=== PATIENT | male | born 1955 | race Two or more races ===

== ENCOUNTER 2020-04-17 12:57 | Inpatient (IN) | payer MEDICARE, SELFPAY ==
[2020-04-17 13:45] VITALS: BP 119/74; PULSE 70; RESP 18; TEMP 36.9; O2SAT 98
--- NOTE | 2020-04-17 14:38 | ED.GENADULT ---
HPI - General Adult General Chief complaint: General Medical Stated complaint: gi bleed Time Seen by Provider: 04/17/20 14:22 Source: patient Mode of arrival: ambulatory Limitations: no limitations History of Present Illness HPI narrative: 64 yo male with past medical history of eczema, OA, obesity, GERD, HLD, HTN, tubular adenoma here with rectal bleeing. Patient tells me Yesterday he had some constipation and straining but today went to move his bowels and noticed bright red bleeding from the rectum. He tells me it filled the toilet bowl and was liquid stool. Had 5 or 6 episodes of this and then brought himself into the emergency department. No abdominal pain, vomiting. No fevers or chills. Denies current alcohol use. Last colonoscopy in [address] Arreaga which showed severe diverticulosis in the sigmoid left colon and internal and external hemorrhoids. Takes naproxen PRN (several times weekly). Onset (ago): day(s) (1 day ) Radiation: non-radiation Severity: mild Relieving factors: none Exacerbating factors: none Associated symptoms: denies other symptoms Treatments prior to arrival: none Related Data Home Medications Medication Instructions Recorded Confirmed aspirin 81 mg tablet,delayed 81 mg PO DAILY 04/04/20 04/17/20 release fexofenadine 180 mg tablet 180 mg PO DAILY 04/04/20 04/17/20 fluticasone propionate 50 2 spray INTRANASAL DAILY 04/04/20 04/17/20 mcg/actuation nasal spray,suspension lisinopril 10 mg tablet 10 mg PO DAILY 04/04/20 04/17/20 Previous Rx's Medication Instructions Recorded blood pressure monitor #1 ea 04/04/20 metronidazole 1 % topical gel 1 applic TOPICAL DAILY #60 g 04/04/20 naproxen 500 mg tablet 500 mg PO BID PRN #60 tab 04/04/20 triamcinolone acetonide 0.5 % 1 applic TOPICAL BID 14 Days #15 g 04/04/20 topical cream Allergies Allergy/AdvReac Type Severity Reaction Status Date / Time No Known Allergies Allergy Verified 04/04/20 11:09 [No Known Allergies*] Review of Systems Review of Systems: Yes all other systems are reviewed and are negative Constitutional: Constitutional: Reports no additional constitutional complaints, Denies body ache(s), Denies chills, Denies fever(s), Denies headache(s) and Denies weakness Eyes: Eyes: Reports no additional eye complaints and Denies change in vision ENT: Reports system reviewed and no additional complaints, except as documented, Denies dizziness, Denies headache(s), Denies nasal congestion, Denies nasal discharge and Denies neck pain Cardiovascular: Cardiovascular: Reports no additional cardiovascular complaints, Denies chest pain, Denies leg edema and Denies dyspnea Respiratory: Respiratory: Reports no additional respiratory complaints, Denies cough and Denies dyspnea Gastrointestinal: Gastrointestinal: Reports no additional gastrointestinal complaints, Denies abdominal pain, Reports hematochezia, Denies diarrhea, Denies nausea and Denies vomiting Genitourinary: Genitourinary: Denies urinary incontinence Musculoskeletal: Musculoskeletal: Reports no additional musculoskeletal complaints, Denies back pain, Denies arthralgias, Denies joint swelling, Denies neck pain, Denies numbness and Denies tingling Integumentary/Breasts: Skin/Breast: Reports system reviewed and no additional complaints, except as docu and Denies rash Neurologic: Reports system reviewed and no additional complaints, except as documented, Denies Abnormal speech present, Denies dizziness, Denies headache(s), Denies numbness, Denies tingling and Denies weakness PMFSH Past Medical History Attestation statement: The following information was validated with the patient. Source: old records reviewed and obtained from family Medical History Alcohol abuse GERD (gastroesophageal reflux disease) Hypercholesterolemia Hypertension Obesity (BMI 30-39.9) Osteoarthritis Tubular adenoma of colon Surgical History History of tonsillectomy Lipoma Family History Family History Father CVD (cardiovascular disease) Stroke Mother No problems noted. Paternal Aunt Myocardial infarction Paternal Uncle Myocardial infarction Social History Social History Alcohol intake: unknown Smoking Status: Unknown if ever smoked Use of substances other than those prescribed or required for medical reasons: No Advance Directives: No Advance Directives Information Provided: No Physical Exam Vital Signs: Vital Signs: Vital Signs Temp Pulse Resp BP Pulse Ox 10/27/20 15:01 98.0 F 64 18 127/79 97 04/17/20 13:45 98.5 F 70 18 119/74 98 Body Mass Index 0.3 Const: General: cooperative, healthy appearing, comfortable and no acute distress Orientation/consciousness: patient oriented x3 Limitations: no limitations HENMT: Head: Yes normal to inspection Ears: hearing grossly normal bilaterally General nose exam: Normal external nose present Face and sinus: Yes normal facial exam Mouth: Normal oral and palatal mucosa present Throat: Yes posterior oropharynx normal Eyes: General: appearance normal, both eyes and all related structures Pupils: Equal, round and reactive pupils present Neck: Neck: Yes normal visual inspection Chest: Chest palpation & inspection: normal inspection of the chest Resp: Effort & Inspection: normal respiratory effort Auscultation: clear to auscultation bilaterally Cardio: Rate: regular rate Rhythm: regular rhythm Peripheral pulses: Peripheral pulses 2+ throughout GI: Inspection: Yes normal to inspection Palpation (GI): Soft to palpation and nontender Auscultation: normal bowel sounds Rectal Exam - Male: Yes visual inspection normal, Yes normal sphincter tone, Yes heme positive stool (Bright red ) and Yes tenderness (mild ) Back/Spine/Pelvis: Thoracic/Lumbar Spine: thoracic and lumbar spine normal to inspection Skin: General skin exam: no rashes or lesions noted Neuro: General: patient oriented x3, no focal motor deficits and normal sensation to monofilament Cranial nerves: Yes Equal, round and reactive pupils present Cognition (Neuro): normal cognition Speech: No Abnormal speech present Gait exam (Neuro): Normal gait present Motor exam (neuro): 5/5 motor strength present throughout Extrem: General: Yes normal to inspection Course Course Course Narrative: Patient here with rectal bleeding since this morning. Six episodes, bright red feelings with the bowl. No abdominal pain. Stable vital signs and well appearing with benign abdomen. Rectal exam shows bright red blood. Will check labs. 1530- Labs are unremarkable. Call out to GI to discuss. No additional episodes while the patient has been here in the emergency department for 2.5hrs. Briefly spoke to Dr Perez from GI. Patient will need observation x 24 hrs. She is in a procedure and will call back when done. Ordered Rapid COVID for admission. 1600-Patient called me to bathroom as he had one large bowel movement liquid and BRB filling the toilet bowl. Brought back to room. Ordered lactic acid, type and screen. Spoke to attending physician Dr Murphy who recommended CT A/P with IV contrast. 1700-Call back from Dr Perez. Recommended speaking to general surgery as patient has been followed by them with scheduled colonoscopies d/t the history of tubular adenoma. She did request a GI bleed study unfortunately the patient has already had a CT A/P with IV contrast. Will discuss with general surgery when results back. Sign out to Desirae PHELPS pending above. Medical Decision Making MDM Narrative Medical decision making narrative: Considered internal/external hemorrhoid, diverticulitis, GI bleeding, ischemic colitis. Less likely diverticulitis with no abdominal pain, vomiting, fever. Less likely ischemic colitis with normal vital signs, no fever and no abdominal pain. Less likely GI bleeding with no continued symptoms. May be hemorrhoids. Medical Records Medical records reviewed: Yes I reviewed the patient's medical records. Lab Data Lab results reviewed: Yes I reviewed the patient's lab results. Result diagrams: 04/17/20 15:03 04/17/20 15:03 Labs: Lab Results 04/17/20 04/17/20 04/17/20 Range/Units 15:03 15:03 15:03 WBC 7.3 (4.8-10.8) X10*3/uL RBC 4.56 L (4.60-5.80) X10*6/uL Hgb 13.0 L (14.0-18.0) g/dl Hct 40.5 L (42-52) % MCV 88.8 (80-98) fL MCH 28.5 (27.0-33.0) pg MCHC 32.1 (31.0-36.0) g/dl RDW 13.2 (11.0-16.0) % Plt Count 185 (160-400) X10*3/uL MPV 12.8 H (9.4-12.4) fL Immature Gran % (Auto) 0.5 H (0.0-0.4) % Neut % (Auto) 73.6 H (45-73) % Lymph % (Auto) 17.1 L (20-40) % [place] % (Auto) 6.8 (2-11) % Eos % (Auto) 1.6 (0-4) % Baso % (Auto) 0.4 (0-2) % Lymph # (Auto) 1.3 (1.2-4.9) X10*3/uL [place] # (Auto) 0.5 (0.1-1.2) X10*3/uL Eos # (Auto) 0.1 (0.0-0.4) X10*3/uL Baso # (Auto) 0.0 (0.0-0.2) X10*3/uL Abs Immat Gran (auto) 0.04 H (0.00-0.03) X10*3/uL Absolute Neuts (auto) 5.4 (2.0-8.3) X10*3/uL Absolute Nucleated RBC 0.000 (0.0-0.012) X10*3/uL Nucleated RBC % (auto) 0.0 (0.0-0.2) /100WBC PT 14.6 H (10.8-13.0) SEC INR 1.2 H (0.9-1.1) Sodium 143 (135-145) mmol/L Potassium 4.4 (3.3-5.1) mmol/l Chloride 108 (96-108) mmol/L Carbon Dioxide 26 (22-29) mmol/L Anion Gap 13 (12-20) BUN 22 H (9-16) mg/dL Creatinine 0.73 (0.5-1.4) mg/dL Estim Creat Clear Calc 123.8 Estimated GFR > 60 Random Glucose 98 (60-115) mg/dL Lactic Acid (0.5-2.0) mmol/L Calcium 9.0 (8.4-10.2) mg/dL Total Bilirubin 0.5 (0.0-1.0) mg/dL Direct Bilirubin 0.2 (0.0-0.5) mg/dL AST 18 (5-37) U/L ALT 15 (0-40) U/L Alkaline Phosphatase 80 (39-117) U/L Total Protein 6.4 L (6.5-8.0) g/dL Albumin 3.9 (3.5-5.0) g/dL Stool Occult Blood (NEG) Blood Type Antibody Screen 04/17/20 04/17/20 04/17/20 Range/Units 15:03 16:09 16:09 WBC (4.8-10.8) X10*3/uL RBC (4.60-5.80) X10*6/uL Hgb (14.0-18.0) g/dl Hct (42-52) % MCV (80-98) fL MCH (27.0-33.0) pg MCHC (31.0-36.0) g/dl RDW (11.0-16.0) % Plt Count (160-400) X10*3/uL MPV (9.4-12.4) fL Immature Gran % (Auto) (0.0-0.4) % Neut % (Auto) (45-73) % Lymph % (Auto) (20-40) % [place] % (Auto) (2-11) % Eos % (Auto) (0-4) % Baso % (Auto) (0-2) % Lymph # (Auto) (1.2-4.9) X10*3/uL [place] # (Auto) (0.1-1.2) X10*3/uL Eos # (Auto) (0.0-0.4) X10*3/uL Baso # (Auto) (0.0-0.2) X10*3/uL Abs Immat Gran (auto) (0.00-0.03) X10*3/uL Absolute Neuts (auto) (2.0-8.3) X10*3/uL Absolute Nucleated RBC (0.0-0.012) X10*3/uL Nucleated RBC % (auto) (0.0-0.2) /100WBC PT (10.8-13.0) SEC INR (0.9-1.1) Sodium (135-145) mmol/L Potassium (3.3-5.1) mmol/l Chloride (96-108) mmol/L Carbon Dioxide (22-29) mmol/L Anion Gap (12-20) BUN (9-16) mg/dL Creatinine (0.5-1.4) mg/dL Estim Creat Clear Calc Estimated GFR Random Glucose (60-115) mg/dL Lactic Acid 1.7 (0.5-2.0) mmol/L Calcium (8.4-10.2) mg/dL Total Bilirubin (0.0-1.0) mg/dL Direct Bilirubin (0.0-0.5) mg/dL AST (5-37) U/L ALT (0-40) U/L Alkaline Phosphatase (39-117) U/L Total Protein (6.5-8.0) g/dL Albumin (3.5-5.0) g/dL Stool Occult Blood POS (NEG) Blood Type AB Positive Antibody Screen NEGATIVE Discharge Plan Discharge Clinical Impression: Acute GI bleeding Patient Disposition: Admitted As Inpatient Sign Out Sign Out Data: Sign Out Comment: Pending CT A/P, discussion with general surgery and admit Last updated by Nargis Ta NP at 04/17/20 17:03
[2020-04-17 15:01] VITALS: BP 127/79; PULSE 64; RESP 18; TEMP 36.7; O2SAT 97
[2020-04-17 15:09] LABS: MANUAL DIFF FLAG NO
[2020-04-17 15:13] LABS: Basophils Percent Auto 0.4 % (0-2); Eosinophils Absolute Auto 0.1 X10*3/uL (0.0-0.4); Eosinophils Percent Auto 1.6 % (0-4); Hematocrit 40.5 % (42-52); Imm Gran Abs Auto 0.04 X10*3/uL (0.00-0.03); Imm Gran Pct Auto 0.5 % (0.0-0.4); Lymphocytes Absolute Auto 1.3 X10*3/uL (1.2-4.9); Lymphocytes Percent Auto 17.1 % (20-40); Mean Corpuscular HGB Conc 32.1 g/dl (31.0-36.0); Mean Corpuscular Hemoglobin 28.5 pg (27.0-33.0); Mean Corpuscular Volume 88.8 fL (80-98); Mean Platelet Volume 12.8 fL (9.4-12.4); Monocytes Absolute Auto 0.5 X10*3/uL (0.1-1.2); Monocytes Percent Auto 6.8 % (2-11); Neutrophils Absolute Auto 5.4 X10*3/uL (2.0-8.3); Neutrophils Percent Auto 73.6 % (45-73); Platelet Count 185 X10*3/uL (160-400); Red Blood Count 4.56 X10*6/uL (4.60-5.80); Red Cell Distribution Width 13.2 % (11.0-16.0); White Blood Count 7.3 X10*3/uL (4.8-10.8)
[2020-04-17 15:14] LABS: OBS Int Ctl Valid YES
[2020-04-17 15:18] LABS: INTERNATIONAL NORM RATIO 1.2 (0.9-1.1); Prothrombin Time 14.6 SEC (10.8-13.0)
[2020-04-17 15:32] LABS: OBS1 POS (NEG)
[2020-04-17 15:33] LABS: Alanine Aminotransferase 15 U/L (0-40); Albumin Level 3.9 g/dL (3.5-5.0); Alkaline Phosphatase 80 U/L (39-117); Anion Gap 13 (12-20); Aspartate Amino Transferase 18 U/L (5-37); Bilirubin Direct 0.2 mg/dL (0.0-0.5); Bilirubin Total 0.5 mg/dL (0.0-1.0); Blood Urea Nitrogen 22 mg/dL (9-16); Carbon Dioxide 26 mmol/L (22-29); Chloride 108 mmol/L (96-108); Creatinine Clr Calc Pharmacy 123.8; Estimated Glomerular Filt Rate > 60; Glucose Random 98 mg/dL (60-115); Potassium 4.4 mmol/l (3.3-5.1); Sodium 143 mmol/L (135-145); Total Protein 6.4 g/dL (6.5-8.0)
--- NOTE | 2020-04-17 15:59 | CT_ITS ---
EXAMINATION: CT ABDOMEN AND PELVIS WITH CONTRAST CLINICAL INFORMATION: Rectal bleeding. COMPARISON: None TECHNIQUE: Multidetector volumetric images were obtained from the superior aspect of the liver through the pubic symphysis following administration 85 mL of Omnipaque 350 intravenous contrast. Sagittal and coronal reformatted images were obtained on the technologist's workstation. Oral Contrast: No. This CT examination was performed using dose optimization techniques as appropriate, variously including the following: *Automated exposure control. *Adjustment of mA and/or kV according to patient size (this includes techniques or standardized protocols for targeted exams where dose is matched to indication/reason for exam; i.e. extremities or head). *Use of iterative reconstruction technique. DLP: 650 mGy-cm FINDINGS: LUNG BASES: The visualized lung bases are unremarkable. LIVER, GALLBLADDER, AND BILIARY TREE: The liver is normal in size, shape, and attenuation. No focal hepatic lesion or biliary ductal dilatation is present. The gallbladder is unremarkable with no evidence of radiopaque gallstones, gallbladder wall thickening, or obvious pericholecystic inflammatory changes. PANCREAS: Unremarkable. SPLEEN: A small splenule is seen. ADRENAL GLANDS: Unremarkable. KIDNEYS AND URETERS: The kidneys are normal in size, shape, and attenuation. Multiple bilateral small renal hypodensities are seen, the largest of which measures 1.1 cm. The larger lesions measure water density and these all probably represent cysts. Small parapelvic cysts are also present bilaterally. No suspicious solid mass is seen. No hydronephrosis, hydroureter, or calculi seen. No perinephric stranding. BLADDER: Unremarkable. GASTROINTESTINAL TRACT: Moderately extensive diverticular changes are present in the colon without evidence of diverticulitis. The small and large bowel are otherwise unremarkable. There is no evidence of active GI bleed with extravasation of contrast media. The appendix is unremarkable. ABDOMINAL WALL: No significant hernia is appreciated. A small indirect right renal hernia is present containing only fat. LYMPH NODES: Normal. VASCULAR: Unremarkable. PELVIC VISCERA: Prostate and seminal vesicles appear normal. Some calcifications are present in the vas deferens. OSSEOUS STRUCTURES: Degenerative changes in the lumbosacral spine most marked from L3 through S1. CT/CT abdomen pelvis w con IMPRESSION: No significant abnormality. Incidental note made of bilateral small renal cysts, colonic diverticulosis without diverticulitis and degenerative changes in the spine.
[2020-04-17 16:38] LABS: Lactic Acid 1.7 mmol/L (0.5-2.0)
[2020-04-17 17:16] LABS: SARS COV2 PCR INHOUSE NEGATIVE (Negative)
[2020-04-17] MEDS: iohexoL 350 MG/ML 100 ML INFUS..BTL IV (17:17)
[2020-04-17 17:59] VITALS: BP 123/79; PULSE 63; RESP 18; O2SAT 98
[2020-04-17 19:25] VITALS: BP 151/94; PULSE 70; RESP 14; O2SAT 99
--- NOTE | 2020-04-17 19:41 | PC.NURSE ---
Pt A&O, denies sob or chest pain Hospitalist into assess Pt. The plan is for pt to be admitted, will continue to monitor pt. Call flores within reach, pt resting in bed.
[2020-04-17 20:55] VITALS: BP 117/75; PULSE 70; RESP 16; O2SAT 97
--- NOTE | 2020-04-17 20:58 | PC.NURSE ---
Called for report, Rn will call back
--- NOTE | 2020-04-17 21:14 | HP_ITS ---
DATE OF SERVICE: 04/17/2020 CHIEF COMPLAINT: Rectal bleeding. HISTORY OF PRESENT ILLNESS: A 64-year-old man, presenting from home with episodes of rectal bleeding. He reported that this morning around 6 a.m., he had blood with a bowel movement that was mixed with stool and noticed that there was dark blood maroon color. He then reports he had 7 other episodes of this after. He denies any history of GI bleed in the past, however, he does have a history of tubular adenomas. He denied nausea, vomiting, fever, chills, recent illness. He denied any abdominal pain or cramping. Last colonoscopy was in 2017, which showed severe diverticulosis in the left sigmoid colon with internal and external hemorrhoids. The patient reports that he does take naproxen as needed, but not on a regular basis. Abdominal CT showed no significant abnormality. His H and H are stable. Stool occult was positive. Vitals are stable. Blood pressure was mildly elevated. In the ER, he is resting in bed. He will be admitted for further management and treatment of acute GI bleed. PAST MEDICAL HISTORY: 1. Arthritis. 2. Tubular adenomas. 3. Hypertension. 4. GERD. 5. Hyperlipidemia. 6. Osteoarthritis. 7. Obesity. PAST SURGICAL HISTORY: 1. Tonsillectomy. 2. Lipoma removal. FAMILY HISTORY: Reports cardiovascular disease and stroke in his father. Paternal aunt had myocardial infarction, paternal uncle had myocardial infarction as well. SOCIAL HISTORY: Reports he quit smoking 11 years ago. Occasional alcohol use. No drug use. ALLERGIES: NO KNOWN ALLERGIES. MEDICATIONS: 1. Aspirin 81 mg p.o. daily. 2. Janay 180 mg p.o. daily. 3. Fluticasone propionate 2 sprays intranasally daily. 4. Lisinopril 10 mg p.o. daily. 5. Metrogel 1 application topically daily. 6. Triamcinolone acetonide 1 application topically b.i.d. REVIEW OF SYSTEMS: CONSTITUTIONAL: Denies any recent fever, chills, or decrease in appetite. RESPIRATORY: Denies any shortness of breath, cough, or sputum production. CARDIOVASCULAR: Denies any chest pain, orthopnea, PND, or edema. GASTROINTESTINAL: Denies any dysphagia, abdominal pain, nausea, vomiting. Reported diarrhea with bloody stool. NEUROPSYCH: Denies any weakness or seizures. All other systems are reviewed and are negative. PHYSICAL EXAMINATION: CONSTITUTIONAL: Resting in bed, appearing in no acute distress. VITAL SIGNS: 98.0, 70, 14, 151/94, 99% on room air. SKIN: Intact without rashes or sores. HEENT: Head is normocephalic, atraumatic. Eyes, pupils are PERRLA. Sclerae anicteric. Mouth and Throat: Mucous membranes are intact and moist. NECK: Supple. No lymphadenopathy. No JVD noted. CHEST: Clear to auscultation without wheezes, rhonchi, or rales. HEART: Regular rate and rhythm. Clear S1, S2. No murmurs, rubs, or gallops. ABDOMEN: Positive bowel sounds. Abdomen is soft, nontender. No hepatomegaly or splenomegaly noted. NEURO: The patient is alert and oriented x3. Cranial nerves II through XII grossly intact without focal deficits. LABORATORY DATA: WBC 7.3, hemoglobin 13.0, hematocrit 40.5, platelets 185. Sodium is 143, potassium is 4.4, chloride is 108, bicarb is 26, BUN is 22, creatinine is 0.73. Lactic acid is 1.7. Stool occult positive. Coronavirus negative. ASSESSMENT AND PLAN: 64-year-old man, who is being admitted with acute GI bleed with history of tubular adenoma. 1. Gastrointestinal bleed, may be related to tubular adenoma. GI to follow. We will check H and H q.6 hours, type and screen. N.p.o. after midnight. Hold aspirin. Add PPI. 2. Hypertension. Stable blood pressure. Continue lisinopril. 3. Deep vein thrombosis prophylaxis with mechanical compression boots. 4. Case discussed with Dr. Matos. 5. Full code. SHANTELLE Sheldon JR/NOEL / [id number]
--- NOTE | 2020-04-17 21:29 | PC.NURSE ---
Pt a&o, no sob or chest pain. no dizziness or lightheadness. report called to RN.
[2020-04-17 21:56] VITALS: BP 138/89; PULSE 83; RESP 18; TEMP 36.9; O2SAT 98
[2020-04-17 22:20] LABS: Hemoglobin 12.3 g/dl (14.0-18.0)
[2020-04-17] MEDS: 0.9 % Sodium Chloride Flush 3 ML SYRINGE IVFLUSH (22:37)
[2020-04-17 23:07] VITALS: BMI 33.0
[2020-04-18] VITALS: BP 121/63; PULSE 73; RESP 18; TEMP 36.3; O2SAT 97
[2020-04-18 03:38] VITALS: BP 116/62; PULSE 70; RESP 18; TEMP 36.4; O2SAT 97
[2020-04-18] MEDS: Omeprazole 20 MG CAPSULE.DR PO ×2 (05:07→16:30)
[2020-04-18 06:21] LABS: MANUAL DIFF FLAG NO
[2020-04-18 06:41] LABS: Basophils Percent Auto 0.1 % (0-2); Eosinophils Absolute Auto 0.2 X10*3/uL (0.0-0.4); Eosinophils Percent Auto 2.5 % (0-4); Hematocrit 38.9 % (42-52); Hemoglobin 12.5 g/dl (14.0-18.0); Imm Gran Abs Auto 0.05 X10*3/uL (0.00-0.03); Imm Gran Pct Auto 0.7 % (0.0-0.4); Lymphocytes Absolute Auto 1.6 X10*3/uL (1.2-4.9); Lymphocytes Percent Auto 22.6 % (20-40); Mean Corpuscular HGB Conc 32.1 g/dl (31.0-36.0); Mean Corpuscular Hemoglobin 28.5 pg (27.0-33.0); Mean Corpuscular Volume 88.8 fL (80-98); Mean Platelet Volume 12.1 fL (9.4-12.4); Monocytes Absolute Auto 0.6 X10*3/uL (0.1-1.2); Monocytes Percent Auto 8.9 % (2-11); Neutrophils Absolute Auto 4.7 X10*3/uL (2.0-8.3); Neutrophils Percent Auto 65.2 % (45-73); Platelet Count 195 X10*3/uL (160-400); Red Blood Count 4.38 X10*6/uL (4.60-5.80); Red Cell Distribution Width 13.3 % (11.0-16.0); White Blood Count 7.2 X10*3/uL (4.8-10.8)
[2020-04-18 07:03] LABS: Anion Gap 12 (12-20); Blood Urea Nitrogen 21 mg/dL (9-16); Calcium 8.2 mg/dL (8.4-10.2); Carbon Dioxide 24 mmol/L (22-29); Chloride 106 mmol/L (96-108); Creatinine Clr Calc Pharmacy 103.3; Estimated Glomerular Filt Rate > 60; Glucose Random 95 mg/dL (60-115); Potassium 4.3 mmol/l (3.3-5.1); Sodium 138 mmol/L (135-145)
[2020-04-18 07:22] VITALS: BP 131/65; PULSE 61; RESP 20; TEMP 36.7; O2SAT 98
[2020-04-18 08:19] VITALS: BP 131/65; PULSE 61
[2020-04-18] MEDS: lisinopriL 10 MG TABLET PO (08:19)
[2020-04-18] MEDS: Fluticasone Propionate Nasal 16 GM SPRAY 2 SPRAY NOSTRIL-B (08:19)
[2020-04-18] MEDS: 0.9 % Sodium Chloride Flush 3 ML SYRINGE IVFLUSH (08:19)
--- NOTE | 2020-04-18 09:34 | PM.DS ---
DS: Providers Provider Date of admission: 04/17/20 Date of Service: April 18, 2020 D Primary care physician: Jennifer Downing MD Consults: 04/17/20 21:31 Consult to Gastroenterology Routine Consulting Provider: Antoni Gerardo Reason for consultation: GI BLEED, HX TUBULAR ADENOMA Has provider been notified: No DS: Summary Hospital Course Hospital Course: HPI from admission A 64-year-old man, presenting from home with episodes of rectal bleeding. He reported that this morning around 6 a.m., he had blood with a bowel movement that was mixed with stool and noticed that there was dark blood maroon color. He then reports he had 7 other episodes of this after. He denies any history of GI bleed in the past, however, he does have a history of tubular adenomas. He denied nausea, vomiting, fever, chills, recent illness. He denied any abdominal pain or cramping. Last colonoscopy was in 2017, which showed severe diverticulosis in the left sigmoid colon with internal and external hemorrhoids. The patient reports that he does take naproxen as needed, but not on a regular basis. Abdominal CT showed no significant abnormality. His H and H are stable. Stool occult was positive. Vitals are stable. Blood pressure was mildly elevated. In the ER, he is resting in bed. He will be admitted for further management and treatment of acute GI bleed. PAST MEDICAL HISTORY: 1. Arthritis. 2. Tubular adenomas. 3. Hypertension. 4. GERD. 5. Hyperlipidemia. 6. Osteoarthritis. 7. Obesity. PAST SURGICAL HISTORY: 1. Tonsillectomy. 2. Lipoma removal. Hospital course: He was observed overnight and did not have any further bleeding. His blood count has been stable with present Hemoglobin 12.5, 13 on admission. Time Spent with Patient Time attestation: Total time spent providing and/or coordinating discharge services: Physical Exam Vital Signs: Vital Signs: Vital Signs Temp Pulse Resp BP Pulse Ox 04/18/20 08:19 61 131/65 04/18/20 07:22 98.1 F 61 20 131/65 98 04/18/20 03:38 97.5 F 70 18 116/62 97 04/18/20 00:00 97.3 F 73 18 121/63 97 04/17/20 21:56 98.4 F 83 18 138/89 98 04/17/20 20:55 70 16 117/75 97 04/17/20 19:25 70 14 151/94 H 99 04/17/20 17:59 63 18 123/79 98 04/17/20 15:01 98.0 F 64 18 127/79 97 04/17/20 13:45 98.5 F 70 18 119/74 98 Body Mass Index 33.0 Constitutional Awake and Alert, No apparent distress Neck Supple, No lymphadenopathy Cardiovascular RRR, No M/R/G, S1 S2, No S3 S4, No pedal edema Respiratory Lungs clear, No respiratory distress Gastrointestinal Non tender, Non-distended, rectal exam deffered Skin No rash Neurological Alert & oriented x3 Psychological Appropriate affect DS: Data Data Completed and Pending Labs on day of discharge: Labs from last 24 hours 04/18/20 04/18/20 04/17/20 05:34 05:34 22:10 WBC 7.2 RBC 4.38 L Hgb 12.5 L 12.3 L Hct 38.9 L 38.0 L MCV 88.8 MCH 28.5 MCHC 32.1 RDW 13.3 Plt Count 195 MPV 12.1 Immature Gran % (Auto) 0.7 H Neut % (Auto) 65.2 Lymph % (Auto) 22.6 Bradford % (Auto) 8.9 Eos % (Auto) 2.5 Baso % (Auto) 0.1 Lymph # (Auto) 1.6 Bradford # (Auto) 0.6 Eos # (Auto) 0.2 Baso # (Auto) 0.0 Abs Immat Gran (auto) 0.05 H Absolute Neuts (auto) 4.7 Absolute Nucleated RBC 0.000 Nucleated RBC % (auto) 0.0 PT INR Sodium 138 Potassium 4.3 Chloride 106 Carbon Dioxide 24 Anion Gap 12 BUN 21 H Creatinine 0.70 Estim Creat Clear Calc 103.3 Estimated GFR > 60 Random Glucose 95 Lactic Acid Calcium 8.2 L Total Bilirubin Direct Bilirubin AST ALT Alkaline Phosphatase Total Protein Albumin Stool Occult Blood Coronavirus (PCR) Blood Type Antibody Screen 04/17/20 04/17/20 04/17/20 16:12 16:09 16:09 WBC RBC Hgb Hct MCV MCH MCHC RDW Plt Count MPV Immature Gran % (Auto) Neut % (Auto) Lymph % (Auto) Bradford % (Auto) Eos % (Auto) Baso % (Auto) Lymph # (Auto) Bradford # (Auto) Eos # (Auto) Baso # (Auto) Abs Immat Gran (auto) Absolute Neuts (auto) Absolute Nucleated RBC Nucleated RBC % (auto) PT INR Sodium Potassium Chloride Carbon Dioxide Anion Gap BUN Creatinine Estim Creat Clear Calc Estimated GFR Random Glucose Lactic Acid 1.7 Calcium Total Bilirubin Direct Bilirubin AST ALT Alkaline Phosphatase Total Protein Albumin Stool Occult Blood Coronavirus (PCR) NEGATIVE Blood Type AB Positive Antibody Screen NEGATIVE 04/17/20 04/17/20 04/17/20 15:03 15:03 15:03 WBC RBC Hgb Hct MCV MCH MCHC RDW Plt Count MPV Immature Gran % (Auto) Neut % (Auto) Lymph % (Auto) Bradford % (Auto) Eos % (Auto) Baso % (Auto) Lymph # (Auto) Bradford # (Auto) Eos # (Auto) Baso # (Auto) Abs Immat Gran (auto) Absolute Neuts (auto) Absolute Nucleated RBC Nucleated RBC % (auto) PT 14.6 H INR 1.2 H Sodium 143 Potassium 4.4 Chloride 108 Carbon Dioxide 26 Anion Gap 13 BUN 22 H Creatinine 0.73 Estim Creat Clear Calc 123.8 Estimated GFR > 60 Random Glucose 98 Lactic Acid Calcium 9.0 Total Bilirubin 0.5 Direct Bilirubin 0.2 AST 18 ALT 15 Alkaline Phosphatase 80 Total Protein 6.4 L Albumin 3.9 Stool Occult Blood POS Coronavirus (PCR) Blood Type Antibody Screen 04/17/20 15:03 WBC 7.3 RBC 4.56 L Hgb 13.0 L Hct 40.5 L MCV 88.8 MCH 28.5 MCHC 32.1 RDW 13.2 Plt Count 185 MPV 12.8 H Immature Gran % (Auto) 0.5 H Neut % (Auto) 73.6 H Lymph % (Auto) 17.1 L Bradford % (Auto) 6.8 Eos % (Auto) 1.6 Baso % (Auto) 0.4 Lymph # (Auto) 1.3 Bradford # (Auto) 0.5 Eos # (Auto) 0.1 Baso # (Auto) 0.0 Abs Immat Gran (auto) 0.04 H Absolute Neuts (auto) 5.4 Absolute Nucleated RBC 0.000 Nucleated RBC % (auto) 0.0 PT INR Sodium Potassium Chloride Carbon Dioxide Anion Gap BUN Creatinine Estim Creat Clear Calc Estimated GFR Random Glucose Lactic Acid Calcium Total Bilirubin Direct Bilirubin AST ALT Alkaline Phosphatase Total Protein Albumin Stool Occult Blood Coronavirus (PCR) Blood Type Antibody Screen Discharge Plan Discharge Anticipated Discharge Date/Time: 04/18/20 17:03 Patient Disposition: Home, Self-Care Referrals: Chang,Jennifer Wooten MD [Primary Care Provider] - Discharge Medications: New esomeprazole magnesium [address] for susp in packet 20 mg PO DAILY Qty: 30 RF: 0 Continued lisinopril 10 mg tablet 10 mg PO DAILY RF: 0 fexofenadine [Janay Allergy] 180 mg tablet 180 mg PO DAILY RF: 0 fluticasone propionate 50 mcg/actuation spray,suspension 2 spray intranasal DAILY RF: 0 metronidazole [Metrogel] 1 % gel 1 applic topical DAILY Qty: 60 RF: 0 Discontinued aspirin [Adult Aspirin Regimen] 81 mg tablet,delayed release (DR/EC) 81 mg PO DAILY RF: 0 naproxen [Naprosyn] 500 mg tablet 500 mg PO BID PRN (Reason: pain) Qty: 60 RF: 2 No Action ibuprofen 800 mg tablet 800 mg PO BID 10 Days Qty: 20 RF: 0 furosemide 20 mg tablet 20 mg PO Q OTHER DAY 30 Days Qty: 15 RF: 0 omeprazole 20 mg capsule,delayed release(DR/EC) 20 mg PO DAILY 30 Days Qty: 30 RF: 0 magnesium 30 mg tablet 30 mg PO DAILY 30 Days Qty: 30 RF: 0 Discharge Orders: Discharge Order (Routine); Ordered 04/18/20 Ordered By: Klaus Devlin Diet: advance to your usual diet Activity on Discharge: As tolerated Discharge Date/Time: 04/18/20 18:23 Visit Report Forms: Patient Portal Discharge page Care Plan Goals: to figure out where bleeding is coming from Health Concerns: colon problems that can cause bleeding Plan of Treatment: follow up with Dr. Gerardo for colonoscopy, stop taking Naproxen and ASA for now
--- NOTE | 2020-04-18 10:01 | MHC.CM.PN ---
pt is independet lives with his and 2 children he is working and independent cm intervention is not indicated
[2020-04-18 11:09] VITALS: BP 114/66; PULSE 69; RESP 18; TEMP 36.3; O2SAT 98
--- NOTE | 2020-04-18 11:31 | MHC.CM.PN ---
dc plan home no servceis pt has own transportion home
[2020-04-18 12:10] VITALS: BMI 33.0
[2020-04-18 13:21] LABS: Glucose, Whole Blood 115 mg/dL (60-115)
--- NOTE | 2020-04-18 16:48 | PM.EVENT ---
Event Note Event Note: GI consult dictated Note: consult request received by my office today at 15:21 Presentation is consistent with self limited rectal bleeding. Last colonoscopy 03/08 showed diverticulosis and hemorrhoids. Previous history of colon polyps. Some NSAID use for osteoarthritis could be contributing. Differential includes hemorrhoids, tics, avms colitis and mass lesions. Currently stable with no further bleeding. OK to d/c home He will call my office to schedule outpt colonoscopy.
--- NOTE | 2020-04-19 00:47 | CONS_ITS ---
DATE OF SERVICE: 04/18/2020 REFERRING PHYSICIAN: Klaus Devlin MD REASON FOR CONSULTATION: Rectal bleeding. HISTORY OF PRESENT ILLNESS: The patient is a pleasant 64-year-old man who was admitted to the hospital after presenting to the emergency room with the onset of painless rectal bleeding yesterday. This began in the morning after he ate and had the urge to move his bowels. He passed blood in stool and had multiple bowel movements of red blood with some dark spots in it. There was no abdominal or rectal pain. He has been using some NSAIDs for osteoarthritis pain intermittently, but not on a regular basis. He has no prior history of rectal bleeding and previously underwent colonoscopy in February 2017 that showed diverticulosis and hemorrhoids. Previous colonoscopy had shown adenomas. He was evaluated in the emergency department and admitted to the hospital overnight. He has had no further bleeding and has tolerated diet. His hematocrit has been quite stable. PAST MEDICAL HISTORY: 1. Osteoarthritis. 2. Colon polyps. 3. Hypertension. 4. Gastroesophageal reflux disease. 5. Hyperlipidemia. 6. Elevated BMI. 7. Lipoma surgery from the left forearm. 8. Tonsillectomy. CURRENT MEDICATIONS: His current medication list is reviewed in the chart. He is on aspirin as well as using the NSAIDs. FAMILY HISTORY: This is negative for colorectal cancer. SOCIAL HISTORY: He denies tobacco and alcohol abuse. REVIEW OF SYSTEMS: SKIN: No pruritus. HEENT: Negative. CARDIOPULMONARY: He denies shortness of breath or chest pain. GASTROINTESTINAL: As above. GENITOURINARY: Negative. NEUROPSYCHIATRIC: Negative. PHYSICAL EXAMINATION: GENERAL: Reveals a pleasant male, in no acute distress. VITAL SIGNS: Stable. SKIN: Anicteric. HEENT: Shows no scleral icterus. NECK: Without lymphadenopathy or thyromegaly. LUNGS: Clear. HEART: Shows regular rate and rhythm. S1, S2. No murmur. ABDOMEN: Soft without focal masses or tenderness. Bowel sounds are present. No organomegaly is noted. EXTREMITIES: Without edema. IMPRESSION: Appears to have had self-limited gastrointestinal bleeding. The differential diagnosis for this includes hemorrhoids and diverticulosis as well as arteriovenous malformations and colitis given his nonsteroidal anti-inflammatory drugs usage. CT scanning did not show any evidence of any significant abnormalities. Given that he is stable and not had any further bleeding with a stable H and H, I would recommend he be discharged for outpatient followup. He has been advised to contact my office to schedule colonoscopy. This will be arranged. He understands risks and benefits and agrees to proceed. Thanks for asking me to see him. I will follow him in the hospital as needed. MD AMY Humphreys/NOEL / [phone]
== END 2020-04-18 18:23 | disposition home or self-care (01) | DRG 379 ==
LOC: HO.ED 18:43 → HO.IMC 21:02 → HO.S3 04-18 11:16
PROVIDERS: Nurse Practitioner Acute Care; Nurse Practitioner Family; Admitting Provider Internal Medicine; Emergency Provider Emergency Medicine; PCP Internal Medicine; Visit Provider Internal Medicine
DX: K57.31 Diverticulosis of large intestine without perforation or abscess with bleeding (principal); K21.9 Gastro-esophageal reflux disease without esophagitis; E78.5 Hyperlipidemia, unspecified; M19.90 Unspecified osteoarthritis, unspecified site; Z20.828 Contact with and (suspected) exposure to other viral communicable diseases; Z87.891 Personal history of nicotine dependence; Z79.51 Long term (current) use of inhaled steroids; Z79.82 Long term (current) use of aspirin; Z79.899 Other long term (current) drug therapy
CPT/HCPCS: 36415; 74177; 80048; 80076; 82272; 82947; 83605; 85014; 85018; 85025; 85610; 86850; 86900; 86901; 87635; 99285; Q9967

== ENCOUNTER 2020-04-26 14:00 | Outpatient (REF) | payer MEDICARE, SELFPAY ==
--- NOTE | 2020-04-26 14:05 | US_ITS ---
EXAMINATION: US VENOUS ULTRASOUND WITH DOPPLER LOWER EXTREMITY, RIGHT CLINICAL INFORMATION: Right lower extremity edema. Assess for occult DVT COMPARISON: Right lower extremity venous ultrasound with Doppler 04/04/2019 TECHNIQUE: Ultrasound of the deep veins is performed from the hip to the calf with compression sonography and color and pulse Doppler assessment. Spectral analysis with color-flow imaging is performed. FINDINGS: There is normal venous compression and respiratory variation and augmented flow. The visualized common femoral vein, superficial femoral vein, profunda femoral vein, popliteal vein, and the trifurcation region shows no evidence of deep venous thrombosis. No popliteal fossa cyst. US/US venous duplex LE RT IMPRESSION: No DVT demonstrated in the right lower extremity.
== END 2020-04-26 14:01 | disposition home or self-care (01) ==
LOC: HO.HMGCX 14:00
PROVIDERS: PCP Internal Medicine; Visit Provider Nurse Practitioner Family
DX: R60.0 Localized edema (principal)
CPT/HCPCS: 93971

== ENCOUNTER 2020-05-01 10:36 | Day surgery (SDC) | payer MEDICARE, SELFPAY ==
[2020-04-26 19:56] VITALS: BMI 30.7
--- NOTE | 2020-04-30 10:38 | P.CONAN_ITS ---
Documented by User: Susan Landrum 04/30/20 10:40 HPI - Anesthesia Eval Consult details Narrative: 64yo M for Colonoscopy [facility] Past Medical History Medical History Alcohol abuse GERD (gastroesophageal reflux disease) Hypercholesterolemia Hypertension Obesity (BMI 30-39.9) Osteoarthritis Swelling of right lower extremity Tubular adenoma of colon Family History Family History Father CVD (cardiovascular disease) Stroke Mother No problems noted. Paternal Aunt Myocardial infarction Paternal Uncle Myocardial infarction Surgical History Surgical History History of tonsillectomy Lipoma Social History Social History Household Members: Significant Other Housing: House Alcohol intake: unknown Smoking Status: Former smoker Smoking Quit Date: 2009 Use of substances other than those prescribed or required for medical reasons: No Substance Use Type Other:: patient stated quit ETOH 10 years ago Advance Directives: No Advance Directives Information Provided: No Advance Directives on File: No service: No Meds Allergies Allergy/AdvReac Type Severity Reaction Status Date / Time No Known Allergies Allergy Verified 04/26/20 20:01 [No Known Allergies*] Home Medications Medication Instructions Recorded Confirmed Type fexofenadine 180 mg tablet 180 mg PO DAILY 04/04/20 04/26/20 History fluticasone propionate 50 2 spray INTRANASAL DAILY 04/04/20 04/26/20 History mcg/actuation nasal spray,suspension lisinopril 10 mg tablet 10 mg PO DAILY 04/04/20 04/26/20 History Tylenol Arthritis 650 mg PO Q8-10H PRN 04/26/20 04/26/20 History famotidine 40 mg PO DAILY 04/26/20 04/26/20 History Exam Exam Date and Time: April 30, 2020 1038 Height,Weight and Vital Signs: Height 5 ft 5 in Weight 83.915 kg Pertinent Lab Results Pertinent Lab Results: Laboratory Tests 04/18/20 04/18/20 05:34 05:34 WBC 7.2 Hgb 12.5 L Hct 38.9 L Plt Count 195 Sodium 138 Potassium 4.3 Chloride 106 Carbon Dioxide 24 BUN 21 H Creatinine 0.70 Assessment and Plan Assessment Anesthesia Assessment: Chart Reviewed Documented by User: Sonia Mendez 05/01/20 12:22 PMFSH Past Medical History Medical History Alcohol abuse GERD (gastroesophageal reflux disease) Hypercholesterolemia Hypertension Obesity (BMI 30-39.9) Osteoarthritis Swelling of right lower extremity Tubular adenoma of colon Family History Family History Father CVD (cardiovascular disease) Stroke Mother No problems noted. Paternal Aunt Myocardial infarction Paternal Uncle Myocardial infarction Surgical History Surgical History History of tonsillectomy Lipoma Social History Social History Household Members: Significant Other Housing: House Alcohol intake: unknown Smoking Status: Former smoker Smoking Quit Date: 2009 Use of substances other than those prescribed or required for medical reasons: No Substance Use Type Other:: patient stated quit ETOH 10 years ago Advance Directives: No Advance Directives Information Provided: No Advance Directives on File: No service: No Meds Allergies Allergy/AdvReac Type Severity Reaction Status Date / Time No Known Allergies Allergy Verified 04/26/20 20:01 [No Known Allergies*] Home Medications Medication Instructions Recorded Confirmed Type fexofenadine 180 mg tablet 180 mg PO DAILY 04/04/20 04/26/20 History fluticasone propionate 50 2 spray INTRANASAL DAILY 04/04/20 04/26/20 History mcg/actuation nasal spray,suspension lisinopril 10 mg tablet 10 mg PO DAILY 04/04/20 04/26/20 History Tylenol Arthritis 650 mg PO Q8-10H PRN 04/26/20 04/26/20 History famotidine 40 mg PO DAILY 04/26/20 04/26/20 History Exam Airway Mallampati Class: II TM Dist: >3cm Neck ROM: Full Partial: Upper Loose/Missing/Broken Teeth: Yes, Upper and Lower Heart: RRR Lungs: CTA Assessment and Plan Assessment Anesthesia Assessment: Anesthesia Plan Discussed and Chart Reviewed Final Anesthetic Review NPO: Yes ASA Class: II Final Preanesthetic Review: Meds/Allgs Chart Reviewed, Consent Obtained/Reviewed and Anes Risks/Benef Reviewed Patient Risk: Low Procedure Risk: Low Anesthetic Plan Anesthetic Plan: MAC: Disposition: Standard PACU
[2020-05-01 10:54] VITALS: BP 166/56; PULSE 55; RESP 18; TEMP 36.6; O2SAT 97
[2020-05-01] MEDS: Lactated Ringers 1,000 ML 100 ML IVCONT (11:11)
--- NOTE | 2020-05-01 11:25 | MHC.SHP ---
Pre-Procedural Eval Section A The patient is an INPATIENT: No Changes since office visit: No Cold of Flu in the past 2 weeks, No New Medical Problems, No Changes in Medication and No Patient answered all questions The History & Physical has been completed within 30 days and I have reviewed it.: Yes Section B Chief Complaint: Rectal Bleeding Allergies: Allergies Allergy/AdvReac Type Severity Reaction Status Date / Time No Known Allergies Allergy Verified 04/26/20 20:01 [No Known Allergies*] Plan Patient has been examined and remains a candidate for the planned procedure
[2020-05-01 12:39] VITALS: BP 98/57; PULSE 58; RESP 16; TEMP 36.2; O2SAT 99
--- NOTE | 2020-05-01 12:40 | PM.OP ---
Brief Operative Note Date of procedure: 05/01/20 Pre-op diagnosis: rectal bleeding Post-op diagnosis: same (diverticulosis) Procedure: colonoscopy Surgeon: Antoni Gerardo Estimated blood loss (mL): 0 Pathology: none sent Condition: stable Disposition: PACU
[2020-05-01 12:57] VITALS: BP 142/76; PULSE 56; RESP 13; TEMP 36.2; O2SAT 97
--- NOTE | 2020-05-01 13:09 | OP_ITS ---
SURGEON: Antoni Gerardo MD INDICATIONS: Rectal bleeding. PREOPERATIVE DIAGNOSIS: POSTOPERATIVE DIAGNOSIS: PROCEDURE PERFORMED: ESTIMATED BLOOD LOSS: COMPLICATIONS: ANESTHESIA: Monitored anesthesia care. ASSISTANTS: SPECIMENS: PROCEDURE: Colonoscopy to the terminal ileum. DESCRIPTION OF PROCEDURE: History and physical performed. The risks and benefits of the procedure were explained to the patient. Informed consent was obtained. The patient was placed in the left lateral decubitus position. A digital rectal exam was performed and was found to be normal. The Olympus pediatric video colonoscope was introduced into the rectum and advanced to the cecum without difficulty. The cecum was identified by transillumination, palpation, and identification of ileocecal valve. Examination was performed. The scope was removed. He tolerated the procedure well and returned to recovery area in stable condition. FINDINGS: The terminal ileum was examined and appeared normal. The visualized colonic mucosa was within normal limits without evidence of masses or ulcers. No polyps were identified. Extensive diverticulosis was noted in the sigmoid with scattered diverticulosis throughout the remainder of the colon. There were pockets of solid and liquid stool limiting the sensitivity examination, particularly in the transverse colon and descending colon. These were washed and suctioned as best possible. No polyps were identified. Retroflexed examination showed internal hemorrhoids. IMPRESSION: 1. Diverticulosis. 2. No evidence of colonic polyps. 3. 5 year colon recall due to prior history of polyps. RECOMMENDATIONS: 1. Followup as needed. 2. The patient's recent hospitalization for rectal bleeding could have been secondary to either hemorrhoids or diverticular disease. MD AMY Humphreys/NOEL / [id number] MTDD
== END 2020-05-01 13:49 | disposition home or self-care (01) ==
PROVIDERS: PCP Internal Medicine; Visit Provider Internal Medicine Gastroenterology
PROC: 0DJD8ZZ Inspection of Lower Intestinal Tract, Via Natural or Artificial Opening Endoscopic (ICD-10-PCS; CPT 45378; principal; 2020-05-01 11:30)
DX: K62.5 Hemorrhage of anus and rectum (principal); Z86.010 Personal history of colon polyps; K57.30 Diverticulosis of large intestine without perforation or abscess without bleeding; K64.8 Other hemorrhoids; K21.9 Gastro-esophageal reflux disease without esophagitis; I10 Essential (primary) hypertension; E78.00 Pure hypercholesterolemia, unspecified; M19.90 Unspecified osteoarthritis, unspecified site; Z79.1 Long term (current) use of non-steroidal anti-inflammatories (NSAID); Z79.82 Long term (current) use of aspirin; Z79.899 Other long term (current) drug therapy; Z87.891 Personal history of nicotine dependence
CPT/HCPCS: G0105

== ENCOUNTER 2020-05-01 16:33 | Outpatient (REF) | payer MEDICARE, SELFPAY | END 2020-05-01 16:34 | disposition home or self-care (01) | LOC: HO.LAB 16:33 | PROVIDERS: Visit Provider Internal Medicine | DX: Z20.828 Contact with and (suspected) exposure to other viral communicable diseases (principal) | CPT/HCPCS: C9803; U0003 ==

== ENCOUNTER 2020-06-25 07:51 | Outpatient (REF) | payer MEDICARE, SELFPAY ==
[2020-06-25 08:56] LABS: MANUAL DIFF FLAG NO
[2020-06-25 09:07] LABS: Basophils Percent Auto 0.7 % (0-2); Eosinophils Absolute Auto 0.1 X10*3/uL (0.0-0.4); Eosinophils Percent Auto 2.6 % (0-4); Hematocrit 42.3 % (42-52); Hemoglobin 13.1 g/dl (14.0-18.0); Imm Gran Abs Auto 0.02 X10*3/uL (0.00-0.03); Imm Gran Pct Auto 0.4 % (0.0-0.4); Lymphocytes Absolute Auto 1.1 X10*3/uL (1.2-4.9); Lymphocytes Percent Auto 23.1 % (20-40); Mean Corpuscular Hemoglobin 26.9 pg (27.0-33.0); Mean Corpuscular Volume 86.9 fL (80-98); Mean Platelet Volume 12.7 fL (9.4-12.4); Monocytes Absolute Auto 0.4 X10*3/uL (0.1-1.2); Monocytes Percent Auto 9.7 % (2-11); Neutrophils Absolute Auto 2.9 X10*3/uL (2.0-8.3); Neutrophils Percent Auto 63.5 % (45-73); Platelet Count 215 X10*3/uL (160-400); Red Blood Count 4.87 X10*6/uL (4.60-5.80); Red Cell Distribution Width 12.8 % (11.0-16.0); White Blood Count 4.5 X10*3/uL (4.8-10.8)
[2020-06-25 09:41] LABS: Anion Gap 10 (12-20); Blood Urea Nitrogen 15 mg/dL (9-16); Calcium 9.4 mg/dL (8.4-10.2); Carbon Dioxide 30 mmol/L (22-29); Chloride 106 mmol/L (96-108); Cholesterol 191 mg/dL; Estimated Glomerular Filt Rate > 60; Glucose Fasting 89 mg/dL (60-99); HDL Cholesterol 50 mg/dL; LDL Cholesterol Calculated 122 mg/dl; Potassium 4.4 mmol/l (3.3-5.1); Sodium 142 mmol/L (135-145); Triglycerides 99 mg/dL
== END 2020-06-25 07:52 | disposition home or self-care (01) ==
LOC: HO.LAB 07:51
PROVIDERS: PCP Internal Medicine; Visit Provider Nurse Practitioner Family
DX: M79.89 Other specified soft tissue disorders (principal)
CPT/HCPCS: 36415; 80048; 80061; 85025

== ENCOUNTER 2020-08-29 13:29 | Outpatient (REF) | payer MEDICARE, SELFPAY | END 2020-08-29 13:30 | disposition home or self-care (01) | LOC: HO.LAB 13:29 | PROVIDERS: PCP Internal Medicine; Visit Provider Internal Medicine | DX: Z13.89 Encounter for screening for other disorder (principal) ==

== ENCOUNTER 2020-08-30 08:10 | Outpatient (REF) | payer MEDICARE, SELFPAY ==
[2020-08-30 08:36] LABS: MANUAL DIFF FLAG NO
[2020-08-30 08:41] LABS: Basophils Percent Auto 0.4 % (0-2); Eosinophils Absolute Auto 0.1 X10*3/uL (0.0-0.4); Eosinophils Percent Auto 2.6 % (0-4); Hematocrit 41.2 % (42-52); Hemoglobin 13.2 g/dl (14.0-18.0); Imm Gran Abs Auto 0.01 X10*3/uL (0.00-0.03); Imm Gran Pct Auto 0.2 % (0.0-0.4); Immature Retic Fraction 6.5 % (2.3-13.4); Lymphocytes Percent Auto 20.3 % (20-40); Mean Corpuscular Hemoglobin 26.7 pg (27.0-33.0); Mean Corpuscular Volume 83.4 fL (80-98); Monocytes Absolute Auto 0.4 X10*3/uL (0.1-1.2); Monocytes Percent Auto 8.5 % (2-11); Neutrophils Absolute Auto 3.4 X10*3/uL (2.0-8.3); Platelet Count 187 X10*3/uL (160-400); Red Blood Count 4.94 X10*6/uL (4.60-5.80); Red Cell Distribution Width 14.6 % (11.0-16.0); Reticulocyte Percent 1.1 % (0.5-1.8); Reticulocytes Absolute 0.053 X10*6/uL (0.026-0.095)
[2020-08-30 09:09] LABS: Alanine Aminotransferase 15 U/L (0-40); Albumin Level 4.1 g/dL (3.5-5.0); Alkaline Phosphatase 86 U/L (39-117); Anion Gap 11 (12-20); Aspartate Amino Transferase 18 U/L (5-37); Bilirubin Total 0.6 mg/dL (0.0-1.0); Blood Urea Nitrogen 15 mg/dL (9-16); Calcium 8.9 mg/dL (8.4-10.2); Carbon Dioxide 26 mmol/L (22-29); Chloride 108 mmol/L (96-108); Cholesterol 191 mg/dL; Estimated Glomerular Filt Rate > 60; Glucose Random 92 mg/dL (60-115); HDL Cholesterol 46 mg/dL; Iron 95 mcg/dL (45-160); LDL Cholesterol Calculated 133 mg/dl; Percent Iron Saturation 33 % (15-50); Potassium 4.4 mmol/L (3.3-5.1); Sodium 141 mmol/L (135-145); Total Iron Binding Capacity 290 mcg/dL (228-428); Total Protein 6.9 g/dL (6.5-8.0); Triglycerides 64 mg/dL; Unsaturated Iron Binding 195 ug/dL
[2020-08-30 09:23] LABS: HBS Num1 0.72 mIU/mL (0-7.99); HBc Num1 0.08 S/CO (0.00-0.79); Hepatitis B Core Antibody Nonreactive (Nonreactive); ~Hepatitis B Surface Antibody NONREACTIVE (Nonreactive)
[2020-08-30 09:27] LABS: HBsAGNum1 0.18 S/CO (0.00-0.99); Hepatitis B Surface Antigen Negative (Negative); ~HepC Num1 0.13 S/CO (0.00-0.79); ~Hepatitis C Antibody Nonreactive (Nonreactive)
[2020-08-30 09:32] LABS: Ferritin 35 ng/mL (20-250); Free T4 (Free Thyroxine) 0.85 ng/dL (0.71-1.85); Prostate Specific Antigen Scr 0.29 ng/mL (<0.05-4.0); Thyroid Stimulating Hormone 1.05 uIU/mL (0.32-4.0)
[2020-08-31 18:37] LABS: Vitamin B12 290 pg/mL (200-900)
== END 2020-08-30 08:11 | disposition home or self-care (01) ==
LOC: HO.LAB 08:10
PROVIDERS: PCP Internal Medicine; Visit Provider Internal Medicine
DX: E78.00 Pure hypercholesterolemia, unspecified (principal); I10 Essential (primary) hypertension; K62.5 Hemorrhage of anus and rectum
CPT/HCPCS: 36415; 80053; 80061; 82607; 82728; 82746; 83540; 84153; 84439; 84443; 85025; 85045; 86704; 86706; 86803; 87340

== ENCOUNTER 2021-06-26 15:13 | Emergency (ER) | payer MEDICARE, SELFPAY ==
[2021-06-26 16:49] VITALS: BP 161/80; BP 178/80; PULSE 64; RESP 18; TEMP 36.6; O2SAT 98; BMI 33.1
[2021-06-26 22:56] VITALS: BP 178/79; PULSE 62; RESP 17; TEMP 36.8; O2SAT 97
[2021-06-26 23:18] LABS: MANUAL DIFF FLAG NO
[2021-06-26 23:20] LABS: Basophils Percent Auto 0.1 % (0-2); Eosinophils Percent Auto 0.4 % (0-4); Hematocrit 41.7 % (42.0-52.0); Hemoglobin 13.5 g/dl (14.0-18.0); Imm Gran Abs Auto 0.03 X10*3/uL (0.00-0.03); Imm Gran Pct Auto 0.4 % (0.0-0.4); Lymphocytes Absolute Auto 1.1 X10*3/uL (1.2-4.9); Lymphocytes Percent Auto 15.3 % (20-40); Mean Corpuscular HGB Conc 32.4 g/dl (31.0-36.0); Mean Corpuscular Volume 86.5 fL (80.0-98.0); Mean Platelet Volume 11.7 fL (9.4-12.4); Monocytes Absolute Auto 0.6 X10*3/uL (0.1-1.2); Monocytes Percent Auto 7.9 % (2-11); Neutrophils Absolute Auto 5.6 x10*3/uL (2.0-8.3); Neutrophils Percent Auto 75.9 % (45-73); Platelet Count 179 X10*3/uL (160-400); Red Blood Count 4.82 X10*6/uL (4.60-5.80); Red Cell Distribution Width 13.2 % (11.0-16.0); White Blood Count 7.4 X10*3/uL (4.8-10.8)
--- NOTE | 2021-06-26 23:21 | ED.FALL ---
HPI - Fall General Chief Complaint: Fall Stated Complaint: slipped on ice, back pain Time Seen by Provider: 06/26/21 23:21 Source: patient Mode of arrival: EMS History of Present Illness HPI Narrative: 65-year-old male who is brought in by EMS after he fell on the ice earlier this morning and states that he hit his in mid back but denies hitting his head or loss of consciousness and denies using any blood thinners. He states that throughout the day he has not taken anything except his prescribed tramadol but that has not helped. He otherwise denies any bowel or bladder dysfunction and denies any pain/numbness/tingling into either lower extremity. Related Data Home Medications Medication Instructions Recorded Confirmed fluticasone propionate 50 2 spray INTRANASAL DAILY 04/04/20 02/04/21 mcg/actuation nasal spray,suspension Tylenol Arthritis 650 mg PO Q8-10H PRN 04/26/20 02/04/21 Previous Rx's Medication Instructions Recorded furosemide 20 mg tablet 20 mg PO Q OTHER DAY #15 cap 07/19/20 magnesium oxide 400 mg (241.3 mg 400 mg PO DAILY #30 cap 07/19/20 magnesium) tablet fexofenadine 180 mg tablet 180 mg PO DAILY #90 tab 10/08/20 (Janay Allergy) metronidazole 1 % topical gel See Rx Instructions TOPICAL DAILY 10/08/20 (Metrogel) #60 g triamcinolone acetonide 0.5 % 1 appl TOPICAL BID 14 Days #15 g 10/08/20 topical cream omeprazole 20 mg capsule,delayed 20 mg PO DAILY 90 Days #90 cap 01/10/21 release lisinopril 20 mg tablet 20 mg PO DAILY 90 Days #90 tab 02/04/21 tramadol 50 mg tablet 50 mg PO QID PRN 30 Days #110 tab 06/12/21 ketorolac 10 mg tablet 10 mg PO Q6H PRN 5 Days #20 tab 06/27/21 Allergies Allergy/AdvReac Type Severity Reaction Status Date / Time No Known Allergies Allergy Verified 06/26/21 16:49 [No Known Allergies*] Review of Systems Review of Systems: Pertinent positives and negatives as stated in HPI and 10 point review of systems is otherwise negative. [facility] Past Medical History Source: nursing notes reviewed Medical History Alcohol abuse GERD (gastroesophageal reflux disease) Hypercholesterolemia Hypertension Obesity (BMI 30-39.9) Osteoarthritis Swelling of right lower extremity Tubular adenoma of colon Surgical History History of tonsillectomy Lipoma Family History Family History Father CVD (cardiovascular disease) Stroke Mother No problems noted. Paternal Aunt Myocardial infarction Paternal Uncle Myocardial infarction Brother No problems noted. Sister No problems noted. Daughter No problems noted. Social History Social History Household Members: Significant Other Housing: Apartment Alcohol intake: never Patient Tobacco Use Status: Former Tobacco user Tobacco use type: Cigarette e-Cigarette/Vaping Use: Never Used Second Hand Smoke Exposure: No Advance Directives: No Advance Directives Information Provided: No service: No Current occupational status: retired Physical Exam Vital Signs: Vital Signs: Last Vital Signs Temp 98.2 F 06/26/21 22:56 Pulse 54 06/27/21 00:05 Resp 16 06/27/21 00:05 BP 138/71 06/27/21 00:05 Pulse Ox 97 06/27/21 00:05 BMI result Body Mass Index 33.1 VITAL SIGNS: Reviewed. GENERAL: Well developed, well nourished, in no acute distress. HEAD: Normocephalic/atraumatic EYES: PERRLA, EOMI OROPHARYNX: no oral lesions noted, posterior pharynx clear NECK: Supple, no adenopathy LUNGS: Normal breath sounds. No adventitious sounds or accessory muscle use. SpO2<97> CARDIOVASCULAR: Regular rate and rhythm without noted murmurs ABDOMEN: Soft, non-tender, non-distended with bowel sounds. PELVIS: Stable and nontender BACK: There are no midline vertebral step-offs or tenderness on palpation, but there is noted tenderness to palpation at the right paraspinal area at approximately L1/T12 without any noted ecchymosis. MUSCULOSKELETAL: No tenderness, deformities, or effusions noted on gross inspection. EXTREMITIES: No cyanosis, clubbing or edema. SKIN: Inspection of the skin reveals no rashes NEUROLOGIC: Alert and oriented x 4. Strength and sensation to light touch were grossly intact x 4. Course Course Course Narrative: This is a 65-year-old male with history and clinical presentation consistent with contusion to his right back and no evidence to suggest vertebral fracture or pelvic abnormality. Patient received combination analgesics as well as lidocaine patch in on re-evaluation states that he has had significant improvement in his pain and is otherwise discharged home in stable condition. MDM - Fall Lab Data Result diagrams: 06/26/21 23:12 06/26/21 23:12 Labs: Lab Results 06/26/21 06/26/21 06/26/21 Range/Units 23:12 23:12 23:12 WBC 7.4 (4.8-10.8) X10*3/uL RBC 4.82 (4.60-5.80) X10*6/uL Hgb 13.5 L (14.0-18.0) g/dl Hct 41.7 L (42.0-52.0) % MCV 86.5 (80.0-98.0) fL MCH 28.0 (27.0-33.0) pg MCHC 32.4 (31.0-36.0) g/dl RDW 13.2 (11.0-16.0) % Plt Count 179 (160-400) X10*3/uL MPV 11.7 (9.4-12.4) fL Immature Gran % (Auto) 0.4 (0.0-0.4) % Neut % (Auto) 75.9 H (45-73) % Lymph % (Auto) 15.3 L (20-40) % [place] % (Auto) 7.9 (2-11) % Eos % (Auto) 0.4 (0-4) % Baso % (Auto) 0.1 (0-2) % Lymph # (Auto) 1.1 L (1.2-4.9) X10*3/uL [place] # (Auto) 0.6 (0.1-1.2) X10*3/uL Eos # (Auto) 0.0 (0.0-0.4) X10*3/uL Baso # (Auto) 0.0 (0.0-0.2) X10*3/uL Abs Immat Gran (auto) 0.03 (0.00-0.03) X10*3/uL Absolute Neuts (auto) 5.6 (2.0-8.3) x10*3/uL Absolute Nucleated RBC 0.000 (0.0-0.012) X10*3/uL Nucleated RBC % (auto) 0.0 (0.0-0.2) /100WBC Sodium 139 (135-145) mmol/L Potassium 3.8 (3.3-5.1) mmol/L Chloride 110 H (96-108) mmol/L Carbon Dioxide 23 (22-29) mmol/L Anion Gap 10 L (12-20) BUN 12 (9-16) mg/dL Creatinine 0.72 (0.5-1.4) mg/dL Estim Creat Clear Calc 99.3 Estimated GFR > 60 Random Glucose 95 (60-115) mg/dL Calcium 9.2 (8.4-10.2) mg/dL Total Bilirubin 0.6 (0.0-1.0) mg/dL AST 23 (5-37) U/L ALT 21 (0-40) U/L Alkaline Phosphatase 78 (39-117) U/L Total Protein 7.0 (6.5-8.0) g/dL Albumin 4.0 (3.5-5.0) g/dL Urine Color YELLOW Urine Appearance CLEAR Urine pH 6.0 (5.0-8.0) Ur Specific [place] >= 1.030 H (1.005-1.025) Urine Protein TRACE (NEG-TRACE) MG/DL Urine Glucose (UA) NEG (NEG) MG/DL Urine Ketones 15 (NEG) MG/DL Urine Blood 1+ H (NEG) Urine Nitrite NEG (NEG) Ur Leukocyte Esterase NEG (NEG) Urine RBC 10-14 H (0) /HPF Urine WBC 0-2 (0-4) /HPF Ur Squamous Epith Cells TRACE /LPF Urine Bacteria NONE /LPF Urine Mucus 4+ /LPF Discharge Plan Discharge Clinical Impression: Back contusion Patient Disposition: Home, Self-Care Instructions: Back Pain (ED) Additional Instructions: 1. Tylenol 1000 mg, orally, every 6 hours as needed for pain control. Do not exceed 4000 mg within 24 hours. 2. Lidocaine patch, this is available [id number] and should be apply to area pain as directed on the outside packaging. 3. Follow-up with your primary care provider in the morning by setting up an appointment for re-evaluation. Return to the ER for worsening symptoms. Prescriptions: New ketorolac 10 mg tablet 10 mg PO Q6H PRN (Reason: pain) 5 Days Qty: 20 RF: 0 No Action furosemide 20 mg tablet 20 mg PO Q OTHER DAY Qty: 15 RF: 2 magnesium oxide 400 mg (241.3 mg magnesium) tablet 400 mg PO DAILY Qty: 30 RF: 2 omeprazole 20 mg capsule,delayed release(DR/EC) 20 mg PO DAILY 90 Days Qty: 90 RF: 2 tramadol 50 mg tablet 50 mg PO QID PRN (Reason: pain) 30 Days Qty: 110 RF: 1 Tylenol Arthritis 650 mg PO Q8-10H PRN (Reason: Pain) RF: 0 fluticasone propionate 50 mcg/actuation spray,suspension 2 spray intranasal DAILY RF: 0 fexofenadine [Janay Allergy] 180 mg tablet 180 mg PO DAILY Qty: 90 RF: 3 triamcinolone acetonide 0.5 % cream 1 appl topical BID 14 Days Qty: 15 RF: 0 metronidazole [Metrogel] 1 % gel See Rx Instructions topical DAILY Qty: 60 RF: 3 lisinopril 20 mg tablet 20 mg PO DAILY 90 Days Qty: 90 RF: 2
[2021-06-26 23:24] LABS: Appearance Urine CLEAR; Color Urine YELLOW; Glucose Urine UA NEG (NEG); Leukocyte Esterase Urine NEG (NEG); Nitrite Urine NEG (NEG); Specific Gravity - Urine >= 1.030 (1.005-1.025); Urine Blood 1+ (NEG); Urine Ketones 15 MG/DL (NEG); Urine Protein TRACE MG/DL (NEG-TRACE)
[2021-06-26 23:34] LABS: Alanine Aminotransferase 21 U/L (0-40); Alkaline Phosphatase 78 U/L (39-117); Anion Gap 10 (12-20); Aspartate Amino Transferase 23 U/L (5-37); Bilirubin Total 0.6 mg/dL (0.0-1.0); Blood Urea Nitrogen 12 mg/dL (9-16); Calcium 9.2 mg/dL (8.4-10.2); Carbon Dioxide 23 mmol/L (22-29); Chloride 110 mmol/L (96-108); Creatinine Clr Calc Pharmacy 99.3; Estimated Glomerular Filt Rate > 60; Glucose Random 95 mg/dL (60-115); Potassium 3.8 mmol/L (3.3-5.1); Sodium 139 mmol/L (135-145)
[2021-06-26] MEDS: Ketorolac Tromethamine 30 MG/ML VIAL 15 MG IM (23:34)
[2021-06-26] MEDS: Acetaminophen 325 MG TABLET 975 MG PO (23:34)
[2021-06-26] MEDS: Lidocaine 4 % Patch ADH..PATCH 1 PATCH TRANSDERMA (23:35)
[2021-06-26 23:37] LABS: Mucus Urine 4+ /LPF; Squamous Epithelial Cell Urine TRACE /LPF; WBC Urine 0-2 /HPF (0-4)
[2021-06-27 00:05] VITALS: BP 138/71; PULSE 54; RESP 16; O2SAT 97
[2021-06-27 01:31] VITALS: BP 121/75; PULSE 57; RESP 16; O2SAT 97
== END 2021-06-27 01:45 | disposition home or self-care (01) ==
PROVIDERS: Emergency Provider Student in an Organized Health Care Education/Training Program
DX: S30.0XXA Contusion of lower back and pelvis, initial encounter (principal); W00.0XXA Fall on same level due to ice and snow, initial encounter; Y93.01 Activity, walking, marching and hiking; Y92.410 Unspecified street and highway as the place of occurrence of the external cause; Y99.9 Unspecified external cause status
CPT/HCPCS: 36415; 80053; 81001; 85025; 96372; 99284; J1885

== ENCOUNTER 2021-07-05 11:54 | Outpatient (REF) | payer MEDICARE, SELFPAY ==
[2021-07-05 13:26] LABS: Binax Internal Control QC Valid; Binax Lot number: 9864; Binax Now Covid-19 Ag Negative (Negative)
== END 2021-07-05 11:55 | disposition home or self-care (01) ==
LOC: HO.LAB 11:54
PROVIDERS: Visit Provider Internal Medicine
DX: Z20.822 Contact with and (suspected) exposure to COVID-19 (principal)
CPT/HCPCS: C9803

== ENCOUNTER 2022-01-04 07:21 | Outpatient (REF) | payer MEDICARE, SELFPAY ==
--- NOTE | ~2022-01-04 | XR_ITS ---
EXAMINATION: XR HAND, BILATERAL. XR ANKLE, BILATERAL. CLINICAL INFORMATION: Osteoarthritis COMPARISON: Hand radiographs 05/06/2012 TECHNIQUE: 3 views of each hand. 3 views of each ankle. FINDINGS: Right hand: Severe osteoarthritis of the triscaphoid, 1st CMC and an CT joints. Moderate-severe osteoarthritis of the 3rd MCP joint and moderate osteoarthritis of the remainder of the MCP joints. Mild to moderate degenerative changes throughout the interphalangeal joints. No periarticular osteopenia or erosions. No suspicious soft tissue calcifications. No acute abnormality. Left hand: Severe osteoarthritis of the triscaphoid, 1st CMC, and 1st MCP joints. There are also marked degenerative changes at the junction of the distal ulna and lunate with ulnar positive variance. Severe osteoarthritis of the 3rd MCP joint and moderate osteoarthritis throughout the remainder of the MCP joints. There is mild to moderate osteoarthritis of the interphalangeal joints with no periarticular osteopenia, erosions, or suspicious soft tissue calcifications. No acute abnormality. Right ankle: Ankle mortise is preserved. Probable remote, healed fracture of the posterior malleolus, and ossification along the tibiofibular ligament likely due to a remote high ankle sprain. There are mild degenerative changes of the tibiotalar joint. No acute abnormality. Moderate-severe arthritic changes of the TMT joints, partially imaged. Left ankle: Ankle mortise is preserved. Minimal degenerative changes of the talocrural joint. Small heel spur. Moderate-severe arthritic changes of the TMT joints, partially imaged. XR/XR ankle RT min 3V IMPRESSION: No evidence of an active inflammatory arthropathy. There are advanced degenerative changes of both hands as detailed in the comments. Mild degenerative changes of the both ankles, with moderate-severe arthritic changes of the TMT joints. Left greater than right heel spur. Evidence of a remote right ankle injury.
[2022-01-04 07:43] LABS: MANUAL DIFF FLAG NO
[2022-01-04 08:25] LABS: Basophils Percent Auto 0.6 % (0-2); Eosinophils Absolute Auto 0.2 X10*3/uL (0.0-0.4); Eosinophils Percent Auto 3.5 % (0-4); Hematocrit 41.5 % (42.0-52.0); Hemoglobin 13.4 g/dl (14.0-18.0); Imm Gran Abs Auto 0.02 X10*3/uL (0.00-0.03); Imm Gran Pct Auto 0.4 % (0.0-0.4); Mean Corpuscular HGB Conc 32.3 g/dl (31.0-36.0); Mean Corpuscular Volume 86.8 fL (80.0-98.0); Mean Platelet Volume 11.9 fL (9.4-12.4); Monocytes Absolute Auto 0.5 X10*3/uL (0.1-1.2); Monocytes Percent Auto 9.6 % (2-11); Neutrophils Absolute Auto 3.1 x10*3/uL (2.0-8.3); Neutrophils Percent Auto 64.9 % (45-73); Platelet Count 184 X10*3/uL (160-400); Red Blood Count 4.78 X10*6/uL (4.60-5.80); Red Cell Distribution Width 13.8 % (11.0-16.0); White Blood Count 4.8 X10*3/uL (4.8-10.8)
[2022-01-04 09:03] LABS: Alanine Aminotransferase 11 U/L (0-40); Albumin Level 4.2 g/dL (3.5-5.0); Alkaline Phosphatase 87 U/L (39-117); Anion Gap 9 (12-20); Aspartate Amino Transferase 17 U/L (5-37); Bilirubin Total 0.3 mg/dL (0.0-1.0); Blood Urea Nitrogen 18 mg/dL (9-16); Calcium 8.7 mg/dL (8.4-10.2); Carbon Dioxide 25 mmol/L (22-29); Chloride 109 mmol/L (96-108); Cholesterol 191 mg/dL; Estimated Glomerular Filt Rate > 60; Glucose Random 96 mg/dL (60-115); HDL Cholesterol 51 mg/dL; LDL Cholesterol Calculated 126 mg/dl; Potassium 4.4 mmol/L (3.3-5.1); Sodium 139 mmol/L (135-145); Total Protein 6.9 g/dL (6.5-8.0); Triglycerides 71 mg/dL
[2022-01-04 09:23] LABS: Free T4 (Free Thyroxine) 0.89 ng/dL (0.71-1.85); Thyroid Stimulating Hormone 0.55 uIU/mL (0.32-4.0)
[2022-01-06 08:10] LABS: Folate 11.6 ng/mL (> or = 4.0); Vitamin B12 310 pg/mL (200-900)
== END 2022-01-04 07:22 | disposition home or self-care (01) ==
LOC: HO.LAB 07:21
PROVIDERS: PCP Internal Medicine; Visit Provider Internal Medicine
DX: Z12.5 Encounter for screening for malignant neoplasm of prostate (principal); I10 Essential (primary) hypertension; E78.00 Pure hypercholesterolemia, unspecified; M15.9 Polyosteoarthritis, unspecified
CPT/HCPCS: 36415; 73130; 73610; 80053; 80061; 82607; 82746; 84153; 84439; 84443; 85025

== ENCOUNTER → 2022-01-22 08:28 | Outpatient (BNVA) | payer MEDICARE, SELFPAY | PROVIDERS: PCP Internal Medicine; Visit Provider Internal Medicine Rheumatology | DX: M15.9 Polyosteoarthritis, unspecified (principal); M79.671 Pain in right foot; M79.672 Pain in left foot; M25.50 Pain in unspecified joint; R31.29 Other microscopic hematuria; Z79.899 Other long term (current) drug therapy | CPT/HCPCS: 99202 ==

== ENCOUNTER 2022-03-18 08:42 | Outpatient (REF) | payer MEDICARE, SELFPAY ==
[2022-03-18 10:21] LABS: Alanine Aminotransferase 18 U/L (0-40); Alkaline Phosphatase 88 U/L (39-117); Anion Gap 15 (12-20); Aspartate Amino Transferase 20 U/L (5-37); Bilirubin Total 0.4 mg/dL (0.0-1.0); Blood Urea Nitrogen 14 mg/dL (9-16); Calcium 9.2 mg/dL (8.4-10.2); Carbon Dioxide 24 mmol/L (22-29); Chloride 107 mmol/L (96-108); Estimated Glomerular Filt Rate > 60; Glucose Random 167 mg/dL (60-115); Potassium 3.5 mmol/L (3.3-5.1); Sodium 142 mmol/L (135-145); Total Protein 6.8 g/dL (6.5-8.0)
[2022-03-18 14:30] LABS: Appearance Urine Clear; Color Urine Dark Yellow; Glucose Urine UA 500 mg/dL (Negative); Leukocyte Esterase Urine Negative (Negative); Nitrite Urine Negative (Negative); PH 5.5 (5.0-9.0); Specific Gravity - Urine >= 1.030 (1.005-1.025); UMIC TRIGGER UA YES; Urine Blood Trace (Negative); Urine Ketones Trace mg/dL (Negative); Urine Protein Trace mg/dL (Neg-Trace)
[2022-03-18 14:33] LABS: Bacteria Urine None Seen (None Seen); Hyaline Casts Urine 0-2 /LPF (0-2); Squamous Epithelial Cell Urine 0-2 /HPF (0-2); WBC Urine 0-5 /HPF (0-5)
== END 2022-03-18 08:43 | disposition home or self-care (01) ==
LOC: HO.LAB 08:42
PROVIDERS: Internal Medicine Rheumatology; PCP Internal Medicine; Visit Provider Internal Medicine
DX: M15.9 Polyosteoarthritis, unspecified (principal); R31.29 Other microscopic hematuria; E78.00 Pure hypercholesterolemia, unspecified
CPT/HCPCS: 36415; 80053; 81001

== ENCOUNTER 2022-04-10 14:13 | Outpatient (REF) | payer MEDICARE, SELFPAY ==
--- NOTE | ~2022-04-10 | CT_ITS ---
EXAMINATION: CT ABDOMEN AND PELVIS WITHOUT CONTRAST CLINICAL INFORMATION: Hematuria COMPARISON: Previous CT of the abdomen and pelvis March 2020 TECHNIQUE: Multidetector volumetric imaging was performed from the superior aspect of the liver through the pubic symphysis. Sagittal and coronal reformatted images were obtained on the technologist's workstation. This CT examination was performed using dose optimization techniques as appropriate, variously including the following: *Automated exposure control *Adjustment of mA and/or kV according to patient size (this includes techniques or standardized protocols for targeted exams where dose is matched to indication/reason for exam; i.e. extremities or head) *Use of iterative reconstruction technique DLP: 354 mGy-cm FINDINGS: LUNG BASES: The visualized lung bases are unremarkable. LIVER, GALLBLADDER, AND BILIARY TREE: The liver is normal in size, shape, and attenuation. No focal hepatic lesion or biliary ductal dilatation is present. The gallbladder is unremarkable with no evidence of radiopaque gallstones, gallbladder wall thickening, or obvious pericholecystic inflammatory changes. PANCREAS: Unremarkable. SPLEEN: Unremarkable. ADRENAL GLANDS: Unremarkable. KIDNEYS AND URETERS: The kidneys are normal in size, shape, and attenuation. No hydronephrosis, hydroureter, or calculi seen. No perinephric stranding. BLADDER: Bladder is not optimally well-distended. No stone or mass is appreciated. There is question of mild stranding of the perivesicular fat. GASTROINTESTINAL TRACT: Severe diverticulosis of the colon. No evidence of diverticulitis. The small and large bowel are otherwise unremarkable. The appendix is unremarkable. ABDOMINAL WALL: Right inguinal and umbilical hernias containing fat. LYMPH NODES: Normal. VASCULAR: Unremarkable. PELVIC VISCERA: Unremarkable. OSSEOUS STRUCTURES: No stone or hydronephrosis seen. Bladder not optimally distended. Question mild stranding of the perivesicular fat. Degenerative changes of the spine. Mild 4 mm anterior subluxation of L4 with respect L5. Mild to moderate T11 vertebral body compression fracture of uncertain age. CT/CT abdomen pelvis wo IV con IMPRESSION: Normal-appearing kidneys. Question mild fat stranding of the perivesicular fat. Bladder otherwise unremarkable. Severe diverticulosis of the colon. Mild to moderate T11 vertebral body compression fracture of uncertain age. Fleischner guidelines were followed.
== END 2022-04-10 14:14 | disposition home or self-care (01) ==
LOC: HO.CT 14:13
PROVIDERS: PCP Internal Medicine; Visit Provider Internal Medicine
DX: R31.9 Hematuria, unspecified (principal)
CPT/HCPCS: 74176

== ENCOUNTER 2022-08-07 07:36 | Outpatient (RCR) | payer MEDICARE, SELFPAY ==
--- NOTE | 2022-08-07 08:52 | MHC.PT.EP ---
[facility] [place] [facility] [place] Office [place] Office [address] Leslie Estrada [address] [phone] F: [phone] F: [phone] F: [phone] F: [phone] Physical Therapy Plan of Care Date of Evaluation: Date of Surgery: Diagnosis: pain in R shoulder Assessment: R66 y/o male referred to PT with R shoulder pain. 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 Educated pt on muscle strain and tendinopathy with maintaining ROM and gradually adding strength. Recommend 2x/week for 5 weeks to address impairments, implement HEP, and optimize functional mobility. Pt is concerned regarding insurance co-pay and possible bill therefore he would like to call insurance to clarify cost prior to booking any appointments. Will keep chart open for 30 days and if do not hear back from pt, will d/c chart; pt in agreement Frequency and Duration: The patient will be seen 2x/week for 5 weeks Short Term Goals: 3 weeks COmpliant with HEP Pt will report no pain with lowering from overhead Halfway Goals: 5 weeks I with HEP and self management of sx Pt will be able to lift 3# into overhead cabinet with pain < 3/10 Treatment Plan: Modalities to reduce pain, spasms and effusion. Manual therapy to restore motion and function. Therapeutic exercise to improve strength and flexibility. Neuromuscular re-education for posture and balance. Therapeutic activities to return to functional activities of daily living. Electronically signed by: Quin Edgar. PT Please sign and return to therapist. Thank you for your referral.
--- NOTE | 2022-09-08 14:47 | MHC.PT.DC ---
[facility] [place] Office [place] Office [place] Office [address] Leslie Estrada [address] [phone] F: [phone] F: [phone] F: [phone] F: [phone] Physical Therapy Discharge Report Diagnosis: pain in R shoulder Date of Surgery: Date of Evaluation: 08/07/22 Date of Discharge: 09/08/22 Treatments to Date: 1 Cancellations to Date: 0 No Shows to Date: 0 Discharge Status: Independent with HEP Patient Elected to Stop Discharge Summary: Pt did not f/u with further visits after initial evaluation. At time of evaluation, he expressed concerned regarding insurance co-pay and possible bill therefore he would like to call insurance to clarify cost prior to booking any appointments. Kept chart open for 30 days and did not hear back from pt, therefore will d/c chart. Distributed extensive HEP and discussed how to progressive band resistance Electronically signed by: Quin Edgar PT Please sign and return to therapist. Thank you for your referral.
== END 2022-09-08 14:47 | disposition home or self-care (01) ==
LOC: HO.PT 07:36
PROVIDERS: PCP Internal Medicine; Visit Provider Internal Medicine
DX: M25.511 Pain in right shoulder (principal)
CPT/HCPCS: 97110; 97161

== ENCOUNTER 2022-08-21 13:05 | Outpatient (REF) | payer MEDICARE, SELFPAY ==
[2022-08-21 16:36] LABS: Urine Cytology See Pathology rpt
== END 2022-08-21 13:06 | disposition home or self-care (01) ==
LOC: HO.LAB 13:05
PROVIDERS: PCP Internal Medicine; Visit Provider Nurse Practitioner Family
DX: R31.29 Other microscopic hematuria (principal)
CPT/HCPCS: 88112; 99202

== ENCOUNTER 2022-09-12 08:54 | Outpatient (REF) | payer MEDICARE, SELFPAY ==
[2022-09-12 16:53] LABS: Urine Cytology See Pathology rpt
== END 2022-09-12 08:55 | disposition home or self-care (01) ==
LOC: HO.LNP 08:54
PROVIDERS: PCP Internal Medicine; Visit Provider Urology
DX: R39.12 Poor urinary stream (principal); R31.29 Other microscopic hematuria
CPT/HCPCS: 52000; 88112; 99212

== ENCOUNTER → 2022-11-12 08:36 | Outpatient (BNVA) | payer MEDICARE, SELFPAY | PROVIDERS: PCP Internal Medicine; Visit Provider Nurse Practitioner Family | DX: R39.12 Poor urinary stream (principal); R31.29 Other microscopic hematuria | CPT/HCPCS: 51798; 99212 ==

== ENCOUNTER 2023-02-16 07:20 | Outpatient (AMB) | payer MEDICARE, SELFPAY ==
--- NOTE | 2023-02-16 07:22 | A.OFFPC_ITS ---
Intake Visit Reasons: Shoulder pain Allergies No Known Allergies [No Known Allergies*] Allergy (Verified 02/16/23 07:35) Medication List - Last Reconciled 02/16/23 by ARJUN Byrnes fexofenadine (Janay Allergy) 180 mg PO DAILY lisinopril 20 mg PO DAILY 90 days meloxicam 15 mg PO DAILY metronidazole 1% (Metrogel) 1 application topical daily; omeprazole 20 mg PO DAILY 90 days tamsulosin (Flomax) 0.4 mg PO BEDTIME 90 days tramadol 50 mg PO QID PRN 30 days triamcinolone acetonide 0.5% 1 appl topical BID 14 days [Tylenol Arthritis 650 mg PO Q8-10H PRN] Tobacco use date assessed: 07/16/22 Fall risk assessment: No Falls in past year Last assessed Fall Risk: 02/16/23 Dental Screening Dental Screen Date: 02/16/23 Did you have a dental visit in the last 12 months?: No Did you have a dental problem in the last 6 months where you did not have access to dental care?: No Was dental information given to patient?: No HPI Chronic Fatigue and Pain History of Present Illness Current symptoms Reports arthralgias (right shoulder pain ); Denies cough HPI Comments History of Present Illness Details 67-year-old male past medical history significant for BPH, hypertension, hypercholesteremia, GERD, osteoarthritis and right shoulder tendinitis. Patient last seen in November. Patient presents today for a telehealth appointment for shoulder pain for months and its progressively getting worse. difficulty raising hand over arm to tie his hair up. Patient takes meloxicam and tramadol with some relief. Patient requesting an x-ray. Reports was doing home physical therapy stretches with no improvement. [facility] Medical History (Updated 11/28/22 @ 14:47 by Jennifer Downing MD) Alcohol abuse Diverticulosis GERD (gastroesophageal reflux disease) Hypercholesterolemia Hypertension Obesity (BMI 30-39.9) Osteoarthritis Overweight (BMI 25.0-29.9) Swelling of right lower extremity Tubular adenoma of colon Surgical History History of tonsillectomy Lipoma Family History Father CVD (cardiovascular disease) Stroke Mother No problems noted. Paternal Aunt Myocardial infarction Paternal Uncle Myocardial infarction Brother No problems noted. Sister No problems noted. Daughter No problems noted. Social History Household Members: Significant Other Housing: Apartment Alcohol intake: never Patient Tobacco Use Status: Former Tobacco user Tobacco use type: Cigarette e-Cigarette/Vaping Use: Never Used Second Hand Smoke Exposure: No service: No Current occupational status: retired Cognitive needs: No Hearing needs: No Vision needs: Yes (glasses) Questionnaire PHQ-9 Over the last 2 weeks, how often have you been bothered by any of the following problems? 1. Little interest or pleasure in doing things: not at all 2. Feeling down, depressed, or hopeless: not at all 3. Trouble falling or staying asleep, or sleeping too much: not at all 4. Feeling tired or having little energy: not at all 5. Poor appetite or overeating: not at all 6. Feeling bad about yourself - or that you are a failure or have let yourself or your family down: not at all 7. Trouble concentrating on things, such as reading the newspaper or watching television: not at all 8. Moving or speaking so slowly that other people could have noticed. Or the opposite - being so fidgety or restless that you have been moving around a lot more than usual: not at all 9. Thoughts that you would be better off or of hurting yourself in some way: not at all Total score: 0 Depression Screening Interpretation: Negative Source: Developed by Drs. Mazin Puri, Khadar Coombs and colleagues, with an educational nayana from [employer]. Thrive Questionnaire Date Thrive assessed: 07/16/22 AUDIT C Alcohol Use Questionnaire (AUDIT-C) 1. How often do you have a drink containing alcohol?: Never Total Score: 0 LUIS M-7 AMB Questionnaire LUIS M-7 Date LUIS M - 7 assessed: 07/16/22 Source: Developed by Drs. Mazin Puri, Khadar Coombs and colleagues, with an educational nayana from [employer]. Review of Systems Card Denies chest pain, Denies syncope, Denies rapid heart rate and Denies dyspnea Resp Denies cough and Denies dyspnea Musc Details: Pain with ROM, difficulty lifting arm over head. Reports arthralgias (right shoulder pain ), Denies numbness and Denies tingling Neuro Denies confusion, Denies syncope, Denies numbness and Denies tingling Psych Denies confusion Physical exam (Primary Care) Tobacco/Smoking Status: Tobacco use Status Tobacco use date assessed 07/16/22 02/16/23 07:23 Patient Tobacco Use Status Former Tobacco user 02/16/23 07:23 Tobacco use type Cigarette 02/16/23 07:23 e-Cigarette/Vaping Use Never Used 02/16/23 07:23 PHQ-9: PHQ-9 Score PHQ-9: Total score 0 02/16/23 07:23 Depression Screening Interpretation: Negative Thrive Assessment: Date of Thrive Assessment Date Thrive assessed 07/16/22 02/16/23 07:23 Const General: No confusion Orientation/consciousness: No confusion Neuro General: No confusion Telehealth Telehealth Location of provider rendering services: practice address Location of patient: address on file Patient Identification confirmed using: Name, : Yes Telehealth method: video (Iphone) Patient verbally consented to treatment: Yes Patient verbally consented to billing insurance company: Yes Patient informed of any privacy concerns related to visit: Yes Minutes spent on Phone/Video with Pt.: 10 Assessment and Plan Assessment & Plan (1) Right shoulder pain: Code(s): M25.511 - Pain in right shoulder Plan: Patient advise can continue to take Tylenol Arthritis, tramadol and meloxicam as needed for pain. Offered referral to physical therapy however patient would like to proceed with x-ray prior to going to physical therapy. Right shoulder x-ray ordered. (2) Hypertension: Code(s): I10 - Essential (primary) hypertension Qualifiers: Hypertension type: essential hypertension Qualified Code(s): I10 - Essential (primary) hypertension Plan: Continue on lisinopril 20 mg daily. Follow low-salt diet exercise. Plan Keep scheduled follow-up with PCP or follow-up sooner if needed. Orders: Orders XR shoulder RT min 2V Today M25.511 - Pain in right shoulder Coding Level of Care Code Tele Est Pt Level 3 (15003) Diagnoses Right shoulder pain M25.511 Hypertension I10 Hypertension type: essential hypertension
== END 2023-02-16 08:28 | disposition home or self-care (01) ==
LOC: HO.HMGH 07:20
PROVIDERS: PCP Internal Medicine; Visit Provider Nurse Practitioner Family
DX: I10 Essential (primary) hypertension (principal); M25.511 Pain in right shoulder
CPT/HCPCS: 99213

== ENCOUNTER 2023-02-16 08:17 | Outpatient (REF) | payer MEDICARE, SELFPAY ==
--- NOTE | ~2023-02-16 | XR_ITS ---
EXAMINATION: XR SHOULDER, RIGHT CLINICAL INFORMATION: Right shoulder pain. COMPARISON: None available. TECHNIQUE: AP external rotation, Grashey, scapular Y, and axillary views of the right shoulder. FINDINGS: Mild right acromioclavicular degenerative joint changes are seen. There is no acute fracture or dislocation. The visualized right ribs are intact with the soft tissues are unremarkable. XR/XR shoulder RT min 2V IMPRESSION: Mild right acromioclavicular degenerative joint changes. No acute fracture.
== END 2023-02-16 08:18 | disposition home or self-care (01) ==
LOC: HO.XRAY 08:17
PROVIDERS: PCP Internal Medicine; Visit Provider Nurse Practitioner Family
DX: M25.511 Pain in right shoulder (principal)
CPT/HCPCS: 73030

== ENCOUNTER 2023-03-24 08:27 | Outpatient (AMB) | payer MEDICARE, SELFPAY ==
[2023-03-24 08:38] VITALS: BP 150/90; PULSE 58; O2SAT 97; BMI 30.6
--- NOTE | 2023-03-24 08:38 | MHC.PC.OV ---
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 Required: No Accompanied by: Self / Same As Patient Allergies No Known Allergies [No Known Allergies*] Allergy (Verified 03/24/23 08:38) Medication List - Last Reconciled 03/24/23 by Jennifer Downing MD fexofenadine (Janay Allergy) 180 mg PO DAILY lisinopril 40 mg PO DAILY 90 days meloxicam 15 mg PO DAILY metronidazole 1% (Metrogel) 1 application topical daily; omeprazole 20 mg PO DAILY 90 days tamsulosin (Flomax) 0.4 mg PO BEDTIME 90 days tramadol 50 mg PO QID PRN 30 days triamcinolone acetonide 0.5% 1 appl topical BID 14 days [Tylenol Arthritis 650 mg PO Q8-10H PRN] Tobacco use date assessed: 07/16/22 Fall risk assessment: No Falls in past year Last assessed Fall Risk: 03/24/23 Dental Screening Dental Screen Date: 03/24/23 Did you have a dental visit in the last 12 months?: No Did you have a dental problem in the last 6 months where you did not have access to dental care?: No Was dental information given to patient?: No HPI LBP, hand pain HPI Details 67-year-old obese male with hypertension last seen January 2023 on lisinopril coming in for follow-up. Patient complained of right shoulder pain the last time x-ray was ordered. Showing degenerative changes mild. Patient's last complete blood work was done in sees December 2022 [facility] Medical History (Updated 03/24/23 @ 09:03 by Jennifer Downing MD) Diverticulosis Overweight (BMI 25.0-29.9) Swelling of right lower extremity Osteoarthritis Tubular adenoma of colon Alcohol abuse Obesity (BMI 30-39.9) GERD (gastroesophageal reflux disease) Hypercholesterolemia Hypertension Surgical History History of tonsillectomy Lipoma Family History Father CVD (cardiovascular disease) Stroke Mother No problems noted. Paternal Aunt Myocardial infarction Paternal Uncle Myocardial infarction Brother No problems noted. Sister No problems noted. Daughter No problems noted. Social History Household Members: Significant Other Housing: Apartment Alcohol intake: never Patient Tobacco Use Status: Former Tobacco user Tobacco use type: Cigarette e-Cigarette/Vaping Use: Never Used Second Hand Smoke Exposure: No service: No Current occupational status: retired Cognitive needs: No Hearing needs: No Vision needs: Yes (glasses) Questionnaire PHQ-9 Over the last 2 weeks, how often have you been bothered by any of the following problems? 1. Little interest or pleasure in doing things: not at all 2. Feeling down, depressed, or hopeless: not at all 3. Trouble falling or staying asleep, or sleeping too much: not at all 4. Feeling tired or having little energy: not at all 5. Poor appetite or overeating: not at all 6. Feeling bad about yourself - or that you are a failure or have let yourself or your family down: not at all 7. Trouble concentrating on things, such as reading the newspaper or watching television: not at all 8. Moving or speaking so slowly that other people could have noticed. Or the opposite - being so fidgety or restless that you have been moving around a lot more than usual: not at all 9. Thoughts that you would be better off or of hurting yourself in some way: not at all Total score: 0 Depression Screening Interpretation: Negative Source: Developed by Drs. Mazin Puri, Khadar Coombs and colleagues, with an educational nayana from [employer]. Thrive Questionnaire Date Thrive assessed: 07/16/22 AUDIT C Alcohol Use Questionnaire (AUDIT-C) 1. How often do you have a drink containing alcohol?: Never Total Score: 0 LUIS M-7 AMB Questionnaire LUIS M-7 Date LUIS M - 7 assessed: 07/16/22 Source: Developed by Drs. Mazin Puri, Khadar Coombs and colleagues, with an educational nayana from [employer]. Physical exam (Primary Care) Vital Signs: Last Vital Signs Pulse 58 03/24/23 08:38 BP 150/90 H 03/24/23 08:38 Pulse Ox 97 03/24/23 08:38 Oxygen Delivery Method Room Air 03/24/23 08:38 BMI result Body Mass Index 30.6 Tobacco/Smoking Status: Tobacco use Status Tobacco use date assessed 07/16/22 03/24/23 08:38 Patient Tobacco Use Status Former Tobacco user 03/24/23 08:38 Tobacco use type Cigarette 03/24/23 08:38 e-Cigarette/Vaping Use Never Used 03/24/23 08:38 PHQ-9: PHQ-9 Score PHQ-9: Total score 0 03/24/23 08:43 Depression Screening Interpretation: Negative Thrive Assessment: Date of Thrive Assessment Date Thrive assessed 07/16/22 03/24/23 08:38 Const General: alert; No acute distress Eyes Conjunctivae: conjunctivae normal Resp Auscultation: clear to auscultation bilaterally Cardio Rate: regular rate Rhythm: regular rhythm GI Inspection: Yes normal to inspection Extrem Other: Right shoulder limited elevation to 90 degrees and pain on anterior area. No pain/tender on backside as well as lateral side. No swelling General: No edema Assessment and Plan Assessment & Plan (1) Obesity (BMI 30-39.9): Code(s): E66.9 - Obesity, unspecified Plan: Diet and exercise. Discussed about needing to lose weight to help lower down blood pressure (2) GERD (gastroesophageal reflux disease): Code(s): K21.9 - Gastro-esophageal reflux disease without esophagitis Qualifiers: Esophagitis presence: without esophagitis Qualified Code(s): K21.9 - Gastro-esophageal reflux disease without esophagitis Plan: Avoid the foods that causes that usually spicy foods, tomato products, juices, coffee, soda and foods that your sensitive to. After eating do not lie down, allow 3-4 hours before in lie down. And keep the head of bed above 30 degrees to avoid the acid from going up. On omeprazole 20 mg once a day (3) Hypertension: Code(s): I10 - Essential (primary) hypertension Qualifiers: Hypertension type: essential hypertension Qualified Code(s): I10 - Essential (primary) hypertension Plan: Continue with blood pressure medication. Decrease salt intake and exercise patient takes lisinopril 20 mg once a day. With the blood pressure being high still advised to increase lisinopril to 40 mg once a day and the need to have blood work (4) BPH (benign prostatic hyperplasia): Code(s): N40.0 - Benign prostatic hyperplasia without lower urinary tract symptoms Plan: Continue with tamsulosin (5) Erectile dysfunction: Code(s): N52.9 - Male erectile dysfunction, unspecified (6) Right shoulder pain: Code(s): M25.511 - Pain in right shoulder Plan: Patient was advised physical therapy but declined for the moment and so would like to refer to Orthopedics. Orders: Orders Influenza [id number] Immunization Today Z23 - Encounter for immunization Testosterone, Total Today N52.9 - Male erectile dysfunction, unspecified Referrals Orthopedics Referral M25.511 - Pain in right shoulder Medications: New flu vacc [id number] 6mos up(PF) 0.5 mL IM ONCE 0.5 mL 0RF Z23 - Encounter for immunization sildenafil administer 30 minutes to 4 hours before activity 50 mg PO DAILY PRN 10 tabs 2RF sexual activity N52.9 - Male erectile dysfunction, unspecified Changed From lisinopril 20 mg PO DAILY 90 days 90 tabs 0RF I10 - Essential (primary) hypertension To lisinopril 40 mg PO DAILY 90 days 90 tabs 2RF I10 - Essential (primary) hypertension Coding Level of Care Code Est Pt Level 4 (53244) Diagnoses Obesity (BMI 30-39.9) E66.9 Gastroesophageal reflux disease without esophagitis K21.9 Esophagitis presence: without esophagitis Essential hypertension I10 Hypertension type: essential hypertension BPH (benign prostatic hyperplasia) N40.0 Erectile dysfunction N52.9 Right shoulder pain M25.511
== END 2023-03-24 09:09 | disposition home or self-care (01) ==
PROVIDERS: PCP Internal Medicine; Visit Provider Internal Medicine
DX: I10 Essential (primary) hypertension (principal); E66.9 Obesity, unspecified; K21.9 Gastro-esophageal reflux disease without esophagitis; Z23 Encounter for immunization; Z68.30 Body mass index [BMI] 30.0-30.9, adult; N40.0 Benign prostatic hyperplasia without lower urinary tract symptoms; N52.9 Male erectile dysfunction, unspecified; M25.511 Pain in right shoulder
CPT/HCPCS: 90471; 90686; 99214

== ENCOUNTER 2023-04-24 07:58 | Outpatient (AMB) | payer MEDICARE, SELFPAY ==
--- NOTE | 2023-04-24 08:03 | A.OFFVIS_ITS ---
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 Patient reports pain presented about 6 months ago, he believes may be caused from a fall outside of his apartment or possible work related. He states that his pain has improved. He attended PT and felt he could continue with at home exercises. Finds relief with Tylenol and tramadol. 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 The patient states the pain presented about 6 months ago. He is unsure the cause between work or falling outside his apartment. He states the pain has improved. He confirms participating in physical therapy and continues to work on the at home exercises. He claims to get pain relief with Tylenol and Tramadol. [facility] Medical History (Updated 04/24/23 @ 08:23 by Tameka Preciado) Diverticulosis Overweight (BMI 25.0-29.9) Swelling of right lower extremity Osteoarthritis Tubular adenoma of colon Alcohol abuse Obesity (BMI 30-39.9) GERD (gastroesophageal reflux disease) Hypercholesterolemia Hypertension Surgical History History of tonsillectomy Lipoma Family History Father CVD (cardiovascular disease) Stroke Mother No problems noted. Paternal Aunt Myocardial infarction Paternal Uncle Myocardial infarction Brother No problems noted. Sister No problems noted. Daughter No problems noted. 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 Cognitive needs: No Hearing needs: No Vision needs: Yes (glasses) Review of Systems Const All systems reviewed & are unremarkable except as noted in HPI and below Physical Exam Vital Signs: BMI result Body Mass Index 30.6 Const General: cooperative and no acute distress Orientation/consciousness: patient oriented x3 Resp Effort & Inspection: normal respiratory effort and able to speak in complete sentences Cardio Peripheral pulses: Peripheral pulses 2+ throughout Skin General skin exam: no rashes or lesions noted Neuro General: patient oriented x3 Extrem Other: Right shoulder: Forward flexion to 90 degrees. Abduction to 45 degrees. Pain with cross-body reach. 3/5 strength with empty can. Negative drop arm. NVI. Assessment & Plan Assessment & Plan (1) Painful arc syndrome of right shoulder: Code(s): M75.101 - Unspecified rotator cuff tear or rupture of right shoulder, not specified as traumatic (2) Rotator cuff arthropathy of right shoulder: Code(s): M12.811 - Other specific arthropathies, not elsewhere classified, right shoulder Plan Mr. Navarrete is a 67-year-old right hand dominant male who presents in the office today, as a new patient, for an evaluation of right shoulder pain. The patient states the pain presented about 6 months ago. He is unsure the cause between work or falling outside his apartment. He states the pain has improved. He confirms participating in physical therapy and continues to work on the at home exercises. He claims to get pain relief with Tylenol and Tramadol. I discussed the role of cortisone injections with the patient while in the office today. Due to him going on a trip to [place] on 04/28/2023, he would like to defer until he returns. Therefore his follow up will be after 05/06/2023. Follow up will be after he returns, or sooner if needed. X-rays of the right shoulder, obtained on 02/16/2023 and were reviewed by me, revealed no acute fracture or dislocation. Patient Instructions: Scribed for Susan Dueñas PA-C by Tameka Preciado medical stenographer, on 04/24/2023 at 8:10 am, EST. Coding Level of Care Code New Pt Level 4 (97928) Diagnoses 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.101 Rotator cuff arthropathy of right shoulder M12.811
[2023-04-24 08:11] VITALS: BMI 30.6
== END 2023-04-24 08:23 | disposition home or self-care (01) ==
PROVIDERS: PCP Internal Medicine; Visit Provider Physician Assistant
DX: M75.101 Unspecified rotator cuff tear or rupture of right shoulder, not specified as traumatic (principal); M12.811 Other specific arthropathies, not elsewhere classified, right shoulder
CPT/HCPCS: 99203

== ENCOUNTER → 2023-04-24 07:58 | Outpatient (BNVA) | payer MEDICARE, SELFPAY | PROVIDERS: PCP Internal Medicine; Visit Provider Physician Assistant | DX: M75.101 Unspecified rotator cuff tear or rupture of right shoulder, not specified as traumatic (principal); M12.811 Other specific arthropathies, not elsewhere classified, right shoulder | CPT/HCPCS: 99202 ==

== ENCOUNTER 2023-05-19 14:12 | Outpatient (AMB) | payer MEDICARE, SELFPAY ==
--- NOTE | 2023-05-19 14:19 | A.OFFVIS_ITS ---
Intake Vital Signs 05/19/23 14:29 Height 5 ft 4 in Weight 178 lb BMI 30.6 Handedness Right Intake Visit Reasons: OV-Right shoulder injection Intake Note: Mitchell is a 67 year old right hand dominant male who presents today for a cortisone injection. Allergies No Known Allergies [No Known Allergies*] Allergy (Verified 05/19/23 14:29) HPI OV-Right shoulder injection HPI Details 67-year-old right hand dominant male who presents in the office today for a follow up of right shoulder pain. The patient presents today for a cortisone injection. [facility] Medical History (Updated 04/24/23 @ 08:23 by Tameka Preciado) Diverticulosis Overweight (BMI 25.0-29.9) Swelling of right lower extremity Osteoarthritis Tubular adenoma of colon Alcohol abuse Obesity (BMI 30-39.9) GERD (gastroesophageal reflux disease) Hypercholesterolemia Hypertension Surgical History History of tonsillectomy Lipoma Family History Father CVD (cardiovascular disease) Stroke Mother No problems noted. Paternal Aunt Myocardial infarction Paternal Uncle Myocardial infarction Brother No problems noted. Sister No problems noted. Daughter No problems noted. 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 Abduction to 45 degrees. Pain with cross-body reach. 3/5 strength with empty can. Negative drop arm. NVI. Office Procedures Joint Injection/Drain Joint Injection/Drain Primary Site: right shoulder Prep: site was prepped using aseptic technique, ethochloride spray was applied and injection warnings given Injected: 80 mg of, DepoMedrol, with 8 mL of (2% plain lido ) and in the subcromial space Approach Used: posterolateral Procedure: The patient tolerated the procedure well, but had some pain with the injection and there was some relief with the local anesthesia Coding - Large joint Procedure code (CPT) selection complete Assessment & Plan Assessment & Plan (1) Painful arc syndrome of right shoulder: Code(s): M75.101 - Unspecified rotator cuff tear or rupture of right shoulder, not specified as traumatic (2) Rotator cuff arthropathy of right shoulder: Code(s): M12.811 - Other specific arthropathies, not elsewhere classified, right shoulder Plan Mr. Navarrete is a 67-year-old right hand dominant male who presents in the office today for a follow up of right shoulder pain. The patient presents today for a cortisone injection. The patient was offered a cortisone injection in the right shoulder with 80 mg of DepoMedrol. The patient was explained the risk, benefits, and alternatives to receiving this injection. After receiving consent for the injection, the patient had the procedure done while in office today. The patient tolerated the procedure well with no complications. Follow up will be PRN, or sooner if needed. Patient Instructions: Scribed for Susan Dueñas PA-C by Tameka Preciado medical accounting clerk, on 05/19/2023 at 2:16 pm, EST. Coding Level of Care Code Est Pt Level 3 (78099) Diagnoses 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.101 Rotator cuff arthropathy of right shoulder M12.811 CPT Codes Coding - Large joint: 44319 - Large joint ([id number])
[2023-05-19 14:29] VITALS: BMI 30.6
== END 2023-05-19 14:29 | disposition home or self-care (01) ==
PROVIDERS: PCP Internal Medicine; Visit Provider Physician Assistant
DX: M75.101 Unspecified rotator cuff tear or rupture of right shoulder, not specified as traumatic (principal); M12.811 Other specific arthropathies, not elsewhere classified, right shoulder
CPT/HCPCS: 20610; 99213

== ENCOUNTER → 2023-05-19 14:12 | Outpatient (BNVA) | payer MEDICARE, SELFPAY | PROVIDERS: PCP Internal Medicine; Visit Provider Physician Assistant | DX: M75.101 Unspecified rotator cuff tear or rupture of right shoulder, not specified as traumatic (principal); M12.811 Other specific arthropathies, not elsewhere classified, right shoulder | CPT/HCPCS: 20610; 99212; J1040 ==

== ENCOUNTER 2023-07-08 08:35 | Outpatient (AMB) | payer MEDICARE, SELFPAY ==
[2023-07-08 08:36] VITALS: BP 142/76; PULSE 74; O2SAT 97; BMI 31.4
--- NOTE | 2023-07-08 08:36 | MHC.PC.OV ---
Vital Signs 07/08/23 08:36 07/08/23 08:58 Height 5 ft 4 in Weight 183 lb BMI 31.4 BP 142/76 H 136/70 Blood Pressure Location Lt brachial Lt brachial Position Sitting Sitting Pulse 74 Pulse Source Pulse Oximeter Pulse Oximetry (%) 97 Oxygen Delivery Method Room Air Intake Visit Reasons: Hypertension Allergies No Known Allergies [No Known Allergies*] Allergy (Verified 07/08/23 08:37) Tobacco use date assessed: 07/08/23 Fall risk assessment: 1 Fall in past year Last assessed Fall Risk: 07/08/23 Dental Screening Dental Screen Date: 07/08/23 Did you have a dental visit in the last 12 months?: Yes Did you have a dental problem in the last 6 months where you did not have access to dental care?: No Was dental information given to patient?: Patient has dentist HPI Hypertension HPI Details 67-year-old obese male with GERD hypertension BPH coming in for follow-up last seen in March 2023 had right shoulder pain and referred to orthopedics.. slipped last thursday had a R bruise on the R flank , deny problem with urination [facility] Medical History (Updated 07/08/23 @ 09:03 by Jennifer Downing MD) Diverticulosis Overweight (BMI 25.0-29.9) Swelling of right lower extremity Osteoarthritis Tubular adenoma of colon Alcohol abuse Obesity (BMI 30-39.9) GERD (gastroesophageal reflux disease) Hypercholesterolemia Hypertension Surgical History History of tonsillectomy Lipoma Family History Father CVD (cardiovascular disease) Stroke Mother No problems noted. Paternal Aunt Myocardial infarction Paternal Uncle Myocardial infarction Brother No problems noted. Sister No problems noted. Daughter No problems noted. 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 1. Little interest or pleasure in doing things: not at all 2. Feeling down, depressed, or hopeless: not at all 3. Trouble falling or staying asleep, or sleeping too much: not at all 4. Feeling tired or having little energy: not at all 5. Poor appetite or overeating: not at all 6. Feeling bad about yourself - or that you are a failure or have let yourself or your family down: not at all 7. Trouble concentrating on things, such as reading the newspaper or watching television: not at all 8. Moving or speaking so slowly that other people could have noticed. Or the opposite - being so fidgety or restless that you have been moving around a lot more than usual: not at all 9. Thoughts that you would be better off or of hurting yourself in some way: not at all Total score: 0 Depression Screening Interpretation: Negative Depression Screening Done: Yes Source: Developed by Drs. Mazin Puri, Felisa Smith, Khadar Garcia and colleagues, with an educational nayana from [employer]. Thrive Questionnaire Date Thrive assessed: 07/08/23 I am a: Patient What is your living situation today?: I have a steady place to live Within the past 12 months, did the food you bought not last and you didn't have the money to get more?: Never true Within the past 12 months, did you worry whether your food would run out before you got money to buy more?: Never true Do you have trouble paying for medicines?: No Do you have trouble getting transportation to medical appointments?: No Do you have trouble paying your heating and electricity bill?: No Do you have trouble taking care of your child, family member or friend?: No Do you have trouble with day-to-day activities such as bathing, preparing meals, shopping, managing finances, etc.?: No Are you currently unemployed and looking for a job?: No Are you interested in more education?: No AUDIT C Alcohol Use Questionnaire (AUDIT-C) 1. How often do you have a drink containing alcohol?: Never Total Score: 0 LUIS M-7 AMB Questionnaire LUIS M-7 Date LUIS M - 7 assessed: 07/08/23 Feeling nervous, anxious, or on edge: 0 = Not at all Not being able to stop or control worryin = Not at all Worrying too much about different things: 0 = Not at all Trouble relaxin = Not at all Being so restless that it is hard to sit still: 0 = Not at all Becoming easily annoyed or irritable: 0 = Not at all Feeling afraid as if something awful might happen: 0 = Not at all Total LUIS M-7 score (0-4 normal; 5-9 mild; 10-14 moderate; 15-21 severe): 0 Source: Developed by Drs. Mazin Puri, Felisa Smith, Khadar Garcia and colleagues, with an educational nayana from [employer]. Physical exam (Primary Care) Vital Signs: Last Vital Signs Pulse 74 07/08/23 08:36 BP 142/76 H 07/08/23 08:36 Pulse Ox 97 07/08/23 08:36 Oxygen Delivery Method Room Air 07/08/23 08:36 BMI result Body Mass Index 31.4 Tobacco/Smoking Status: Tobacco use Status Tobacco use date assessed 07/08/23 07/08/23 08:39 Patient Tobacco Use Status Former Tobacco user 07/08/23 08:39 Tobacco use type Cigarette 07/08/23 08:39 e-Cigarette/Vaping Use Never Used 07/08/23 08:39 PHQ-9: PHQ-9 Score PHQ-9: Total score 0 07/08/23 08:39 Depression Screening Interpretation: Negative Thrive Assessment: Date of Thrive Assessment Date Thrive assessed 07/08/23 07/08/23 08:39 Const General: alert; No acute distress Eyes Conjunctivae: conjunctivae normal Resp Auscultation: clear to auscultation bilaterally Cardio Rate: regular rate Rhythm: regular rhythm GI Inspection: Yes normal to inspection Extrem General: Yes normal to inspection and No edema Assessment and Plan Assessment & Plan (1) Hypertension: Code(s): I10 - Essential (primary) hypertension Qualifiers: Hypertension type: essential hypertension Qualified Code(s): I10 - Essential (primary) hypertension Plan: Continue with blood pressure medication. Decrease salt intake and exercise presently on lisinopril 40 mg once a day (2) Hypercholesterolemia: Code(s): E78.00 - Pure hypercholesterolemia, unspecified Plan: Avoid fried foods, chicken skin, eggs, butter margarine, pastries and meat. Be it pork or beef they have a lot of cholesterol LDL goal of less than 130 and triglyceride of less than 150 patient will need blood work. (3) GERD (gastroesophageal reflux disease): Code(s): K21.9 - Gastro-esophageal reflux disease without esophagitis Qualifiers: Esophagitis presence: without esophagitis Qualified Code(s): K21.9 - Gastro-esophageal reflux disease without esophagitis Plan: Avoid the foods that causes that usually spicy foods, tomato products, juices, coffee, soda and foods that your sensitive to. After eating do not lie down, allow 3-4 hours before in lie down. And keep the head of bed above 30 degrees to avoid the acid from going up. (4) Obesity (BMI 30-39.9): Code(s): E66.9 - Obesity, unspecified Plan: Diet and exercise (5) BPH (benign prostatic hyperplasia): Code(s): N40.0 - Benign prostatic hyperplasia without lower urinary tract symptoms Plan: Continue with tamsulosin (6) Painful arc syndrome of right shoulder: Code(s): M75.101 - Unspecified rotator cuff tear or rupture of right shoulder, not specified as traumatic Plan: Patient has met with Orthopedics November had an injection done (7) Fall: Comment: 06/2023 Code(s): W19.XXXA - Unspecified fall, initial encounter (8) Flank pain: Comment: 06/2023 Bruise Code(s): R10.9 - Unspecified abdominal pain Orders: Orders UA w Microscopic Today R10.9 - Unspecified abdominal pain Medications: Refilled lisinopril 40 mg PO DAILY 90 days 90 tabs 2RF I10 - Essential (primary) hypertension Coding Level of Care Code Est Pt Level 4 (83544) Diagnoses Essential hypertension I10 Hypertension type: essential hypertension Hypercholesterolemia E78.00 Gastroesophageal reflux disease without esophagitis K21.9 Esophagitis presence: without esophagitis Obesity (BMI 30-39.9) E66.9 BPH (benign prostatic hyperplasia) N40.0 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.101 Fall W19.XXXA Flank pain R10.9
[2023-07-08 08:58] VITALS: BP 136/70
== END 2023-07-08 09:16 | disposition home or self-care (01) ==
PROVIDERS: PCP Internal Medicine; Visit Provider Internal Medicine
DX: I10 Essential (primary) hypertension (principal); E78.00 Pure hypercholesterolemia, unspecified; Z68.31 Body mass index [BMI] 31.0-31.9, adult; E66.9 Obesity, unspecified; K21.9 Gastro-esophageal reflux disease without esophagitis; N40.0 Benign prostatic hyperplasia without lower urinary tract symptoms; M75.101 Unspecified rotator cuff tear or rupture of right shoulder, not specified as traumatic; W19.XXXA Unspecified fall, initial encounter; R10.9 Unspecified abdominal pain
CPT/HCPCS: 99214

== ENCOUNTER 2023-07-23 08:15 | Outpatient (REF) | payer MEDICARE, SELFPAY ==
[2023-07-23 08:28] LABS: MANUAL DIFF FLAG NO
[2023-07-23 08:47] LABS: Appearance Urine Clear; Color Urine Yellow; Glucose Urine UA Negative (Negative); Leukocyte Esterase Urine Negative (Negative); Nitrite Urine Negative (Negative); PH 5.5 (5.0-9.0); Specific Gravity - Urine >= 1.030 (1.005-1.025); UMIC TRIGGER UA YES; Urine Blood Small (1+) (Negative); Urine Ketones 15 mg/dL (Negative); Urine Protein Trace mg/dL (Neg-Trace)
[2023-07-23 08:52] LABS: Bacteria Urine None Seen (None Seen); Hyaline Casts Urine 0-2 /LPF (0-2); RBC Urine >20 /HPF (0-2); Squamous Epithelial Cell Urine 0-2 /HPF (0-2); WBC Urine 0-5 /HPF (0-5)
[2023-07-23 08:59] LABS: Basophils Percent Auto 0.3 % (0-2); Eosinophils Absolute Auto 0.1 X10*3/uL (0.0-0.4); Eosinophils Percent Auto 1.3 % (0-4); Hematocrit 41.5 % (42.0-52.0); Hemoglobin 13.5 g/dl (14.0-18.0); Imm Gran Abs Auto 0.02 X10*3/uL (0.00-0.03); Imm Gran Pct Auto 0.3 % (0.0-0.4); Immature Retic Fraction 7.8 % (2.3-13.4); Lymphocytes Absolute Auto 0.5 X10*3/uL (1.2-4.9); Lymphocytes Percent Auto 7.1 % (20-40); Mean Corpuscular HGB Conc 32.5 g/dl (31.0-36.0); Mean Corpuscular Hemoglobin 27.8 pg (27.0-33.0); Mean Corpuscular Volume 85.6 fL (80.0-98.0); Mean Platelet Volume 11.9 fL (9.4-12.4); Monocytes Absolute Auto 0.6 X10*3/uL (0.1-1.2); Neutrophils Absolute Auto 5.9 x10*3/uL (2.0-8.3); Platelet Count 137 X10*3/uL (160-400); Red Blood Count 4.85 X10*6/uL (4.60-5.80); Red Cell Distribution Width 13.6 % (11.0-16.0); Retic HGB Equivalent 30.2 pg (30.0-35.0); Reticulocyte Percent 1.1 % (0.5-1.8); Reticulocytes Absolute 0.053 X10*6/uL (0.026-0.095); White Blood Count 7.1 X10*3/uL (4.8-10.8)
[2023-07-23 09:37] LABS: Alanine Aminotransferase 12 U/L (0-40); Albumin Level 3.8 g/dL (3.5-5.0); Alkaline Phosphatase 83 U/L (39-117); Anion Gap 13 (12-20); Aspartate Amino Transferase 18 U/L (5-37); Bilirubin Total 0.5 mg/dL (0.0-1.0); Blood Urea Nitrogen 19 mg/dL (9-16); Calcium 8.7 mg/dL (8.4-10.2); Carbon Dioxide 24 mmol/L (22-29); Chloride 105 mmol/L (96-108); Cholesterol 143 mg/dL (<200); Estimated Glomerular Filt Rate > 60; Glucose Random 87 mg/dL (60-115); HDL Cholesterol 50 mg/dL (>40); Iron 16 mcg/dL (45-160); LDL Cholesterol Calculated 83 mg/dL (<100); Percent Iron Saturation 7 % (15-50); Potassium 3.8 mmol/L (3.3-5.1); Sodium 138 mmol/L (135-145); Total Iron Binding Capacity 217 mcg/dL (228-428); Triglycerides 50 mg/dL (<150); Unsaturated Iron Binding 201 ug/dL
[2023-07-23 09:44] LABS: Ferritin 133 ng/mL (20-250); Free T4 (Free Thyroxine) 0.83 ng/dL (0.71-1.85); Thyroid Stimulating Hormone 0.81 uIU/mL (0.32-4.0)
[2023-07-23 10:06] LABS: Folate 12.8 ng/mL (> or = 4.0); Prostate Specific Antigen Scr 0.42 ng/mL (<0.05-4.0)
[2023-07-23 10:17] LABS: Vitamin B12 382 pg/mL (200-900)
[2023-07-28 12:24] LABS: Testosterone, Total 132 ng/dL (250-1100)
== END 2023-07-23 08:16 | disposition home or self-care (01) ==
LOC: HO.LAB 08:15
PROVIDERS: PCP Internal Medicine; Visit Provider Internal Medicine
DX: Z12.5 Encounter for screening for malignant neoplasm of prostate (principal); R10.9 Unspecified abdominal pain; E78.00 Pure hypercholesterolemia, unspecified; N52.9 Male erectile dysfunction, unspecified
CPT/HCPCS: 36415; 80053; 80061; 81001; 82607; 82728; 82746; 83540; 84153; 84403; 84439; 84443; 85025; 85045

== ENCOUNTER 2023-07-24 12:15 | Outpatient (AMB) | payer MEDICARE, SELFPAY ==
--- NOTE | 2023-07-24 12:38 | A.OFFVIS_ITS ---
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 Accompanied by: Self / Same As Patient Allergies No Known Allergies [No Known Allergies*] Allergy (Verified 07/24/23 12:46) Medication List - Last Reconciled 07/24/23 by Jennifer Downing MD fexofenadine (Janay Allergy) 180 mg PO DAILY lisinopril 40 mg PO DAILY 90 days omeprazole 20 mg PO DAILY 90 days sildenafil 50 mg PO DAILY PRN tamsulosin (Flomax) 0.4 mg PO BEDTIME 90 days tramadol 50 mg PO QID PRN 30 days triamcinolone acetonide 0.5% 1 appl topical BID 14 days [Tylenol Arthritis 650 mg PO Q8-10H PRN] HPI AWV G0438 HPI Details 67-year-old obese male with hypertension hypercholesterolemia GERD BPH coming in for annual well visit last seen early last month having right shoulder pain also. Patient's colonoscopy is up-to-date patient is here today for annual well visit. occ feverish. L ear deaf [facility] Medical History (Updated 07/24/23 @ 14:02 by Jennifer Downing MD) Anemia Diverticulosis Overweight (BMI 25.0-29.9) Swelling of right lower extremity Osteoarthritis Tubular adenoma of colon Alcohol abuse Obesity (BMI 30-39.9) GERD (gastroesophageal reflux disease) Hypercholesterolemia Hypertension Surgical History History of tonsillectomy Lipoma Family History Father CVD (cardiovascular disease) Stroke Mother No problems noted. Paternal Aunt Myocardial infarction Paternal Uncle Myocardial infarction Brother No problems noted. Sister No problems noted. Daughter No problems noted. 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 Cognitive needs: No Hearing needs: No Vision needs: Yes (glasses) Questionnaire Medicare Wellness Checkup What [age] What gender do you identify with?: male During the past 4 weeks, how much have you been bothered by emotional problems such as feeling anxious, depressed, irritable, sad or downhearted, and blue?: moderately During the past 4 weeks, has your physical & emotional health limited your social activities with family, friends, neighbors, or groups?: slightly During the past 4 weeks, how much bodily pain have you generally had?: moderate pain During the past 4 weeks, was someone available to help you if you needed & wanted help?: yes, a little During the past 4 weeks, what was the hardest physical activity you could do for at least 2 minutes?: very light Can you get to places out of walking distance without help? (For eg., can you travel alone on buses, taxis or drive your car?): Yes Can you go shopping for groceries or clothes without someone's help?: Yes Can you prepare your own meals?: Yes Can you do your housework without help?: Yes Because of any health problems, do you need the help of another person with your personal care needs such as eating, bathing, dressing or getting around the house?: No Can you handle your own money without help?: Yes During the past 4 weeks, how would you rate your health in general?: excellent During the past 4 weeks how have things been going for you?: very well; could hardly better Are you having difficulties driving your car?: no Do you always fasten your seat belt when you are in a car?: yes, usually During past 4 weeks, have you been bothered by the following: never: Falling or dizzy when standing up, Teeth or denture problems? and Problems using the telephone?, seldom: Tiredness or fatigue?, sometimes: Trouble eating well? and always: Sexual problems? Have you fallen 2 or more times in the past year?: Yes Are you afraid of falling?: No Are you a smoker?: no During the past 4 weeks, how many drinks of wine, beer, or other alcoholic beverages did you have?: no alcohol at all Do you exercise for about 20 minutes 3 or more times a week?: yes, most of the time Have you been given information to help with the following?: no: Hazards in your house that might hurt you? and no: Keeping track of your medications? How often do you have trouble taking medicines the way you have been told to take them?: I do not have to take medicine How confident are you that you can control & manage most of your health problems?: very confident What is your race?: or origin or descent PHQ-9 Over the last 2 weeks, how often have you been bothered by any of the following problems? 1. Little interest or pleasure in doing things: not at all 2. Feeling down, depressed, or hopeless: not at all 3. Trouble falling or staying asleep, or sleeping too much: not at all 4. Feeling tired or having little energy: not at all 5. Poor appetite or overeating: not at all 6. Feeling bad about yourself - or that you are a failure or have let yourself or your family down: not at all 7. Trouble concentrating on things, such as reading the newspaper or watching television: not at all 8. Moving or speaking so slowly that other people could have noticed. Or the opposite - being so fidgety or restless that you have been moving around a lot more than usual: not at all 9. Thoughts that you would be better off or of hurting yourself in some way: not at all Total score: 0 Depression Screening Interpretation: Negative Depression Screening Done: Yes 49728 - PHQ-9 Billing: Yes Source: Developed by Drs. Mazin Puri, Felisa Smith, Khadar Garcia and colleagues, with an educational nayana from [email or web address]. Review of Systems Const Denies poor appetite and Denies weakness Eyes Denies no additional complaints ENT Reports Normal hearing present, Denies dizziness, Denies nasal congestion, Denies tinnitus and Denies sore throat Card Denies chest pain, Denies syncope, Denies rapid heart rate and Denies dyspnea Resp Denies cough and Denies dyspnea GI Denies change in stool character, Reports constipation, Denies diarrhea, Denies nausea and Denies vomiting Denies dysuria and Denies urinary frequency Neuro Reports Normal hearing present, Denies confusion, Denies dizziness, Denies syncope and Denies weakness Psych Denies confusion Physical Exam Vital Signs: BMI result Body Mass Index 30.6 Const General: No confusion Orientation/consciousness: No confusion HEENT Head: Yes normocephalic Ears: external ears normal and TM's normal bilaterally Face and sinus: Yes normal facial exam Mouth: moist mucous membranes Throat: Yes tonsils normal Eyes Conjunctivae: conjunctivae normal Pupils: Equal, round and reactive pupils present and Pupil accommodation reflex normal Direct Ophthalmoscopy: normal light reflex Neck Neck: No lymphadenopathy Thyroid: Thyroid normal Chest Chest palpation & inspection: normal inspection of the chest Resp Effort & Inspection: normal respiratory effort and no audible wheezes Auscultation: clear to auscultation bilaterally, no crackles, no wheezes and lung sounds not diminished Cardio Rate: regular rate Rhythm: regular rhythm Peripheral pulses: radial pulses present and dorsalis pedis present GI Other: decline Palpation (GI): no masses Auscultation: normal bowel sounds and normoactive bowel sounds Rectal Exam - Male: Yes deferred Male General Exam: Yes normal external exam Skin General skin exam: no rashes or lesions noted Rashes: no rashes Neuro General: No confusion Cranial nerves: Yes Equal, round and reactive pupils present and Yes Normal hearing present Cognition (Neuro): normal cognition Gait exam (Neuro): Normal gait present Motor exam (neuro): 5/5 motor strength present throughout Deep tendon reflexes (DTR's): Right brachioradialis reflex intensity grade: 2+, Left brachioradialis reflex intensity grade: 2+, Right patellar reflex intensity grade: 2+ and Left patellar reflex intensity grade: 2+ Extrem General: No edema Assessment & Plan Assessment & Plan (1) Medicare annual wellness visit, subsequent: Code(s): Z00.00 - Encounter for general adult medical examination without abnormal findings Plan: Keep well hydrated, keep active and eat healthy! (2) Hypertension: Code(s): I10 - Essential (primary) hypertension Qualifiers: Hypertension type: essential hypertension Qualified Code(s): I10 - Essential (primary) hypertension Plan: Continue with blood pressure medication. Decrease salt intake and exercise patient on lisinopril 40 mg once a day (3) Hypercholesterolemia: Code(s): E78.00 - Pure hypercholesterolemia, unspecified Plan: Avoid fried foods, chicken skin, eggs, butter margarine, pastries and meat. Be it pork or beef they have a lot of cholesterol LDL goal of less than 130 and triglyceride of less than 150 (4) GERD (gastroesophageal reflux disease): Code(s): K21.9 - Gastro-esophageal reflux disease without esophagitis Qualifiers: Esophagitis presence: without esophagitis Qualified Code(s): K21.9 - Gastro-esophageal reflux disease without esophagitis Plan: Avoid the foods that causes that usually spicy foods, tomato products, juices, coffee, soda and foods that your sensitive to. After eating do not lie down, allow 3-4 hours before in lie down. And keep the head of bed above 30 degrees to avoid the acid from going up. (5) Obesity (BMI 30-39.9): Code(s): E66.9 - Obesity, unspecified Plan: Diet and exercise (6) Iron deficiency anemia: Code(s): D50.9 - Iron deficiency anemia, unspecified Qualifiers: Iron deficiency anemia type: inadequate dietary iron intake Qualified Code(s): D50.8 - Other iron deficiency anemias Plan: Discussed about needing iron and vitamin-C (7) BPH (benign prostatic hyperplasia): Code(s): N40.0 - Benign prostatic hyperplasia without lower urinary tract symptoms Qualifiers: Lower urinary tract symptom presence: symptoms present Lower urinary tract symptom detail: incomplete bladder emptying Qualified Code(s): N40.1 - Benign prostatic hyperplasia with lower urinary tract symptoms; R39.14 - Feeling of incomplete bladder emptying Plan: Continue with tamsulosin (8) History of nicotine use: Code(s): Z87.891 - Personal history of nicotine dependence Plan: referral to lung cancer screening (9) Dysphagia: Code(s): R13.10 - Dysphagia, unspecified Qualifiers: Dysphagia type: oropharyngeal phase Qualified Code(s): R13.12 - Dysphagia, oropharyngeal phase Plan: test for barium swallow requested (10) Hearing difficulty: Code(s): H91.90 - Unspecified hearing loss, unspecified ear Qualifiers: Laterality: left Qualified Code(s): H91.92 - Unspecified hearing loss, left ear Plan: hearing test requested Orders: Orders Reticulocyte Count Today D50.9 - Iron deficiency anemia, unspecified [place] barium swallow Today R13.10 - Dysphagia, unspecified Complete Blood Count Auto Diff 3 Months D50.9 - Iron deficiency anemia, unspecified Ferritin 3 Months D50.9 - Iron deficiency anemia, unspecified IRON PROFILE 3 Months D50.9 - Iron deficiency anemia, unspecified Referrals Speech and Hearing Referral H91.90 - Unspecified hearing loss, unspecified ear Thoracic Surgery Referral Z87.891 - Personal history of nicotine dependence Medications: New ferrous sulfate 325 mg PO DAILY 90 tabs 1RF D50.9 - Iron deficiency anemia, unspecified ascorbic acid (vitamin C) 500 mg PO .QD 90 days 90 caps 1RF D50.9 - Iron deficiency anemia, unspecified Quality Reporting (2019) Depression/Bipolar (159/160/161/177) PHQ-9: Total score: 0 Coding Level of Care Code Medicare Subsequent (G0439) Diagnoses Medicare annual wellness visit, subsequent Z00.00 Essential hypertension I10 Hypertension type: essential hypertension Hypercholesterolemia E78.00 Gastroesophageal reflux disease without esophagitis K21.9 Esophagitis presence: without esophagitis Obesity (BMI 30-39.9) E66.9 Iron deficiency anemia secondary to inadequate dietary iron intake D50.8 Iron deficiency anemia type: inadequate dietary iron intake Benign prostatic hyperplasia with incomplete bladder emptying N40.1; R39.14 Lower urinary tract symptom presence: symptoms present Lower urinary tract symptom detail: incomplete bladder emptying History of nicotine use Z87.891 Oropharyngeal dysphagia R13.12 Dysphagia type: oropharyngeal phase Hearing difficulty of left ear H91.92 Laterality: left
[2023-07-24 12:40] VITALS: BP 122/72; PULSE 64; O2SAT 98; BMI 30.6
== END 2023-07-24 13:15 | disposition home or self-care (01) ==
PROVIDERS: PCP Internal Medicine; Visit Provider Internal Medicine
DX: Z00.00 Encounter for general adult medical examination without abnormal findings (principal); I10 Essential (primary) hypertension; Z68.30 Body mass index [BMI] 30.0-30.9, adult; E66.9 Obesity, unspecified; E78.00 Pure hypercholesterolemia, unspecified; K21.9 Gastro-esophageal reflux disease without esophagitis; D50.8 Other iron deficiency anemias; N40.1 Benign prostatic hyperplasia with lower urinary tract symptoms; R39.14 Feeling of incomplete bladder emptying; Z87.891 Personal history of nicotine dependence; R13.12 Dysphagia, oropharyngeal phase; H91.92 Unspecified hearing loss, left ear
CPT/HCPCS: G0439

== ENCOUNTER 2023-09-04 08:40 | Outpatient (AMB) | payer MEDICARE, SELFPAY ==
--- NOTE | 2023-09-04 08:59 | MHC.OFFVIS ---
Intake Intake Visit Reasons: LDCT SD Allergies No Known Allergies [No Known Allergies*] Allergy (Verified 07/24/23 12:46) HPI HPI Comments History of Present Illness Details Mitchell is a pleasant 67 year old male, former smoker with a 48 PYH. Patient has been smoking since age 11 for 48 years at 1 ppd, quit for total of 8 years in between Denies current marijuana use. Denies exposure to chemicals or substances like asbestos. Denies second hand smoke exposure. Denies known family history of lung cancer. Denies personal history of cancers. Denies chest CT in last year. Denies recent travel outside the [place]. Admits testing positive for COVID. Admits receiving COVID Vaccine. Denies fever, chills, chest pain, new cough, hemoptysis or unintentional weight loss. Lung Cancer Screening Questionnaire reviewed with patient by provider. Shared Decision Making Completed. Discussed in detail with patient, the risk versus benefit of LDCT screening. Patient in agreement of proceeding with scan. [facility] Medical History (Updated 07/24/23 @ 14:02 by Jennifer Downing MD) Anemia Diverticulosis Overweight (BMI 25.0-29.9) Swelling of right lower extremity Osteoarthritis Tubular adenoma of colon Alcohol abuse Obesity (BMI 30-39.9) GERD (gastroesophageal reflux disease) Hypercholesterolemia Hypertension Surgical History History of tonsillectomy Lipoma Family History Father CVD (cardiovascular disease) Stroke Mother No problems noted. Paternal Aunt Myocardial infarction Paternal Uncle Myocardial infarction Brother No problems noted. Sister No problems noted. Daughter No problems noted. 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 This patient meets criteria for LDCT for lung cancer screening purposes and is asymptomatic. Offered smoking cessation. Patient has been scheduled for a low dose chest CT for screening purposes at [facility]. We discussed how the results will be obtained depending on CT findings. RADS 1 and RADS 2 will receive a letter with results and will follow up for annual LDCT. Patient informed they will be contacted at later date to schedule upcoming LDCT scan. RADS 3 and RADS 4 will receive a telephone call, or an office visit after reviewing case at our Lung Cancer Conference to determine when the next LDCT will be scheduled or further interventions that may be needed. Discussed importance of screening program and compliance with yearly LDCT scan as scheduled. Risks, benefits, and alternatives were discussed in detail and patient agrees to proceed. Risks discussed include but are not limited to: radiation exposure and possibility of additional intervention for benign disease. Benefits include detection of lung cancer at an early stage. A copy of today's visit and LDCT results will be sent to patient's PCP. Incidental findings on LDCT are PCP's responsibility. If there are incidental findings, our office will ensure that PCP office is aware of these findings. All questions were answered and patient is in agreement of plan. Coding Level of Care Code Lung Cancer Screening G0296 Diagnoses Personal history of tobacco use Z87.891
== END 2023-09-04 09:08 | disposition home or self-care (01) ==
PROVIDERS: PCP Internal Medicine; Visit Provider Nurse Practitioner Family
DX: Z87.891 Personal history of nicotine dependence (principal)
CPT/HCPCS: G0296

== ENCOUNTER 2023-09-04 09:11 | Outpatient (REF) | payer MEDICARE, SELFPAY ==
--- NOTE | ~2023-09-04 | CT_ITS ---
EXAMINATION: CT CHEST SCREENING CLINICAL INFORMATION: Currently nonsmoker. History of 1 pack per day with 44 pack-year history. COMPARISON: CT abdomen/pelvis 04/10/2022. TECHNIQUE: Multidetector volumetric CT imaging of the chest is performed without contrast using low-dose technique. Additional 2D coronal and sagittal reformatted images and axial 3D maximum intensity projection (MIP) images are generated on the CT workstation. This CT examination was performed using dose optimization techniques as appropriate, variously including the following: *Automated exposure control *Adjustment of mA and/or kV according to patient size (this includes techniques or standardized protocols for targeted exams where dose is matched to indication/reason for exam; i.e. extremities or head) *Use of iterative reconstruction technique DLP: 57 mGy-cm FINDINGS: LUNGS: Some biapical pleural-parenchymal scarring is present. Mild emphysematous changes are seen. Mild peribronchial thickening is noted. Some small pulmonary nodular densities are seen, the largest in the right upper lobe measuring 4 mm (5:120). Ramirez images of all have been saved. The lungs are otherwise clear with no evidence of concerning inflammation or worrisome-appearing nodules. MEDIASTINUM: The mediastinum is normal. CORONARY ARTERY CALCIFICATION: Marked. PLEURA: There is no pleural effusion. No pleural mass or thickening. AXILLA: No lymphadenopathy. UPPER ABDOMEN: Unremarkable. OSSEOUS STRUCTURES: Unremarkable. CT/CT lung screening IMPRESSION: Some small nodular densities in the lungs, the largest 4 mm. No finding present at this time suggestive for malignancy. ASSESSMENT: Lung-RADS category 2: Benign RECOMMENDATION: Routine annual low-dose CT screening in 12 months.
== END 2023-09-04 09:12 | disposition home or self-care (01) ==
LOC: HO.CT 09:11
PROVIDERS: PCP Internal Medicine; Visit Provider Nurse Practitioner Family
DX: Z12.2 Encounter for screening for malignant neoplasm of respiratory organs (principal); Z87.891 Personal history of nicotine dependence
CPT/HCPCS: 71271; G0296

== ENCOUNTER 2023-10-15 08:22 | Outpatient (AMB) | payer MEDICARE, SELFPAY ==
[2023-10-15 08:39] VITALS: BP 122/70; PULSE 55; O2SAT 97; BMI 30.6
--- NOTE | 2023-10-15 08:39 | MHC.PC.OV ---
Vital Signs 10/15/23 08:39 Height 5 ft 4 in Weight 178 lb BMI 30.6 BP 122/70 Blood Pressure Location Lt brachial Position Sitting Pulse 55 Pulse Oximetry (%) 97 Oxygen Delivery Method Room Air Intake Visit Reasons: Hypertension/anemia Science Tutor Required: No Allergies No Known Allergies [No Known Allergies*] Allergy (Verified 10/15/23 08:42) Tobacco use date assessed: 10/15/23 Fall risk assessment: No Falls in past year Last assessed Fall Risk: 10/15/23 Dental Screening Dental Screen Date: 07/08/23 HPI Hypertension/anemia HPI Details 67-year-old obese male with hypertension hypercholesterolemia GERD iron deficiency anemia BPH last seen in July having dysphagia. Patient is up-to-date with colonoscopy April 2020. Because of the history of smoking patient had a CT scan of the chest for lung cancer screening 09/04/2023 noted so a small nodular densities in the lungs largest 4 mm. Blood work done in July showing anemia and low testosterone [facility] Medical History (Updated 10/15/23 @ 08:55 by Jennifer Downing MD) Anemia Diverticulosis Overweight (BMI 25.0-29.9) Swelling of right lower extremity Osteoarthritis Tubular adenoma of colon Alcohol abuse Obesity (BMI 30-39.9) GERD (gastroesophageal reflux disease) Hypercholesterolemia Hypertension Surgical History History of tonsillectomy Lipoma Family History Father CVD (cardiovascular disease) Stroke Mother No problems noted. Paternal Aunt Myocardial infarction Paternal Uncle Myocardial infarction Brother No problems noted. Sister No problems noted. Daughter No problems noted. 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 How often do you have a drink containing alcohol?: Never 3. How often do you have six or more drinks on one occasion?: Never Total Score: 0 LUIS M-7 AMB Questionnaire LUIS M-7 Date LUIS M - 7 assessed: 07/08/23 Source: Developed by Drs. Mazin Puri, Felisa Smith, Khadar Garcia and colleagues, with an educational nayana from [employer]. Physical exam (Primary Care) Vital Signs: Last Vital Signs Pulse 55 10/15/23 08:39 BP 122/70 10/15/23 08:39 Pulse Ox 97 10/15/23 08:39 Oxygen Delivery Method Room Air 10/15/23 08:39 BMI result Body Mass Index 30.6 Tobacco/Smoking Status: Tobacco use Status Tobacco use date assessed 10/15/23 10/15/23 08:43 Patient Tobacco Use Status Former Tobacco user 10/15/23 08:43 Tobacco use type Cigarette 10/15/23 08:43 e-Cigarette/Vaping Use Never Used 10/15/23 08:43 Thrive Assessment: Date of Thrive Assessment Date Thrive assessed 07/08/23 10/15/23 08:43 Const General: alert; No acute distress Eyes Conjunctivae: conjunctivae normal Resp Auscultation: clear to auscultation bilaterally Cardio Rate: regular rate Rhythm: regular rhythm GI Inspection: Yes normal to inspection Extrem General: Yes normal to inspection and No edema Assessment and Plan Assessment & Plan (1) Personal history of tobacco use: Comment: August 2023 CT scan Code(s): Z87.891 - Personal history of nicotine dependence Plan: Patient is enrolled in the lung cancer screening program August [address] scan (2) Iron deficiency anemia: Code(s): D50.9 - Iron deficiency anemia, unspecified Qualifiers: Iron deficiency anemia type: inadequate dietary iron intake Qualified Code(s): D50.8 - Other iron deficiency anemias Plan: Discussed with the patient regarding iron and hypogonadism (3) Obesity (BMI 30-39.9): Code(s): E66.9 - Obesity, unspecified Plan: Diet and exercise (4) GERD (gastroesophageal reflux disease): Code(s): K21.9 - Gastro-esophageal reflux disease without esophagitis Qualifiers: Esophagitis presence: without esophagitis Qualified Code(s): K21.9 - Gastro-esophageal reflux disease without esophagitis Plan: Avoid the foods that causes that usually spicy foods, tomato products, juices, coffee, soda and foods that your sensitive to. After eating do not lie down, allow 3-4 hours before in lie down. And keep the head of bed above 30 degrees to avoid the acid from going up. (5) Hypercholesterolemia: Code(s): E78.00 - Pure hypercholesterolemia, unspecified Plan: Avoid fried foods, chicken skin, eggs, butter margarine, pastries and meat. Be it pork or beef they have a lot of cholesterol LDL goal of less than 130 and triglyceride of less than 150. (6) Hypertension: Code(s): I10 - Essential (primary) hypertension Qualifiers: Hypertension type: essential hypertension Qualified Code(s): I10 - Essential (primary) hypertension Plan: Continue with blood pressure medication. Decrease salt intake and exercise on lisinopril 40 mg once a day (7) Hypogonadism in male: Code(s): E29.1 - Testicular hypofunction Plan: Discussed with the patient regarding hypogonadism. Orders: Orders Complete Blood Count Auto Diff 4 Months E29.1 - Testicular hypofunction Free T4 (Free Thyroxine) 4 Months E29.1 - Testicular hypofunction Ferritin 4 Months E29.1 - Testicular hypofunction Vitamin B12 and Folate 4 Months E29.1 - Testicular hypofunction Thyroid Stimulating Hormone 4 Months E29.1 - Testicular hypofunction Comprehensive Met. Panel 4 Months E29.1 - Testicular hypofunction Prostate Specific Antigen Scr 4 Months E29.1 - Testicular hypofunction Lipid Panel 4 Months E29.1 - Testicular hypofunction, E78.00 - Pure hypercholesterolemia, unspecified Testosterone, Free/Total 4 Months E29.1 - Testicular hypofunction IRON PROFILE 4 Months E29.1 - Testicular hypofunction Reticulocyte Count 4 Months E29.1 - Testicular hypofunction Medications: Refilled ascorbic acid (vitamin C) 500 mg PO .QD 90 days 90 caps 1RF D50.9 - Iron deficiency anemia, unspecified ferrous sulfate 325 mg PO DAILY 90 tabs 1RF D50.9 - Iron deficiency anemia, unspecified omeprazole 20 mg PO DAILY 90 days 90 caps 2RF E29.1 - Testicular hypofunction tamsulosin (Flomax) 0.4 mg PO BEDTIME 90 days 90 tabs 1RF R39.12 - Poor urinary stream Coding Level of Care Code Est Pt Level 4 (14912) Diagnoses Personal history of tobacco use Z87.891 Iron deficiency anemia secondary to inadequate dietary iron intake D50.8 Iron deficiency anemia type: inadequate dietary iron intake Obesity (BMI 30-39.9) E66.9 Gastroesophageal reflux disease without esophagitis K21.9 Esophagitis presence: without esophagitis Hypercholesterolemia E78.00 Essential hypertension I10 Hypertension type: essential hypertension Hypogonadism in male E29.1
== END 2023-10-15 09:11 | disposition home or self-care (01) ==
PROVIDERS: PCP Internal Medicine; Visit Provider Internal Medicine
DX: I10 Essential (primary) hypertension (principal); Z68.30 Body mass index [BMI] 30.0-30.9, adult; E66.9 Obesity, unspecified; Z87.891 Personal history of nicotine dependence; D50.8 Other iron deficiency anemias; K21.9 Gastro-esophageal reflux disease without esophagitis; E78.00 Pure hypercholesterolemia, unspecified; E29.1 Testicular hypofunction
CPT/HCPCS: 99214

== ENCOUNTER 2023-11-21 09:59 | Outpatient (AMB) | payer MEDICARE, SELFPAY ==
--- NOTE | 2023-11-21 10:57 | AM.OFFWIN_ITS ---
Intake Vital Signs 3 11/21/23 10:58 Height 5 ft 4 in Weight 176 lb BMI 30.2 BP 118/80 Blood Pressure Location Rt brachial Position Sitting Pulse 61 Pulse Source Pulse Oximeter Pulse Oximetry (%) 97 Oxygen Delivery Method Room Air Intake Visit Reasons: Est/left hand pain/ swelling (lobby) Intake Note: Patient here for left wrist and hand swelling, painful ROM which started night with some soreness and has worsened. Patient Tobacco Use Status: Former Tobacco user Allergies No Known Allergies [No Known Allergies*] Allergy (Verified 11/21/23 11:24) Do you need a note to return to daycare/school/sports/work: Yes HPI HPI Comments 2 History of Present Illness0 Details Here today with complaints of sudden onset of pain and swelling of his left hand that started a few days ago. Denies any overt injury. Treated with tramadol and Tylenol which did help the pain but not the swelling. He denies any history of gout. Does admit to eating a high purine diet. Has full range of motion however with pain. [facility] Medical History (Updated 11/21/23 @ 11:29 by Chey Arenas, [facility]) Anemia Diverticulosis Overweight (BMI 25.0-29.9) Swelling of right lower extremity Osteoarthritis Tubular adenoma of colon Alcohol abuse Obesity (BMI 30-39.9) GERD (gastroesophageal reflux disease) Hypercholesterolemia Hypertension Surgical History History of tonsillectomy Lipoma Family History Father CVD (cardiovascular disease) Stroke Mother No problems noted. Paternal Aunt Myocardial infarction Paternal Uncle Myocardial infarction Brother No problems noted. Sister No problems noted. Daughter No problems noted. 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 Erythema, edema, no excessive warmth. Skin intact. Hand neurovascularly intact. Assessment & Plan Assessment & Plan (1) Gout attack: Code(s): M10.9 - Gout, unspecified Qualifiers: Gout site: hand Gout etiology: unspecified cause Laterality: left Q ualified Code(s): M10.9 - Gout, unspecified Plan: . Medications: New 2 colchicine TAKE 2 TABS PO X 1 THEN 1 TAB PO 1 HOUR LATER. MAX 1.8MG 0.6 mg PO DIRECTED 1 day 3 caps 0RF indomethacin administer with food or milk 50 mg PO TID 30 caps 0RF Patient Instructions: Likely cause of the pain and swelling of his left hand is gout. Treat with colchicine and indomethacin as directed. If the pain and swelling continue advised to follow-up with primary care. Encouraged to follow a low purine diet and hydrate well. Coding Level of Care Code Est Pt Level 3 (70796) Diagnoses Acute gout of left hand, unspecified cause M10.9 Gout site: hand Gout etiology: unspecified cause Laterality: left
[2023-11-21 10:58] VITALS: BP 118/80; PULSE 61; O2SAT 97; BMI 30.2
== END 2023-11-21 11:47 | disposition home or self-care (01) ==
PROVIDERS: PCP Internal Medicine; Visit Provider Nurse Practitioner Family
DX: M10.9 Gout, unspecified (principal)
CPT/HCPCS: 99213

== ENCOUNTER 2023-11-23 08:04 | Outpatient (AMB) | payer MEDICARE, SELFPAY ==
--- NOTE | 2023-11-23 08:15 | A.OFFVIS_ITS ---
Intake Visit Reasons: O/V rt shoulder injection 05/19/23 Intake Note: Mitchell is a 67 year old right hand dominant male who presents today for a cortisone injection, last injection 05/19/24. Patient reports his last injection gave him about 2 months of relief and would like to repeat. Allergies No Known Allergies [No Known Allergies*] Allergy (Verified 11/23/23 08:19) HPI HPI O/V rt shoulder injection 05/19/23: Details: 67-year-old right hand dominant male who presents in the office today for a follow up of right shoulder pain. I last saw the patient in the office on 05/19/2023 when he received a cortisone injection in the right shoulder. While in the office today the patient reports his last cortisone injection gave him about 2 months of relief. He would like to repeat the injection today. Patient has a surgical history of a right rotator cuff arthroplasty. PENDING SALE TO [facility] Medical History (Updated 11/21/23 @ 11:29 by Chey Arenas, [facility]) Anemia Diverticulosis Overweight (BMI 25.0-29.9) Swelling of right lower extremity Osteoarthritis Tubular adenoma of colon Alcohol abuse Obesity (BMI 30-39.9) GERD (gastroesophageal reflux disease) Hypercholesterolemia Hypertension Surgical History History of tonsillectomy Lipoma Family History Father CVD (cardiovascular disease) Stroke Mother No problems noted. Paternal Aunt Myocardial infarction Paternal Uncle Myocardial infarction Brother No problems noted. Sister No problems noted. Daughter No problems noted. 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 Abduction to 45 degrees. Pain with cross-body reach. 3/5 strength with empty can. Negative drop arm. NVI. Office Procedures Joint Injection/Drain Joint Injection/Drain Primary Site: right shoulder Injected: 80 mg of, DepoMedrol, with 8 mL of (2% plain lido ) and in the subcromial space Approach Used: posterolateral Procedure: The patient tolerated the procedure well, but had some pain with the injection and there was some relief with the local anesthesia Coding 63773 - Large joint Procedure code (CPT) selection complete Assessment & Plan Assessment & Plan (1) Painful arc syndrome of right shoulder: Code(s): M75.101 - Unspecified rotator cuff tear or rupture of right shoulder, not specified as traumatic Category: Medical (2) Rotator cuff arthropathy of right shoulder: Code(s): M12.811 - Other specific arthropathies, not elsewhere classified, right shoulder Category: Medical Plan Mr. Navarrete is a 67-year-old right hand dominant male who presents in the office today for a follow up of right shoulder pain. I last saw the patient in the office on 05/19/2023 when he received a cortisone injection in the right shoulder. While in the office today the patient reports his last cortisone injection gave him about 2 months of relief. He would like to repeat the injection today. Patient has a surgical history of a right rotator cuff arthroplasty. The patient was offered a cortisone injection in the right shoulder with 80 mg of DepoMedrol. The patient was explained the risk, benefits, and alternatives to receiving this injection. After receiving consent for the injection, the patient had the procedure done while in the office today. The patient tolerated the procedure well with no complications. Follow-up will be PRN, or sooner if needed. Patient Instructions: Scribed by Tameka Preciado medical assisting instructor, for Susan Dueñas PA-C on 11/23/2023 at 8:08 am, EST. Coding Level of Care Code Est Pt Level 3 (80956) Diagnoses 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.101 Rotator cuff arthropathy of right shoulder M12.811 CPT Codes Coding - 66121 Large joint: 86426 - Large joint ([id number])
== END 2023-11-23 08:31 | disposition home or self-care (01) ==
PROVIDERS: PCP Internal Medicine; Visit Provider Physician Assistant
DX: M75.101 Unspecified rotator cuff tear or rupture of right shoulder, not specified as traumatic (principal); M12.811 Other specific arthropathies, not elsewhere classified, right shoulder
CPT/HCPCS: 20610; 99213

== ENCOUNTER → 2023-11-23 08:04 | Outpatient (BNVA) | payer MEDICARE, SELFPAY | PROVIDERS: PCP Internal Medicine; Visit Provider Physician Assistant | DX: M75.101 Unspecified rotator cuff tear or rupture of right shoulder, not specified as traumatic (principal); M12.811 Other specific arthropathies, not elsewhere classified, right shoulder | CPT/HCPCS: 20610; 99212; J1010 ==

== ENCOUNTER 2024-03-01 08:07 | Outpatient (AMB) | payer MEDICARE, SELFPAY ==
--- NOTE | 2024-03-01 08:13 | MHC.OFFVIS ---
Vital Signs 03/01/24 08:21 Height 5 ft 4 in Weight 176 lb BMI 30.2 Handedness Right Intake Visit Reasons: right shoulder injection, last inj 11/23/23 Intake Note: Mitchell is a 68 year old right hand dominant male who presents today for a repeat injection in his right shoulder, last injection 11/23/23. Patient reports his last injection gave him a week of relief. He states that he would like to try the injection one more time to see if it will give him some relief. Allergies No Known Allergies [No Known Allergies*] Allergy (Verified 03/01/24 08:21) HPI HPI right shoulder injection, last inj 11/23/23: Details: 68-year-old right hand dominant male who presents in the office today for a follow-up of right shoulder pain. I last saw the patient in the office on 11/23/23 when he received a cortisone injection in the right shoulder. ? ? While in the office today, the patient reports his last injection gave him a week of relief. He is interested in trying the injection one more time to see if it gives him any relief in the right shoulder. ? [facility] Medical History (Updated 11/21/23 @ 11:29 by Chey Arenas, [facility]) Anemia Diverticulosis Overweight (BMI 25.0-29.9) Swelling of right lower extremity Osteoarthritis Tubular adenoma of colon Alcohol abuse Obesity (BMI 30-39.9) GERD (gastroesophageal reflux disease) Hypercholesterolemia Hypertension Surgical History History of tonsillectomy Lipoma Family History Father CVD (cardiovascular disease) Stroke Mother No problems noted. Paternal Aunt Myocardial infarction Paternal Uncle Myocardial infarction Brother No problems noted. Sister No problems noted. Daughter No problems noted. 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 Abduction to 45 degrees. Pain with cross-body reach. 3/5 strength with empty can. Negative drop arm. NVI. Office Procedures Joint Injection/Aspiration Joint Injection/Aspiration Primary Site: right shoulder Prep: site was prepped using aseptic technique, ethochloride spray was applied and injection warnings given Injected: 80 mg of, DepoMedrol, with 8 mL of (2% plain lido ) and in the subcromial space Approach Used: posterolateral Procedure: The patient tolerated the procedure well, but had some pain with the injection and there was some relief with the local anesthesia Coding 05147 - Large joint Procedure code (CPT) selection complete Assessment & Plan Assessment & Plan (1) Painful arc syndrome of right shoulder: Code(s): M75.101 - Unspecified rotator cuff tear or rupture of right shoulder, not specified as traumatic Category: Medical (2) Rotator cuff arthropathy of right shoulder: Code(s): M12.811 - Other specific arthropathies, not elsewhere classified, right shoulder Category: Medical Plan Mr. Navarrete is a 68-year-old right hand dominant male who presents in the office today for a follow-up of right shoulder pain. I last saw the patient in the office on 11/23/23 when he received a cortisone injection in the right shoulder. ? ? While in the office today, the patient reports his last injection gave him a week of relief. He is interested in trying the injection one more time to see if it gives him any relief in the right shoulder.? ? The patient was offered a cortisone injection in the right shoulder with 80 mg of Depo-Medrol. The patient was explained the risks, benefits, and alternatives to receiving this injection. After receiving consent for the injection, the patient had the procedure done while in the office today. The patient tolerated the procedure well with no complications.? ? Follow-up will be PRN, or sooner if needed. ? Patient Instructions: Scribed by Tameka Preciado, medical records auditor, for Susan Dueñas PA-C on 03/01/2024 at 8:26 am, EST.? Coding Level of Care Code Est Pt Level 3 (85049) Complex EM visit Add On G2211 Diagnoses 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.101 Rotator cuff arthropathy of right shoulder M12.811 CPT Codes Coding - 53274 Large joint: 34237 - Large joint ([id number])
[2024-03-01 08:21] VITALS: BMI 30.2
== END 2024-03-01 08:34 | disposition home or self-care (01) ==
PROVIDERS: PCP Internal Medicine; Visit Provider Physician Assistant
DX: M75.101 Unspecified rotator cuff tear or rupture of right shoulder, not specified as traumatic (principal); M12.811 Other specific arthropathies, not elsewhere classified, right shoulder
CPT/HCPCS: 20610; 99213

== ENCOUNTER → 2024-03-01 08:07 | Outpatient (BNVA) | payer MEDICARE, SELFPAY | PROVIDERS: PCP Internal Medicine; Visit Provider Physician Assistant | DX: M75.101 Unspecified rotator cuff tear or rupture of right shoulder, not specified as traumatic (principal); M12.811 Other specific arthropathies, not elsewhere classified, right shoulder | CPT/HCPCS: 20610; 99212; J1010 ==

== ENCOUNTER 2024-03-03 08:15 | Outpatient (REF) | payer MEDICARE, SELFPAY ==
[2024-03-03 08:33] LABS: MANUAL DIFF FLAG NO
[2024-03-03 08:52] LABS: Basophils Percent Auto 0.4 % (0-2); Eosinophils Absolute Auto 0.1 X10*3/uL (0.0-0.4); Eosinophils Percent Auto 0.8 % (0-4); Hematocrit 40.7 % (42.0-52.0); Hemoglobin 13.3 g/dl (14.0-18.0); Imm Gran Abs Auto 0.05 X10*3/uL (0.00-0.03); Imm Gran Pct Auto 0.6 % (0.0-0.4); Immature Retic Fraction 12.5 % (2.3-13.4); Lymphocytes Absolute Auto 1.1 X10*3/uL (1.2-4.9); Lymphocytes Percent Auto 12.9 % (20-40); Mean Corpuscular HGB Conc 32.7 g/dl (31.0-36.0); Mean Corpuscular Hemoglobin 28.7 pg (27.0-33.0); Mean Corpuscular Volume 87.7 fL (80.0-98.0); Mean Platelet Volume 11.2 fL (9.4-12.4); Monocytes Absolute Auto 0.7 X10*3/uL (0.1-1.2); Monocytes Percent Auto 7.7 % (2-11); Neutrophils Absolute Auto 6.6 x10*3/uL (2.0-8.3); Neutrophils Percent Auto 77.6 % (45-73); Platelet Count 191 X10*3/uL (160-400); Red Blood Count 4.64 X10*6/uL (4.60-5.80); Red Cell Distribution Width 13.1 % (11.0-16.0); Retic HGB Equivalent 31.7 pg (30.0-35.0); Reticulocyte Percent 1.3 % (0.5-1.8); Reticulocytes Absolute 0.061 X10*6/uL (0.026-0.095); White Blood Count 8.5 X10*3/uL (4.8-10.8)
[2024-03-03 09:31] LABS: Alanine Aminotransferase 17 U/L (0-40); Albumin Level 4.3 g/dL (3.5-5.0); Alkaline Phosphatase 83 U/L (39-117); Anion Gap 12 (12-20); Aspartate Amino Transferase 18 U/L (5-37); Bilirubin Total 0.4 mg/dL (0.0-1.0); Blood Urea Nitrogen 24 mg/dL (9-16); Calcium 9.5 mg/dL (8.4-10.2); Carbon Dioxide 28 mmol/L (22-29); Chloride 107 mmol/L (96-108); Cholesterol 191 mg/dL (<200); Estimated Glomerular Filt Rate > 60; Glucose Random 97 mg/dL (60-115); HDL Cholesterol 58 mg/dL (>40); Iron 75 mcg/dL (45-160); LDL Cholesterol Calculated 120 mg/dL (<100); Percent Iron Saturation 34 % (15-50); Potassium 4.5 mmol/L (3.3-5.1); Sodium 142 mmol/L (135-145); Total Iron Binding Capacity 222 mcg/dL (228-428); Total Protein 7.2 g/dL (6.5-8.0); Triglycerides 65 mg/dL (<150); Unsaturated Iron Binding 147 ug/dL
[2024-03-03 09:53] LABS: Ferritin 183 ng/mL (20-250); Free T4 (Free Thyroxine) 0.81 ng/dL (0.71-1.85)
[2024-03-03 09:55] LABS: Prostate Specific Antigen Scr 0.66 ng/mL (<0.05-4.0); Vitamin B12 389 pg/mL (200-900)
[2024-03-11 08:08] LABS: Testosterone, Free 42.5 pg/mL (30.0-135.0); Testosterone, Total 225 ng/dL (250-1100)
== END 2024-03-03 08:16 | disposition home or self-care (01) ==
LOC: HO.LAB 08:15
PROVIDERS: PCP Internal Medicine; Visit Provider Internal Medicine
DX: E29.1 Testicular hypofunction (principal); D50.9 Iron deficiency anemia, unspecified; Z12.5 Encounter for screening for malignant neoplasm of prostate
CPT/HCPCS: 36415; 80053; 80061; 82607; 82728; 82746; 83540; 84153; 84402; 84403; 84439; 84443; 85025; 85045

== ENCOUNTER 2024-03-04 08:24 | Outpatient (AMB) | payer MEDICARE, SELFPAY ==
[2024-03-04 08:36] VITALS: BP 150/68; PULSE 73; O2SAT 98; BMI 29.2
--- NOTE | 2024-03-04 08:36 | MHC.PC.OV ---
Vital Signs 03/04/24 08:36 03/04/24 08:56 Height 5 ft 4 in Weight 170 lb BMI 29.2 BP 150/68 H 130/70 Blood Pressure Location Lt brachial Lt brachial Position Sitting Sitting Pulse 73 Pulse Source Pulse Oximeter Pulse Oximetry (%) 98 Oxygen Delivery Method Room Air Intake Visit Reasons: Hypertension Allergies No Known Allergies [No Known Allergies*] Allergy (Verified 03/04/24 08:37) Medication List - Last Reconciled 03/04/24 by Jennifer Downing MD ascorbic acid (vitamin C) 500 mg PO .QD 90 days colchicine 0.6 mg PO DIRECTED 1 day ferrous sulfate 325 mg PO DAILY fexofenadine (Janay Allergy) 180 mg PO DAILY indomethacin 50 mg PO TID lisinopril 40 mg PO DAILY 90 days omeprazole 20 mg PO DAILY 90 days psyllium husk (Fiber Therapy Laxative (psyllium husk)) 1.04 grams (2 x 0.52 gram) PO BEDTIME PRN 90 days sildenafil 50 mg PO DAILY PRN tamsulosin (Flomax) 0.4 mg PO BEDTIME 90 days tramadol 50 mg PO QID PRN 30 days triamcinolone acetonide 0.5% 1 appl topical BID 14 days [Tylenol Arthritis 650 mg PO Q8-10H PRN] Tobacco use date assessed: 10/15/23 Fall risk assessment: No Falls in past year Last assessed Fall Risk: 03/04/24 Dental Screening Dental Screen Date: 07/08/23 HPI Hypertension HPI Details 68-year-old overweight male smoker with anemia GERD hypercholesterolemia hypertension and hypogonadism last seen in September 2023. Patient's colonoscopy is up-to-date. Review of the notes has been seeing Orthopedics March 01 for the right shoulder. Diagnosis of painful arc syndrome of the right shoulder with rotator cuff arthropathy 11/23/2023 had injections patient had another injection. Review of the notes in November was seen in the Urgent [facility] for left hand pain patient was described as having gout attack was given colchicine and indomethacin. Lung cancer screening 09/09/2023 Some small nodular densities in the lungs, the largest 4 mm. No finding present at this time suggestive for malignancy. Patient has stop smoking 2018. Otherwise doing pretty good no nausea no vomiting no fevers no coughs no colds no bladder symptoms. Does have constipation. [facility] Medical History (Updated 03/04/24 @ 09:02 by Jennifer Downing MD) Anemia Diverticulosis Overweight (BMI 25.0-29.9) Swelling of right lower extremity Osteoarthritis Tubular adenoma of colon Alcohol abuse Obesity (BMI 30-39.9) GERD (gastroesophageal reflux disease) Hypercholesterolemia Hypertension Surgical History History of tonsillectomy Lipoma Family History Father CVD (cardiovascular disease) Stroke Mother No problems noted. Paternal Aunt Myocardial infarction Paternal Uncle Myocardial infarction Brother No problems noted. Sister No problems noted. Daughter No problems noted. 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 1. Little interest or pleasure in doing things: not at all 2. Feeling down, depressed, or hopeless: not at all 3. Trouble falling or staying asleep, or sleeping too much: not at all 4. Feeling tired or having little energy: not at all 5. Poor appetite or overeating: not at all 6. Feeling bad about yourself - or that you are a failure or have let yourself or your family down: not at all 7. Trouble concentrating on things, such as reading the newspaper or watching television: not at all 8. Moving or speaking so slowly that other people could have noticed. Or the opposite - being so fidgety or restless that you have been moving around a lot more than usual: not at all 9. Thoughts that you would be better off or of hurting yourself in some way: not at all Total score: 0 Depression Screening Interpretation: Negative Depression Screening Done: Yes 87589 - PHQ-9 Billing: Yes Source: Developed by Drs. Mazin Puri, Khadar Coombs and colleagues, with an educational nayana from [employer]. Thrive Questionnaire Date Thrive assessed: 07/08/23 AUDIT C Alcohol Use Questionnaire (AUDIT-C) 1. How often do you have a drink containing alcohol?: Never 3. How often do you have six or more drinks on one occasion?: Never Total Score: 0 LUIS M-7 AMB Questionnaire LUIS M-7 Date LUIS M - 7 assessed: 07/08/23 Source: Developed by Drs. Mazin Puri, Khadar Coombs and colleagues, with an educational nayana from [employer]. Physical exam (Primary Care) Vital Signs: Last Vital Signs Pulse 73 03/04/24 08:36 BP 130/70 03/04/24 08:56 Pulse Ox 98 03/04/24 08:36 Oxygen Delivery Method Room Air 03/04/24 08:36 BMI result Body Mass Index 29.2 Tobacco/Smoking Status: Tobacco use Status Tobacco use date assessed 10/15/23 03/04/24 08:37 Patient Tobacco Use Status Former Tobacco user 03/04/24 08:37 Tobacco use type Cigarette 03/04/24 08:37 e-Cigarette/Vaping Use Never Used 03/04/24 08:37 PHQ-9: PHQ-9 Score PHQ-9: Total score 0 03/04/24 08:58 Depression Screening Interpretation: Negative Thrive Assessment: Date of Thrive Assessment Date Thrive assessed 07/08/23 03/04/24 08:37 Const General: alert; No acute distress Eyes Conjunctivae: conjunctivae normal Resp Auscultation: clear to auscultation bilaterally Cardio Rate: regular rate Rhythm: regular rhythm GI Inspection: Yes normal to inspection Extrem General: Yes normal to inspection and No edema Immunizations pneumoc 20-kevin conj-dip cr(PF) 0.5 mL IM syringe Performing Provider: Jennifer Downing MD Performing Location: [facility] Administered by: TIFFANIE Maldonado on 03/04/24 09:13 Dose Route Admin Location Dispensed Lot Number Expiration Date NDC Spot Checker 0.5 mL IM Left Deltoid 0.5 mL [id number] 01/20/25 [employer] VIS Given Date VIS Provided VIS Publication Date 03/04/24 Single Vaccine 21 Eligibility Eligibility Date Funding Source Not [facility] Eligible 03/04/24 Private Assessment and Plan Assessment & Plan (1) Personal history of tobacco use: Comment: Stopped 2018August [address] scan Code(s): Z87.891 - Personal history of nicotine dependence Plan: Stop smoking in 2019. Patient is enrolled in the lung cancer screening program in August [address] scan (2) Iron deficiency anemia: Code(s): D50.9 - Iron deficiency anemia, unspecified Qualifiers: Iron deficiency anemia type: inadequate dietary iron intake Qualified Code(s): D50.8 - Other iron deficiency anemias Plan: Continue to monitor. Stable (3) Painful arc syndrome of right shoulder: Code(s): M75.101 - Unspecified rotator cuff tear or rupture of right shoulder, not specified as traumatic Plan: Patient has seen ortho and has had 2 injections (4) Hypertension: Code(s): I10 - Essential (primary) hypertension Qualifiers: Hypertension type: essential hypertension Qualified Code(s): I10 - Essential (primary) hypertension Plan: Continue with blood pressure medication. Decrease salt intake and exercise on lisinopril 40 mg once a day (5) Hypercholesterolemia: Code(s): E78.00 - Pure hypercholesterolemia, unspecified Plan: Avoid fried foods, chicken skin, eggs, butter margarine, pastries and meat. Be it pork or beef they have a lot of cholesterol diet controlled (6) GERD (gastroesophageal reflux disease): Code(s): K21.9 - Gastro-esophageal reflux disease without esophagitis Qualifiers: Esophagitis presence: without esophagitis Qualified Code(s): K21.9 - Gastro-esophageal reflux disease without esophagitis Plan: Avoid the foods that causes that usually spicy foods, tomato products, juices, coffee, soda and foods that your sensitive to. After eating do not lie down, allow 3-4 hours before in lie down. And keep the head of bed above 30 degrees to avoid the acid from going up. (7) Constipation: Code(s): K59.00 - Constipation, unspecified Plan: Three rules for constipation 1. Diet need to have a high fiber diet less of meat 2. Increase oral fluids 3. Exercise Orders: Orders Pneumococcal 20 Immunization Today Z23 - Encounter for immunization Medications: New psyllium husk (Fiber Therapy Laxative (psyllium husk)) 1.04 grams (2 x 0.52 gram) PO BEDTIME PRN 180 caps 3RF constipation 90 days K59.00 - Constipation, unspecified pneumoc 20-kevin conj-dip cr(PF) 0.5 mL IM ONCE 0.5 mL 0RF Z23 - Encounter for immunization Coding Level of Care Code Est Pt Level 4 (07092) Diagnoses Personal history of tobacco use Z87.891 Iron deficiency anemia secondary to inadequate dietary iron intake D50.8 Iron deficiency anemia type: inadequate dietary iron intake 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.101 Essential hypertension I10 Hypertension type: essential hypertension Hypercholesterolemia E78.00 Gastroesophageal reflux disease without esophagitis K21.9 Esophagitis presence: without esophagitis Constipation K59.00
[2024-03-04 08:56] VITALS: BP 130/70
== END 2024-03-04 09:15 | disposition home or self-care (01) ==
PROVIDERS: PCP Internal Medicine; Visit Provider Internal Medicine
DX: Z87.891 Personal history of nicotine dependence (principal); D50.8 Other iron deficiency anemias; M75.101 Unspecified rotator cuff tear or rupture of right shoulder, not specified as traumatic; I10 Essential (primary) hypertension; E78.00 Pure hypercholesterolemia, unspecified; K21.9 Gastro-esophageal reflux disease without esophagitis; K59.00 Constipation, unspecified; Z23 Encounter for immunization
CPT/HCPCS: 90471; 90677; 99214

== ENCOUNTER 2024-04-01 08:23 | Outpatient (AMB) | payer MEDICARE, SELFPAY ==
--- NOTE | 2024-04-01 08:26 | AM.OFFVISNUR ---
Intake Visit Reasons: flu shot Allergies No Known Allergies [No Known Allergies*] Allergy (Verified 03/04/24 08:37) Office Procedures Flu Questionnaire Does the patient have a severe egg allergy?: No Does the patient have severe life threatening allergies?: No Does the patient have a fever or illness today?: No Has the patient ever had Guillain-Edison Syndrome?: No Has the patient ever had any past reaction to a flu shot?: No Assessment & Plan Assessment & Plan Orders: Orders Influenza [id number] Immunization Today Z23 - Encounter for immunization Medications: New Fluarix Triv [id number] (PF) (flu vacc [id number] 6mos up(PF)) 0.5 mL IM ONCE 0.5 mL 0RF NS Z23 - Encounter for immunization
== END 2024-04-01 08:37 | disposition home or self-care (01) ==
PROVIDERS: PCP Internal Medicine; Visit Provider Internal Medicine
DX: Z23 Encounter for immunization (principal)

== ENCOUNTER → 2024-04-01 08:23 | Outpatient (BNVA) | payer MEDICARE, SELFPAY | PROVIDERS: PCP Internal Medicine; Visit Provider Internal Medicine | DX: Z23 Encounter for immunization (principal) | CPT/HCPCS: 90471; 90656 ==

== ENCOUNTER 2024-05-31 08:08 | Outpatient (AMB) | payer MEDICARE, SELFPAY ==
--- NOTE | 2024-05-31 08:35 | MHC.OFFVIS ---
Intake Visit Reasons: right shoulder injection, last inj 03/01/24 Intake Note: Mitchell is a 68 year old right hand dominant male who presents today for a repeat injection in his right shoulder, last injection 03/01/24. Patient reports his last injection gave him about 3 months of relief and would like to repeat. Allergies No Known Allergies [No Known Allergies*] Allergy (Verified 05/31/24 08:43) HPI HPI right shoulder injection, last inj 03/01/24: Details: 68-year-old right-hand dominant male who presents in the office today for a follow-up of right shoulder pain. I last saw the patient in the office on 03/01/24, when he was given a cortisone injection in the right shoulder. While in the office today, the patient reports his last cortisone injection in the right shoulder provided him about 3 months of relief. He would like to have a repeat injection today. [facility] Medical History (Updated 03/04/24 @ 09:02 by Jennifer Downing MD) Anemia Diverticulosis Overweight (BMI 25.0-29.9) Swelling of right lower extremity Osteoarthritis Tubular adenoma of colon Alcohol abuse Obesity (BMI 30-39.9) GERD (gastroesophageal reflux disease) Hypercholesterolemia Hypertension Surgical History History of tonsillectomy Lipoma Family History Father CVD (cardiovascular disease) Stroke Mother No problems noted. Paternal Aunt Myocardial infarction Paternal Uncle Myocardial infarction Brother No problems noted. Sister No problems noted. Daughter No problems noted. 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 Abduction to 45 degrees. Pain with cross-body reach. 3/5 strength with empty can. Negative drop arm. NVI. Office Procedures AMB Joint Injection/Aspiration Joint Injection/Aspiration Primary Site: right shoulder Prep: site was prepped using aseptic technique, ethochloride spray was applied and injection warnings given Injected: 80 mg of, DepoMedrol, with 8 mL of (2% plain lido ) and in the subcromial space Approach Used: posterolateral Procedure: The patient tolerated the procedure well, but had some pain with the injection and there was some relief with the local anesthesia Coding 06010 - Large joint Procedure code (CPT) selection complete Assessment & Plan Assessment & Plan (1) Painful arc syndrome of right shoulder: Code(s): M75.101 - Unspecified rotator cuff tear or rupture of right shoulder, not specified as traumatic Category: Medical (2) Rotator cuff arthropathy of right shoulder: Code(s): M12.811 - Other specific arthropathies, not elsewhere classified, right shoulder Category: Medical Plan Mr. Navarrete is a 68-year-old right-hand dominant male who presents in the office today for a follow-up of right shoulder pain. I last saw the patient in the office on 03/01/24, when he was given a cortisone injection in the right shoulder. While in the office today, the patient reports his last cortisone injection in the right shoulder provided him about 3 months of relief. He would like to have a repeat injection today. The patient was offered a cortisone injection in the right shoulder with 80 mg of Depo-Medrol. The patient was explained the risks, benefits, and alternatives to receiving this injection. After receiving consent for the injection, the patient had the procedure done while in the office today. The patient tolerated the procedure well with no complications. Follow-up will be PRN, or sooner if needed. Patient Instructions: Scribed by Taylor Lieberman certified court/medical interpreter, for Susan Dueñas PA-C on 05/31/24 at 8:52 am EST. Coding Level of Care Code Est Pt Level 3 (65995) Diagnoses 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.101 Rotator cuff arthropathy of right shoulder M12.811 CPT Codes Coding - 77406 Large joint: 71571 - Large joint ([id number])
== END 2024-05-31 08:50 | disposition home or self-care (01) ==
PROVIDERS: PCP Internal Medicine; Visit Provider Physician Assistant
DX: M75.101 Unspecified rotator cuff tear or rupture of right shoulder, not specified as traumatic (principal); M12.811 Other specific arthropathies, not elsewhere classified, right shoulder
CPT/HCPCS: 20610; 99213

== ENCOUNTER → 2024-05-31 08:08 | Outpatient (BNVA) | payer MEDICARE, SELFPAY | PROVIDERS: PCP Internal Medicine; Visit Provider Physician Assistant | DX: M75.101 Unspecified rotator cuff tear or rupture of right shoulder, not specified as traumatic (principal); M12.811 Other specific arthropathies, not elsewhere classified, right shoulder | CPT/HCPCS: 20610; 99212; J1010; J2003 ==

== ENCOUNTER → 2024-07-28 10:11 | Outpatient (BNVA) | payer MEDICARE, SELFPAY | PROVIDERS: PCP Internal Medicine; Visit Provider Internal Medicine ==

== ENCOUNTER 2024-08-30 08:08 | Outpatient (AMB) | payer MEDICARE, SELFPAY ==
--- NOTE | 2024-08-30 08:10 | A.OFFVIS_ITS ---
Intake Visit Reasons: (80) right shoulder injection, last inj 05/31/24 Intake Note: Mitchell is a 68 year old right hand dominant male who presents today for a repeat injection in his right shoulder, last injection 05/31/24. Patient reports last injection gave him relief and would like to repeat. Allergies No Known Allergies [No Known Allergies*] Allergy (Verified 08/30/24 08:21) HPI HPI (80) right shoulder injection, last inj 05/31/24: Details: Mr. Navarrete is a 68-year-old right-hand dominant male who presents to the office today for repeat cortisone injection in the right shoulder. Last injection was 05/31/2024. He reports that his last injection gave him relief up until about a month ago. He would like to repeat injection today. [facility] Medical History (Updated 07/28/24 @ 11:05 by Jennifer Downing MD) Personal history of tobacco use Anemia Diverticulosis Overweight (BMI 25.0-29.9) Swelling of right lower extremity Osteoarthritis Tubular adenoma of colon Alcohol abuse GERD (gastroesophageal reflux disease) Hypercholesterolemia Hypertension Surgical History History of colonoscopy History of excision of lesion History of tonsillectomy Family History Father CVD (cardiovascular disease) Stroke Mother No problems noted. Paternal Aunt Myocardial infarction Paternal Uncle Myocardial infarction Brother No problems noted. Sister No problems noted. Daughter No problems noted. 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 Abduction to 45 degrees. Pain with cross-body reach. 3/5 strength with empty can. Negative drop arm. NVI. Office Procedures AMB Joint Injection/Aspiration Joint Injection/Aspiration Primary Site: right shoulder Prep: site was prepped using aseptic technique, ethochloride spray was applied and injection warnings given Injected: 80 mg of, DepoMedrol, with 8 mL of (2% plain lidocaine) and in the subcromial space Approach Used: posterolateral Procedure: The patient tolerated the procedure well, but had some pain with the injection and there was some relief with the local anesthesia Coding - Large joint Procedure code (CPT) selection complete Assessment & Plan Assessment & Plan (1) Painful arc syndrome of right shoulder: Code(s): M75.101 - Unspecified rotator cuff tear or rupture of right shoulder, not specified as traumatic Category: Medical (2) Rotator cuff arthropathy of right shoulder: Code(s): M12.811 - Other specific arthropathies, not elsewhere classified, right shoulder Category: Medical Plan Mr. Navarrete is a 68-year-old right-hand dominant male who presents to the office today for repeat cortisone injection in the right shoulder. Last injection was 05/31/2024. He reports that his last injection gave him relief up until about a month ago. He would like to repeat injection today. The patient was offered a cortisone injection in the right shoulder with 8 mg of DepoMedrol. The patient was explained the risks, benefits, and alternatives to receiving this injection. After receiving consent for the injection, the patient had the procedure done while in the office today. The patient tolerated the procedure well with no complications. Follow-up will be p.r.n., or sooner if needed Coding Level of Care Code Est Pt Level 3 (53954) Diagnoses 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.101 Rotator cuff arthropathy of right shoulder M12.811 CPT Codes Coding - Large joint: 86074 - Large joint ([id number])
--- OUTSIDE RECORDS SUMMARY | 2024-08-30 08:35 | XMS_ITS | Patient Health Record ---
Author Organization [facility] Address [address] [place] [phone] Care Team Providers Care Floors Buffer Name Role Phone Po Jennifer ECHEVERRIA Primary Care Provider UnavailAntoni Colon Jr Unavailable Quita ECHEVERRIA, Klaus Unavailable Unavailable Reason For Referral No Information Plan Of Treatment No Information Insurance Providers Payer Name Payer Address Payer Phone Subscriber Number Group Number Insured Name Patient Relationship to Insured Coverage Start Date Coverage End Date [facility] [address] [place] [address] [id number] JREMAINE ADAIR Self - patient is the insured
== END 2024-08-30 08:21 | disposition home or self-care (01) ==
LOC: HO.HOS 08:09
PROVIDERS: PCP Internal Medicine; Visit Provider Physician Assistant
DX: M75.101 Unspecified rotator cuff tear or rupture of right shoulder, not specified as traumatic (principal); M12.811 Other specific arthropathies, not elsewhere classified, right shoulder
CPT/HCPCS: 20610; 99213

== ENCOUNTER → 2024-08-30 08:08 | Outpatient (BNVA) | payer MEDICARE, SELFPAY | PROVIDERS: PCP Internal Medicine; Visit Provider Physician Assistant | DX: M75.101 Unspecified rotator cuff tear or rupture of right shoulder, not specified as traumatic (principal); M12.811 Other specific arthropathies, not elsewhere classified, right shoulder | CPT/HCPCS: 20610; 99212; J1010; J2003 ==

== ENCOUNTER 2024-10-28 08:56 | Outpatient (AMB) | payer MEDICARE, SELFPAY ==
[2024-10-28 08:59] VITALS: BP 134/62; PULSE 64; O2SAT 97; BMI 30.6
--- NOTE | 2024-10-28 08:59 | A.OFFPC_ITS ---
Vital Signs 10/28/24 08:59 Height 5 ft 4 in Weight 178 lb BMI 30.6 BP 134/62 Blood Pressure Location Lt brachial Position Sitting Pulse 64 Pulse Source Pulse Oximeter Pulse Oximetry (%) 97 Oxygen Delivery Method Room Air Intake Visit Reasons: BRBPR Allergies No Known Allergies [No Known Allergies*] Allergy (Verified 10/28/24 08:59) Medication List - Last Reconciled 10/28/24 by Jennifer Downing MD ascorbic acid (vitamin C) 500 mg PO .QD 90 days ferrous sulfate 325 mg PO DAILY fexofenadine (Janay Allergy) 180 mg PO DAILY lisinopril 40 mg PO DAILY 90 days omeprazole 20 mg PO DAILY 90 days psyllium husk (Fiber Therapy Laxative (psyllium husk)) 1.04 grams (2 x 0.52 gram) PO BEDTIME PRN 90 days sildenafil 100 mg PO DAILY PRN tramadol 50 mg PO QID PRN 30 days triamcinolone acetonide 0.5% 1 appl topical BID 14 days [Tylenol Arthritis 650 mg PO Q8-10H PRN] Tobacco use date assessed: 10/28/24 Fall risk assessment: No Falls in past year Last assessed Fall Risk: 10/28/24 Dental Screening Dental Screen Date: 07/08/23 [facility] Medical History (Updated 10/28/24 @ 09:34 by Jennifer Downing MD) Multiple joint pain Hematuria Right shoulder pain Weak urinary stream Rotator cuff arthropathy of right shoulder Iron deficiency anemia Personal history of tobacco use Anemia Diverticulosis Overweight (BMI 25.0-29.9) Swelling of right lower extremity Osteoarthritis Tubular adenoma of colon Alcohol abuse GERD (gastroesophageal reflux disease) Hypercholesterolemia Hypertension Surgical History History of colonoscopy History of excision of lesion History of tonsillectomy Family History Father CVD (cardiovascular disease) Stroke Mother No problems noted. Paternal Aunt Myocardial infarction Paternal Uncle Myocardial infarction Brother No problems noted. Sister No problems noted. Daughter No problems noted. 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 1. Little interest or pleasure in doing things: not at all 2. Feeling down, depressed, or hopeless: not at all 3. Trouble falling or staying asleep, or sleeping too much: not at all 4. Feeling tired or having little energy: more than half the days 5. Poor appetite or overeating: not at all 6. Feeling bad about yourself - or that you are a failure or have let yourself or your family down: not at all 7. Trouble concentrating on things, such as reading the newspaper or watching television: not at all 8. Moving or speaking so slowly that other people could have noticed. Or the opposite - being so fidgety or restless that you have been moving around a lot more than usual: several days 9. Thoughts that you would be better off or of hurting yourself in some way: not at all Total score: 3 Depression Screening Interpretation: Positive Depression Screening Done: Yes Source: Developed by Drs. Mazin Puri, Khadar Coombs and colleagues, with an educational nayana from [email or web address]. Thrive Questionnaire Date Thrive assessed: 07/28/24 LUIS M-7 AMB Questionnaire LUIS M-7 Date LUIS M - 7 assessed: 07/28/24 Source: Developed by Drs. Mazin Puri, Khadar Coombs and colleagues, with an educational nayana from [email or web address]. Physical exam (Primary Care) Vital Signs: Last Vital Signs Pulse 64 10/28/24 08:59 BP 134/62 10/28/24 08:59 Pulse Ox 97 10/28/24 08:59 Oxygen Delivery Method Room Air 10/28/24 08:59 BMI result Body Mass Index 30.6 Tobacco/Smoking Status: Tobacco use Status Tobacco use date assessed 10/28/24 10/28/24 09:05 Patient Tobacco Use Status Former Tobacco user 10/28/24 09:05 Tobacco use type Cigarette 10/28/24 09:05 e-Cigarette/Vaping Use Never Used 10/28/24 09:05 PHQ-9: PHQ-9 Score PHQ-9: Total score 3 10/28/24 09:33 Depression Screening Interpretation: Positive Thrive Assessment: Date of Thrive Assessment Date Thrive assessed 07/28/24 10/28/24 09:05 Const General: alert; No acute distress Eyes Conjunctivae: conjunctivae normal Resp Auscultation: clear to auscultation bilaterally Cardio Rate: regular rate Rhythm: regular rhythm GI Inspection: Yes normal to inspection Extrem General: Yes normal to inspection and No edema Coding Level of Care Code Est Pt Level 4 (37092) Complex EM visit Add On G2211 Diagnoses BRBPR (bright red blood per rectum) K62.5 Tubular adenoma of colon D12.6 Hypogonadism in male E29.1 Personal history of tobacco use Z87.891 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.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 Benign prostatic hyperplasia with incomplete bladder emptying N40.1; R39.14 Lower urinary tract symptom detail: incomplete bladder emptying Lower urinary tract symptom presence: symptoms present Gastroesophageal reflux disease without esophagitis K21.9 Esophagitis presence: without esophagitis Hypercholesterolemia E78.00 Essential hypertension I10 Hypertension type: essential hypertension Compression fracture of T11 vertebra S22.080A Assessment & Plan Assessment & Plan (1) BRBPR (bright red blood per rectum): Code(s): K62.5 - Hemorrhage of anus and rectum Category: Medical Plan: Patient is supposed to be schedule with the Gastroenterology but I do not see any follow-up (2) Tubular adenoma of colon: Comment: (TAs on 2010 scope, normal 2017 scope) 2019 Code(s): D12.6 - Benign neoplasm of colon, unspecified Category: Medical Plan: Patient's schedule it this year for colonoscopy reminded the patient (3) Hypogonadism in male: Code(s): E29.1 - Testicular hypofunction Category: Medical Plan: Discussed about hypogonadism and referral to Urology (4) Personal history of tobacco use: Comment: (onset 11yo, 1ppd x 48yrs, 40pyh - quit ?2012) Code(s): Z87.891 - Personal history of nicotine dependence Category: Social Hx Plan: Discussed about lung cancer screening program (5) Painful arc syndrome of right shoulder: Code(s): M75.101 - Unspecified rotator cuff tear or rupture of right shoulder, not specified as traumatic Category: Medical Plan: Patient is being followed up by ortho and August had some injections done (6) BPH (benign prostatic hyperplasia): Code(s): N40.0 - Benign prostatic hyperplasia without lower urinary tract symptoms Category: Medical Qualifiers: Lower urinary tract symptom detail: incomplete bladder emptying Lower urinary tract symptom presence: symptoms present Qualified Code(s): N40.1 - Benign prostatic hyperplasia with lower urinary tract symptoms; R39.14 - Feeling of incomplete bladder emptying Plan: Stable (7) GERD (gastroesophageal reflux disease): Code(s): K21.9 - Gastro-esophageal reflux disease without esophagitis Category: Medical Qualifiers: Esophagitis presence: without esophagitis Qualified Code(s): K21.9 - Gastro-esophageal reflux disease without esophagitis Plan: Avoid the foods that causes that usually spicy foods, tomato products, juices, coffee, soda and foods that your sensitive to. After eating do not lie down, allow 3-4 hours before in lie down. And keep the head of bed above 30 degrees to avoid the acid from going up. (8) Hypercholesterolemia: Code(s): E78.00 - Pure hypercholesterolemia, unspecified Category: Medical Plan: Avoid fried foods, chicken skin, eggs, butter margarine, pastries and meat. Be it pork or beef they have a lot of cholesterol LDL goal of less than 130 and triglyceride of less than 150 diet controlled (9) Hypertension: Code(s): I10 - Essential (primary) hypertension Category: Medical Qualifiers: Hypertension type: essential hypertension Qualified Code(s): I10 - Essential (primary) hypertension Plan: Continue with blood pressure medication. Decrease salt intake and exercise on lisinopril 40 mg once a day (10) Compression fracture of T11 vertebra: Comment: CT scan 2021, states 08/2021 fall stairs Code(s): S22.080A - Wedge compression fracture of T11-T12 vertebra, initial encounter for closed fracture Category: Medical Plan: Continue with pain medication as needed Plan History of Present Illness The patient is a 68-year-old male presenting for follow-up regarding hypertension management and other chronic conditions, as well as participation in recommended screening tests. He has a medical history significant for essential hypertension, hypercholesterolemia, GERD, osteoarthritis, and BPH. His hypertension is managed with Lisinopril 40 mg daily. During the previous blood panel in February, the patient exhibited mild iron deficiency anemia, though other functions such as renal, liver, and thyroid were normal. Additionally, blood glucose levels were normal, and PSA results were within the standard range. The patient's testosterone levels have been noted to be low, but he has not yet been referred to a urologist for further evaluation and management. He was last seen by orthopedics for his right shoulder arthralgia in August 2023 for repeat steroidal injections. A history of smoking necessitates a lung cancer screening CAT scan, which the patient confirms was last completed in August 2023. His previous colonoscopy, performed in April 2020, identified tubular adenomas, which now require surveillance through a follow-up colonoscopy. Health Maintenance - Blood pressure management with Lisinopril 40 mg daily - Blood tests showed cholesterol LDL at 120 mg/dL, considered satisfactory - PSA levels are within normal limits - Last blood work in February revealed mild iron deficiency anemia, follow-up blood tests suggested in January - Recommendation for colonoscopy, discussed due to history of tubular adenomas (last done April 2020) - Referral for CAT scan of the chest for lung screening overdue (last done August 2023) - Vaccination history indicates the patient is up-to-date except RSV, discussed for potential administration Social History - Reports history of smoking - Discussed desire for work adjustments due to arthritis symptoms; interested in reducing work hours through PFMLA - Engaged in discussions regarding diet and beverage intake Review of Systems - Gastrointestinal: Reports stable GERD. - Musculoskeletal: Reports right shoulder pain treated with steroid injections. - Endocrine: Reports low testosterone levels. - Sexual Health: Reports erectile dysfunction. - Respiratory: Due for lung cancer screening owing to smoking history. Physical Exam Results - Labs: Hemoglobin 13.3 g/dL in February indicating mild anemia. Cholesterol LDL at 120 mg/dL. - Tests and Diagnostics: Colonoscopy last done in April 2020 revealed tubular adenomas. CAT scan of the chest last done in August 2023. Plan During the visit, we discussed addressing hypertension with continued Lisinopril administration and monitoring electrolytes as well as renal function given prior satisfactory outcomes. Acknowledgment of low testosterone levels has directed plans for referral to a urologist. The patient was advised on testosterone replacement options and doses of Viagra were prescribed to address erectile dysfunction caused by low testosterone. Chronic management also includes ensuring follow-up screenings in light of the tubular adenomas history and a planned lung cancer screening via CAT scan. The patient indicated that prior steroid injections for osteoarthritis have been helpful and will continue to liaise with orthopedics as required. Additionally, we explored the procedure for the PFMLA application process to permit adjusted work schedules corresponding to reported musculoskeletal issues. Patient was informed and verbally consented to the use of an ambient scribe for clinic note documentation during this visit. Discussion Notes We discussed in detail the patient's management and treatment options for his primary complaints. I recommended that he continue Lisinopril for hypertension, stressing the importance of routine blood pressure and electrolyte checks to manage potential fluctuations within normal ranges. The conversation included a referral to a urologist due to persistently low testosterone levels, with emphasis on the potential benefits and risks associated with testosterone replacement therapy. Viagra was prescribed for erectile dysfunction after a thorough discussion of its use, dosage, and expected effects. Preventative measures remain a focus, and I reviewed the need for a repeat colonoscopy, given the findings from the last one, as well as a follow-up CAT scan for lung cancer screening attributed to past smoking. Lastly, we talked about the logistics of PFMLA for work adjustments due to arthritis symptoms. Overall, the importance of proactive screening, medication adherence, and monitoring was emphasized throughout the visit. Patient Instructions - Continue taking Lisinopril 40 mg daily as prescribed for blood pressure management. - Follow up with urology referral for low testosterone evaluation. - Schedule and complete the overdue colonoscopy based on the previous findings. - Coordinate lung CAT scan for cancer screening due to smoking history. - Adhere to the administration guidelines provided for Viagra. - Obtain the PFMLA form from [employer] and schedule a follow-up for completion. - Stay hydrated, adhere to a balanced diet, and maintain a healthy lifestyle. - Update vaccinations as discussed, particularly regarding RSV. - Monitor current ailments and return for follow-up as advised. Orders: Referrals Gastroenterology Referral D12.6 - Benign neoplasm of colon, unspecified, K62.5 - Hemorrhage of anus and rectum Urology Referral E29.1 - Testicular hypofunction Lung Cancer Screening Referral Z87.891 - Personal history of nicotine dependence Medications: New sildenafil administer 30 minutes to 4 hours before activity 100 mg PO DAILY PRN 14 tabs 0RF sexual activity E29.1 - Testicular hypofunction Refilled lisinopril 40 mg PO DAILY 90 tabs 2RF 90 days I10 - Essential (primary) hypertension
--- OUTSIDE RECORDS SUMMARY | 2024-10-28 09:10 | XMS_ITS | Patient Health Record ---
Author Organization [facility] Address [address] [place] [address] Care Team Providers Care Rubber Printing Machine Operator Name Role Phone Jennifer Downing MD Primary Care Provider Antoni Grace Jr Unavailable Quita ECHEVERRIA, Klaus Unavailable Unavailable Reason For Referral No Information Plan Of Treatment Next Appt Details Provider Name:Antoni loera Jr, 12/12/2024 09:20:00 AM, [address], [address], [place], [address], Insurance Providers Payer Name Payer Address Payer Phone Subscriber Number Group Number Insured Name Patient Relationship to Insured Coverage Start Date Coverage End Date [employer] [address] [place] [phone] [id number] JERMAINE ADAIR Self - patient is the insured
== END 2024-10-28 09:47 | disposition home or self-care (01) ==
LOC: HO.HMCH 08:56
PROVIDERS: PCP Internal Medicine; Visit Provider Internal Medicine
DX: K62.5 Hemorrhage of anus and rectum (principal); D12.6 Benign neoplasm of colon, unspecified; E29.1 Testicular hypofunction; S22.080A Wedge compression fracture of T11-T12 vertebra, initial encounter for closed fracture; Z87.891 Personal history of nicotine dependence; M75.101 Unspecified rotator cuff tear or rupture of right shoulder, not specified as traumatic; N40.1 Benign prostatic hyperplasia with lower urinary tract symptoms; R39.14 Feeling of incomplete bladder emptying; K21.9 Gastro-esophageal reflux disease without esophagitis; E78.00 Pure hypercholesterolemia, unspecified; I10 Essential (primary) hypertension

== ENCOUNTER → 2024-10-28 08:56 | Outpatient (BNVA) | payer MEDICARE, SELFPAY | PROVIDERS: PCP Internal Medicine; Visit Provider Internal Medicine | DX: K62.5 Hemorrhage of anus and rectum (principal); D12.6 Benign neoplasm of colon, unspecified; E29.1 Testicular hypofunction; M75.101 Unspecified rotator cuff tear or rupture of right shoulder, not specified as traumatic; N40.1 Benign prostatic hyperplasia with lower urinary tract symptoms; R39.14 Feeling of incomplete bladder emptying; K21.9 Gastro-esophageal reflux disease without esophagitis; E78.00 Pure hypercholesterolemia, unspecified; I10 Essential (primary) hypertension; S22.080A Wedge compression fracture of T11-T12 vertebra, initial encounter for closed fracture; X58.XXXA Exposure to other specified factors, initial encounter; Y93.9 Activity, unspecified; Y92.9 Unspecified place or not applicable; Y99.9 Unspecified external cause status; Z87.891 Personal history of nicotine dependence | CPT/HCPCS: 96127; 99212 ==

== ENCOUNTER 2024-12-02 09:15 | Outpatient (AMB) | payer MEDICARE, SELFPAY ==
--- NOTE | 2024-12-02 09:17 | A.OFFVIS_ITS ---
Intake Visit Reasons: Right shoulder injection - last inj (80) 08/30/24 Intake Note: Mitchell is a 68 year old right hand dominant male who presents today for a repeat injection in his right shoulder, last injection 08/30/24. Patient reports his last injection gave him relief and would like to repeat. Allergies No Known Allergies [No Known Allergies*] Allergy (Verified 12/02/24 09:22) HPI HPI Right shoulder injection - last inj (80) 08/30/24: Details: Mr. Navarrete is a 68-year-old male who presents to the office today for repeat cortisone injection in the right shoulder. Last cortisone injection was 08/30/2024. He gets great relief from the injections and would like to repeat today. [facility] Medical History (Updated 10/28/24 @ 09:34 by Jennifer Downing MD) Multiple joint pain Hematuria Right shoulder pain Weak urinary stream Rotator cuff arthropathy of right shoulder Iron deficiency anemia Personal history of tobacco use Anemia Diverticulosis Overweight (BMI 25.0-29.9) Swelling of right lower extremity Osteoarthritis Tubular adenoma of colon Alcohol abuse GERD (gastroesophageal reflux disease) Hypercholesterolemia Hypertension Surgical History History of colonoscopy History of excision of lesion History of tonsillectomy Family History Father CVD (cardiovascular disease) Stroke Mother No problems noted. Paternal Aunt Myocardial infarction Paternal Uncle Myocardial infarction Brother No problems noted. Sister No problems noted. Daughter No problems noted. 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 Abduction to 45 degrees. Pain with cross-body reach. 3/5 strength with empty can. Negative drop arm. NVI. Office Procedures AMB Joint Injection/Aspiration Joint Injection/Aspiration Primary Site: right shoulder Prep: site was prepped using aseptic technique, ethochloride spray was applied and injection warnings given Injected: 80 mg of, DepoMedrol, with 8 mL of (2% plain lidocaine) and in the subcromial space Approach Used: posterolateral Procedure: The patient tolerated the procedure well, but had some pain with the injection and there was some relief with the local anesthesia Coding - Large joint Procedure code (CPT) selection complete Assessment & Plan Assessment & Plan (1) Painful arc syndrome of right shoulder: Code(s): M75.101 - Unspecified rotator cuff tear or rupture of right shoulder, not specified as traumatic Category: Medical Plan The patient was offered a cortisone injection in the right shoulder with 80 mg of DepoMedrol. The patient was explained the risks, benefits, and alternatives to receiving this injection. After receiving consent for the injection, the patient had the procedure done while in the office today. The patient tolerated the procedure well with no complications. 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
--- OUTSIDE RECORDS SUMMARY | 2024-12-02 09:38 | XMS_ITS | Patient Health Record ---
Author Organization [facility] Address [address] [place] [address] Care Team Providers Care Silk Screen Etcher Name Role Phone Jennifer Downing MD Primary Care Provider Antoni Grace Jr Unavailable Quita ECHEVERRIA, Klaus Unavailable Unavailable Reason For Referral No Information Plan Of Treatment Next Appt Details Provider Name:Antoni loera Jr, 12/12/2024 09:20:00 AM, [address], [address], [place], [address], Insurance Providers Payer Name Payer Address Payer Phone Subscriber Number Group Number Insured Name Patient Relationship to Insured Coverage Start Date Coverage End Date [employer] [employer] [address] [place] [phone] [id number] JERMAINE ADAIR Self - patient is the insured
== END 2024-12-02 09:22 | disposition home or self-care (01) ==
LOC: HO.HOS 09:16
PROVIDERS: PCP Internal Medicine; Visit Provider Physician Assistant
DX: M75.101 Unspecified rotator cuff tear or rupture of right shoulder, not specified as traumatic (principal)
CPT/HCPCS: 20610; 99213

== ENCOUNTER → 2024-12-02 09:15 | Outpatient (BNVA) | payer MEDICARE, SELFPAY | PROVIDERS: PCP Internal Medicine; Visit Provider Physician Assistant | DX: M25.511 Pain in right shoulder (principal); M75.101 Unspecified rotator cuff tear or rupture of right shoulder, not specified as traumatic | CPT/HCPCS: 20610; 99212; J1010; J2003 ==

== ENCOUNTER 2025-01-23 08:28 | Outpatient (AMB) | payer MEDICARE, SELFPAY ==
--- NOTE | 2025-01-23 08:34 | A.OFFVIS_ITS ---
Intake Visit Reasons: testicular hypofunction Intake Note: Patient is present for TESTICULAR HYPOFUNCTION Urology Medication:NONE Antibiotic Allergy:NONE Blood Thinner:NONE Rag Willow Operator Required: No Allergies No Known Allergies (No Known Allergies*) Allergy (Verified 01/23/25 08:45) Medication List - Last Reconciled 01/23/25 by DUNCAN Jones ascorbic acid (vitamin C) 500 mg PO .QD 90 days ferrous sulfate 325 mg PO DAILY fexofenadine (Janay Allergy) 180 mg PO DAILY lisinopril 40 mg PO DAILY 90 days psyllium husk (Fiber Therapy Laxative (psyllium husk)) 1.04 grams (2 x 0.52 gram) PO BEDTIME PRN 90 days tadalafil (Cialis) 5 mg PO DAILY 90 days tadalafil (Cialis) 10 mg PO .PRN PRN 30 days tramadol 50 mg PO QID PRN 30 days triamcinolone acetonide 0.5% 1 appl topical BID 14 days [Tylenol Arthritis 650 mg PO Q8-10H PRN] HPI Comments Details: Mitchell is a pleasant 69 year old male patient of Dr. Downing. He presents to the office today for follow-up. Of note, patient was previously seen approximately 2 years ago for microscopic hematuria in the setting of nicotine dependence. He had underwent in office cystoscopy with Dr. Cannon 09/11 that noted 2 small areas of angio keratosis within the bladder, enlarged prostate, and cellules at which time recommendations were made for repeat in office cystoscopy in 6 months. However, in discussion with the patient today he reports he is unsure as to why he never followed up. He reports having followed up with his PCP and discussing ongoing issues with ED at which time his testosterone labs were drawn and noted to be low in recommendations were made for referral for further assessment evaluation. These results were reviewed and communicated with the patient today. Testosterone: 08/15 132, 03/15 225 Free testosterone: 03/15 42.5 PSA: 09/09 0.29, 01/10 0.60, 08/15 0.42, 03/15 0.66 We did discussed at length potential causes of hypogonadism as well as further treatment options and risks and benefits of these treatment options. We discussed the importance of following up as planned. In office urinalysis results reviewed with the patient today 3+ microscopic hematuria. He does continue to report nicotine dependence. We discussed repeat in office cystoscopy as previously recommended. When asked he denies any bothersome urinary issues. He denies urinary urgency, urinary frequency, incontinence, nocturia, hematuria, dysuria, foul smelling urine, changes to urinary stream, flank pain, fever, and or chills. He is happy with his current voiding parameters. However, in review of patient's chart it does appear he was previously prescribed Flomax however he does not feel he has any bothersome urinary issues. We discussed potential causes of microscopic hematuria. All questions were answered. He otherwise offers no other issues or concerns at this time. PREVIOUS OFFICE NOTE: Microscopic hematuria Discovered through PCP workup 30 pack per day smoking history cease 20 years ago Denies any chemical exposure in the workplace Imaging - 08/14 - CT scan with normal kidneys in ureter, NAD Cytology - 09/11 negative Cystoscopy - 09/11 tiny areas of angio keratosis PFSH Medical History Multiple joint pain Hematuria Right shoulder pain Weak urinary stream Rotator cuff arthropathy of right shoulder Iron deficiency anemia Personal history of tobacco use Anemia Diverticulosis Overweight (BMI 25.0-29.9) Swelling of right lower extremity Osteoarthritis Tubular adenoma of colon Alcohol abuse GERD (gastroesophageal reflux disease) Hypercholesterolemia Hypertension Surgical History History of colonoscopy History of excision of lesion History of tonsillectomy Family History Father CVD (cardiovascular disease) Stroke Mother No problems noted. Paternal Aunt Myocardial infarction Paternal Uncle Myocardial infarction Brother No problems noted. Sister No problems noted. Daughter No problems noted. 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 Cognitive needs: No Hearing needs: No Vision needs: Yes (glasses) Review of Systems Const All systems reviewed & are unremarkable except as noted in HPI and below Reports no additional complaints Eyes Reports no additional complaints ENT Reports no additional complaints Card Reports no additional complaints Resp Reports no additional complaints GI Reports no additional complaints Reports as per HPI Musc Reports no additional complaints Neuro Reports no additional complaints Psych Reports no additional complaints Endo Reports no additional complaints Earl/Lymph Reports no additional complaints Aller/Immun Reports no additional complaints Physical Exam Const General: cooperative, healthy appearing, comfortable, no acute distress, well developed, alert and awake Orientation/consciousness: patient oriented x3 Limitations: no limitations HEENT Head: Yes normal to inspection, Yes normocephalic and Yes atraumatic Ears: hearing grossly normal bilaterally Eyes General: appearance normal, both eyes and all related structures Neck Neck: Yes normal visual inspection and Yes trachea midline Chest Chest palpation & inspection: normal inspection of the chest Resp Effort & Inspection: normal respiratory effort and able to speak in complete sentences Cardio Rate: regular rate GI Inspection: Yes normal to inspection General: Yes no CVA tenderness Back/Spine/Pelvis Back: no CVA tenderness Neuro General: patient oriented x3 Extrem General: Yes normal to inspection Psych Appearance: grossly normal Mental Status: mental status grossly normal Speech and movement: Normal speech and movement present and Clear speech present Affect: normal affect Attitude: cooperative Thought process: Normal thought process present Thought content: Normal thought content present Insight: Fair insight present (Psych) Judgement: Fair judgement present (Psych) Results AMB Urinalysis, Automated UA Leukoctes 0 Delia/uL Last Edit by LOR Avila on 01/23/25 08:47 UA Nitrite Negative Last Edit by LOR Avila on 01/23/25 08:47 UA Urobilinogen 0.2 mg/dL Last Edit by LOR Avila on 01/23/25 08:4 7 UA Protein 30 mg/dL Last Edit by LOR Avila on 01/23/25 08:47 UA pH 5.5 Last Edit by LOR Avila on 01/23/25 08:47 UA Blood 200 Yasmany/uL Last Edit by LOR Avila on 01/23/25 08:47 UA Specific [place] 1.030 Last Edit by LOR Avila on 01/23/25 08: 47 UA Ketone Negative Last Edit by LOR Avila on 01/23/25 08:47 UA Bilirubin 1 mg/dL Last Edit by LOR Avila on 01/23/25 08:47 UA Glucose 0 mg/dL Last Edit by LOR Avila on 01/23/25 08:47 Results Reviewed Results Reviewed: Laboratory Last Values Urine pH (Auto) 5.5 01/23/25 08:46 Specific [place] (Auto) 1.030 01/23/25 08:46 Urine Protein (Auto) 30 mg/dL 01/23/25 08:46 Glucose (UA)(Auto) 0 mg/dL 01/23/25 08:46 Urine Ketones (Auto) Negative 01/23/25 08:46 Urine Blood (Auto) 200 Yasmany/uL 01/23/25 08:46 Urine Nitrite (Auto) Negative 01/23/25 08:46 Urine Bilirubin (Auto) 1 mg/dL 01/23/25 08:46 Urine Urobilinogen (Auto) 0.2 mg/dL 01/23/25 08:46 Leukocyte Esterase (Auto) 0 Delia/uL 01/23/25 08:46 Assessment & Plan Assessment & Plan (1) Microscopic hematuria: Code(s): R31.29 - Other microscopic hematuria Category: Medical (2) BPH (benign prostatic hyperplasia): Code(s): N40.0 - Benign prostatic hyperplasia without lower urinary tract symptoms Category: Medical Qualifiers: Lower urinary tract symptom detail: incomplete bladder emptying Lower urinary tract symptom presence: symptoms present Qualified Code(s): N40.1 - Benign prostatic hyperplasia with lower urinary tract symptoms; R39.14 - Feeling of incomplete bladder emptying (3) Erectile dysfunction: Code(s): N52.9 - Male erectile dysfunction, unspecified Category: Medical Plan In office urinalysis results reviewed with the patient today; as noted above; will send for urine cytology. We did discuss potential causes of hypogonadism as well as microscopic hematuria and further workup; we discussed risks and benefits of these interventions. Start low-dose Cialis as discussed and prescribed. Prescription provided for p.r.n. dosing. Will obtain testosterone, free testosterone, PSA, LH, FSH, estradiol, SHBG, and prolactin for further assessment evaluation. He currently denies any bothersome urinary issues. He reports be happy with current voiding parameters. Follow-up next available in office cystoscopy with labs to be completed prior; or sooner with any issues, concerns, and or questions. Orders: Orders Urine Cytology Today R31.29 - Other microscopic hematuria Follicle Stimulating Hormone Today N52.9 - Male erectile dysfunction, unspecified Sex Hormone Binding Globulin Today N52.9 - Male erectile dysfunction, unspecified AMB Urinalysis Automated Today Z13.9 - Encounter for screening, unspecified Lutenizing Hormone Today N52.9 - Male erectile dysfunction, unspecified Estradiol Ultra Sensitive Today N52.9 - Male erectile dysfunction, unspecified Testosterone, Free/Total Today N52.9 - Male erectile dysfunction, unspecified Prolactin Today N52.9 - Male erectile dysfunction, unspecified Medications: New tadalafil (Cialis) [id number] [facility] [id number] 5 mg PO DAILY 90 tabs 1RF 90 days N52.9 - Male erectile dysfunction, unspecified tadalafil (Cialis) administer approximately 30min before sexual activity; do not use more than 1 dose per 24hrs [id number] [facility] Member [id number] 10 mg PO .PRN PRN 20 tabs 3RF sexual activity 30 days N52.9 - Male erectile dysfunction, unspecified Patient Instructions: The patient had an opportunity to ask questions regarding the treatment plan. All questions were answered. Physical exam, labs, and imaging were discussed and reviewed in detail. As well as risks, benefits, and discussion of treatment choices. No major barriers to understanding were identified. The patient expressed understanding and agreement with the above treatment plan. The patient was made aware they should contact our office by phone for worsening of their current condition, the appearance of new symptoms, or with any questions or concerns. Compliance is encouraged with any medications and follow up testing that is ordered. It is a privilege to be allowed the opportunity to participate in? your urological care.? Again, if you have any questions or concerns If you have any questions or concerns please do not hesitate to contact me. The office is [phone]. This note is constructed using voice recognition software. While every effort has been made to ensure accuracy bereavement counselor errors may have been included. Yours sincerely, DUNCAN Jones Coding Level of Care Code Est Pt Level 4 (39713) Complex EM visit Add On G2211 Diagnoses Microscopic hematuria R31.29 Benign prostatic hyperplasia with incomplete bladder emptying N40.1; R39.14 Lower urinary tract symptom detail: incomplete bladder emptying Lower urinary tract symptom presence: symptoms present Erectile dysfunction N52.9
--- OUTSIDE RECORDS SUMMARY | 2025-01-23 08:48 | XMS_ITS | Patient Health Record ---
Author Organization [facility] Address [address] [place] [address] Care Team Providers Care Whitewater Rafting Guide Name Role Phone Jennifer Downing MD Primary Care Provider Antoni Grace Jr Unavailable Quita ECHEVERRIA, Klaus Unavailable Unavailable Reason For Referral No Information Encounters Encounter Location Date Provider Diagnosis [facility] [address] [place] [address] [address] [place] [address] 12/12/2024 Antoni Gerardo Jr Plan Of Treatment Next Appt Details Provider Name:Antoni loera Jr, 04/19/2025 10:00:00 AM, [address] [place] [address], [address], [place], [address], Insurance Providers Payer Name Payer Address Payer Phone Subscriber Number Group Number Insured Name Patient Relationship to Insured Coverage Start Date Coverage End Date [employer] [address] [place] [phone] [id number] JERMAINE ADAIR Self - patient is the insured
== END 2025-01-23 09:06 | disposition home or self-care (01) ==
LOC: HO.HUSH 08:29
PROVIDERS: PCP Internal Medicine; Visit Provider Nurse Practitioner Family
DX: R31.29 Other microscopic hematuria (principal); N40.1 Benign prostatic hyperplasia with lower urinary tract symptoms; R39.14 Feeling of incomplete bladder emptying; N52.9 Male erectile dysfunction, unspecified; Z13.9 Encounter for screening, unspecified
CPT/HCPCS: 99214; G2211

== ENCOUNTER 2025-01-23 08:28 | Outpatient (REF) | payer MEDICARE, SELFPAY | END 2025-01-23 08:29 | disposition home or self-care (01) | LOC: HO.LNP 08:28 | PROVIDERS: PCP Internal Medicine; Visit Provider Nurse Practitioner Family | DX: E29.1 Testicular hypofunction (principal); N40.1 Benign prostatic hyperplasia with lower urinary tract symptoms; R39.14 Feeling of incomplete bladder emptying; R31.29 Other microscopic hematuria; N52.9 Male erectile dysfunction, unspecified; Z13.89 Encounter for screening for other disorder; Z79.899 Other long term (current) drug therapy | CPT/HCPCS: 81003; 88112; 99212 ==

== ENCOUNTER 2025-02-22 07:29 | Outpatient (REF) | payer MEDICARE, SELFPAY ==
--- OUTSIDE RECORDS SUMMARY | 2024-12-12 05:20 | XMS_ITS ---
Author Organization [facility] Address [address] [place] [address] Care Team Providers Care Crab Fisherman Name Role Phone Jennifer Downing MD Primary Care Provider Antoni Grace Jr Unavailable Quita ECHEVERRIA, Klaus Unavailable Unavailable REASON FOR VISIT COLON SCREENING Encounters Encounter Location Date Provider Diagnosis [facility] [address] [facility] [address] [place] [address] 12/12/2024 Antoni Gerardo Jr Plan Of Treatment Next Appt Details Provider Name:Antoni loera Jr, 04/19/2025 10:00:00 AM, [address] [facility], [address], [place], [address], Progress Notes * JEFRY ADAIROB:1955 (69 yo M)Acc No.[id number]:12/12/2024 Progress Notes Patient: JERMAINE MCLAIN Provider: Gordon Gerardo MD :1955 A ge:68 Y S ex:Male Date:12/12/2024 Address:[address] [place] [address] [address], [place], [place] Pcp:Jennifer Downing MD Subjective: * Chief Complaints: [...] MD Date: 0 12/12/2024 Generated for Kian espinoza/Aly/aDnia on: 0 02/22/2025 07:31 AM EDT
--- OUTSIDE RECORDS SUMMARY | 2025-02-15 10:25 | XMS_ITS | Continuity of Care Document ---
Author Organization [facility] Address [address] [place] [address] [address] [place] [address] Phone Care Team Providers Care Bellperson Name Role Phone Genaro ECHEVERRIA, JE HEDRICK Robert Unavailable U navailable Advance Directives Directive Yes / No Effective Date File Name No Information Encounters Encounter Description Practice Location Reason(s) For Visit Diagnoses Date Provider Providers Copied on Encounter [facility], [address] [place] [address] [address], [place], [id number], tel:[phone] [facility] No Information 5 Genaro ECHEVERRIA, JE HEDRICK. [address] [address], [place], [place], [id number] , . tel:[phone] Family History Family Member Type Diagnosis Age At Onset No Information Payers Payer name Insurance type Covered green party ID Authoriza tion(s) No Information Social History Type Description Quantity Date Captured Comments Sex Male Smoking Status No Information Chief Complaint And Reason For Visit No Information Reason For Referral Reason For Referral No Information Plan Of Treatment Date Type Action Status Appointment Mitchell Navarrete BOOKED Appointment Mitchell Navarrete (OON- Have Be nefits Recheck After 02/20) BOOKED History Of Present Illness Encounter Date Complaint History Of Prese nt Illness No Information Functional Status Date Functional Assessmen t No Information Instructions Date Instruction Additional Infor mation No Information Assessments Type Assessment Date No Information Patient Care Teams Name Effective Dates (start - stop) Status Members No Information
--- OUTSIDE RECORDS SUMMARY | 2025-02-22 07:32 | XMS_ITS | Patient Health Record ---
Author Organization [facility] Address [address] [place] [address] Care Team Providers Care Freight Sales Broker Name Role Phone Jennifer Downing MD Primary Care Provider Antoni Grace Jr Unavailable Quita ECHEVERRIA, Klaus Unavailable Unavailable Reason For Referral No Information Encounters Encounter Location Date Provider Diagnosis [facility] [address] [place] [address] [address] [place] [address] 12/12/2024 Antoni Gerardo Jr Plan Of Treatment Next Appt Details Provider Name:Antoni loera Jr, 04/19/2025 10:00:00 AM, [address] [place] [address], [address], [place], [address], Insurance Providers Payer Name Payer Address Payer Phone Subscriber Number Group Number Insured Name Patient Relationship to Insured Coverage Start Date Coverage End Date [employer] [employer] [address] [place] [phone] [id number] JERMAINE ADAIR Self - patient is the insured
[2025-02-22 08:11] LABS: MANUAL DIFF FLAG NO
[2025-02-22 08:47] LABS: Hematocrit 38.6 % (42.0-52.0); Hemoglobin 12.7 g/dl (14.0-18.0); Imm Gran Abs Auto 0.03 X10*3/uL (0.00-0.03); Imm Gran Pct Auto 0.6 % (0.0-0.4); Lymphocytes Absolute Auto 1.1 X10*3/uL (1.2-4.9); Mean Corpuscular HGB Conc 32.9 g/dl (31.0-36.0); Mean Corpuscular Hemoglobin 28.8 pg (27.0-33.0); Mean Corpuscular Volume 87.5 fL (80.0-98.0); NRBC Abs Auto 0.000 X10*3/uL (0.0-0.012); NRBC Pct Auto 0.0 /100WBC (0.0-0.2); Platelet Count 193 X10*3/uL (160-400); Red Blood Count 4.41 X10*6/uL (4.60-5.80); Reticulocytes Absolute 0.059 X10*6/uL (0.026-0.095); White Blood Count 4.9 X10*3/uL (4.8-10.8)
[2025-02-22 09:37] LABS: Alanine Aminotransferase 13 U/L (0-40); Albumin Level 4.3 g/dL (3.5-5.0); Alkaline Phosphatase 66 U/L (39-117); Anion Gap 9 (12-20); Aspartate Amino Transferase 22 U/L (5-37); Blood Urea Nitrogen 18 mg/dL (9-16); Calcium 8.9 mg/dL (8.4-10.2); Carbon Dioxide 26 mmol/L (22-29); Chloride 109 mmol/L (96-108); Cholesterol 167 mg/dL (<200); Estimated Glomerular Filt Rate > 60; HDL Cholesterol 45 mg/dL (>40); Iron 82 mcg/dL (45-160); Percent Iron Saturation 39 % (15-50); Potassium 4.3 mmol/L (3.3-5.1); Sodium 140 mmol/L (135-145); Total Iron Binding Capacity 209 mcg/dL (228-428); Total Protein 6.5 g/dL (6.5-8.0); Triglycerides 82 mg/dL (<150); Unsaturated Iron Binding 127 ug/dL
[2025-02-22 09:43] LABS: Ferritin 251 ng/mL (20-250); Free T4 (Free Thyroxine) 1.00 ng/dL (0.71-1.85); Thyroid Stimulating Hormone 1.21 uIU/mL (0.32-4.0)
[2025-02-22 09:49] LABS: Folate 14.0 ng/mL (> or = 4.0); Vitamin B12 362 pg/mL (200-900)
[2025-02-23 07:58] LABS: Follicle Stimulating Hormone 5.2 mIU/mL (1.4-12.8)
[2025-02-27 00:13] LABS: Estradiol Ultra Sensitive 16 pg/mL (< OR = 29)
[2025-03-10 14:43] LABS: Testosterone, Free 49.9 pg/mL (30.0-135.0)
== END 2025-02-22 07:30 | disposition home or self-care (01) ==
LOC: HO.LAB 07:29
PROVIDERS: Absent Provider Internal Medicine; PCP Internal Medicine; Visit Provider Nurse Practitioner Family
DX: Z12.5 Encounter for screening for malignant neoplasm of prostate (principal); E29.1 Testicular hypofunction; N52.9 Male erectile dysfunction, unspecified; D50.8 Other iron deficiency anemias
CPT/HCPCS: 36415; 80053; 80061; 82306; 82607; 82670; 82728; 82746; 83001; 83002; 83540; 84146; 84153; 84270; 84402; 84403; 84439; 84443; 85025; 85045

== ENCOUNTER 2025-03-02 08:18 | Outpatient (AMB) | payer MEDICARE, SELFPAY ==
--- OUTSIDE RECORDS SUMMARY | 2024-12-12 05:20 | XMS_ITS ---
Author Organization [facility] Address [address] [place] [address] Care Team Providers Care Pedodontist Name Role Phone Jennifer Downing MD Primary Care Provider Antoni Grace Jr Unavailable Quita ECHEVERRIA, Klaus Unavailable Unavailable REASON FOR VISIT COLON SCREENING Encounters Encounter Location Date Provider Diagnosis [facility] [address] [facility] [address] [place] [address] 12/12/2024 Antoni Gerardo Jr Plan Of Treatment Next Appt Details Provider Name:Antoni loera Jr, 04/19/2025 10:00:00 AM, [address] [facility], [address], [place], [address], Progress Notes * JEFRY ADAIROB:1955 (69 yo M)Acc No.[id number]:12/12/2024 Progress Notes Patient: JERMAINE MCLAIN Provider: Gordon Gerardo MD :1955 A ge:68 Y S ex:Male Date:12/12/2024 Address:[address] [place] [address] [address], [place], [place] Pcp:Jennifer Downing MD Subjective: * Chief Complaints: [...] 12/12/2024 Generated for Kian espinoza/Aly/Dania on: 0 03/02/2025 09:17 AM EDT
[2025-03-02 08:22] VITALS: BP 134/68; PULSE 72; TEMP 36.3; O2SAT 96; BMI 30.6
--- NOTE | 2025-03-02 08:22 | A.OFFPC_ITS ---
Vital Signs 03/02/25 08:22 Height 5 ft 4 in Weight 178 lb 2 oz BMI 30.6 BP 134/68 Blood Pressure Location Lt brachial Position Sitting Pulse 72 Pulse Source Pulse Oximeter Temp 97.3 F Temp Source Temporal Artery Scan Pulse Oximetry (%) 96 Oxygen Delivery Method Room Air Intake Visit Reasons: 3mth f/u Allergies No Known Allergies (No Known Allergies*) Allergy (Verified 03/02/25 08:24) Tobacco use date assessed: 03/02/25 Fall risk assessment: No Falls in past year Last assessed Fall Risk: 03/02/25 Dental Screening Dental Screen Date: 03/02/25 Did you have a dental visit in the last 12 months?: No Did you have a dental problem in the last 6 months where you did not have access to dental care?: No Was dental information given to patient?: No [facility] Medical History (Updated 03/02/25 @ 08:57 by Jennifer Downing MD) Swelling of right lower extremity Multiple joint pain Hematuria Right shoulder pain Weak urinary stream Rotator cuff arthropathy of right shoulder Iron deficiency anemia Personal history of tobacco use Anemia Diverticulosis Overweight (BMI 25.0-29.9) Osteoarthritis Tubular adenoma of colon Alcohol abuse GERD (gastroesophageal reflux disease) Hypercholesterolemia Hypertension Surgical History History of colonoscopy History of excision of lesion History of tonsillectomy Family History Father CVD (cardiovascular disease) Stroke Mother No problems noted. Paternal Aunt Myocardial infarction Paternal Uncle Myocardial infarction Brother No problems noted. Sister No problems noted. Daughter No problems noted. 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 1. Little interest or pleasure in doing things: not at all 2. Feeling down, depressed, or hopeless: not at all 3. Trouble falling or staying asleep, or sleeping too much: not at all 4. Feeling tired or having little energy: more than half the days 5. Poor appetite or overeating: not at all 6. Feeling bad about yourself - or that you are a failure or have let yourself or your family down: not at all 7. Trouble concentrating on things, such as reading the newspaper or watching television: not at all 8. Moving or speaking so slowly that other people could have noticed. Or the opposite - being so fidgety or restless that you have been moving around a lot more than usual: several days 9. Thoughts that you would be better off or of hurting yourself in some way: not at all Total score: 3 Depression Screening Interpretation: Positive Depression Screening Done: Yes Source: Developed by Drs. Mazin Puri, Felisa Smith, Khadar Garcia and colleagues, with an educational nayana from [employer]. Thrive Questionnaire Date Thrive assessed: 03/02/25 I am a: Patient What is your living situation today?: I have a steady place to live Within the past 12 months, did the food you bought not last and you didn't have the money to get more?: Never true Within the past 12 months, did you worry whether your food would run out before you got money to buy more?: Sometimes True Do you have trouble paying for medicines?: No Do you have trouble getting transportation to medical appointments?: No Do you have trouble paying your heating and electricity bill?: No Do you have trouble taking care of your child, family member or friend?: No Do you have trouble with day-to-day activities such as bathing, preparing meals, shopping, managing finances, etc.?: No Are you currently unemployed and looking for a job?: No Are you interested in more education?: No Please select the resources that you would like help with: None Currently or been in a relationship where the following occur: No concerns reported THRIVE Score: 1 AUDIT C Alcohol Use Questionnaire (AUDIT-C) 1. How often do you have a drink containing alcohol?: Never 3. How often do you have six or more drinks on one occasion?: Never Total Score: 0 LUIS M-7 AMB Questionnaire LUIS M-7 Date LUIS M - 7 assessed: 07/28/24 Feeling nervous, anxious, or on edge: 0 = Not at all Not being able to stop or control worryin = Not at all Worrying too much about different things: 0 = Not at all Trouble relaxin = Not at all Being so restless that it is hard to sit still: 0 = Not at all Becoming easily annoyed or irritable: 0 = Not at all Feeling afraid as if something awful might happen: 0 = Not at all Total LUIS M-7 score (0-4 normal; 5-9 mild; 10-14 moderate; 15-21 severe): 0 Source: Developed by Drs. Mazin Puri, Felisa Smith, Khadar Garcia and colleagues, with an educational nayana from [employer]. Physical exam (Primary Care) Vital Signs: Last Vital Signs Temp 97.3 F 03/02/25 08:22 Pulse 72 03/02/25 08:22 BP 134/68 03/02/25 08:22 Pulse Ox 96 03/02/25 08:22 Oxygen Delivery Method Room Air 03/02/25 08:22 BMI result Body Mass Index 30.6 Tobacco/Smoking Status: Tobacco use Status Tobacco use date assessed 03/02/25 03/02/25 08:25 Patient Tobacco Use Status Former Tobacco user 03/02/25 08:25 Tobacco use type Cigarette 03/02/25 08:25 e-Cigarette/Vaping Use Never Used 03/02/25 08:25 PHQ-9: PHQ-9 Score PHQ-9: Total score 3 03/02/25 08:41 Depression Screening Interpretation: Positive Thrive Assessment: Date of Thrive Assessment Date Thrive assessed 03/02/25 03/02/25 08:25 Currently or been in a relationship where the following occur: No concerns reported Const General: alert; No acute distress Eyes Conjunctivae: conjunctivae normal Resp Auscultation: clear to auscultation bilaterally Cardio Rate: regular rate Rhythm: regular rhythm GI Inspection: Yes normal to inspection Extrem General: Yes normal to inspection and No edema Coding Level of Care Code Est Pt Level 4 (96176) Complex EM visit Add On G2211 Diagnoses Essential hypertension I10 Hypertension type: essential hypertension Hypercholesterolemia E78.00 Hypogonadism in male E29.1 Gastroesophageal reflux disease without esophagitis K21.9 Esophagitis presence: without esophagitis Tubular adenoma of colon D12.6 Microscopic hematuria R31.29 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 Decrease salt intake and exercise patient on lisinopril 40 mg once a day (2) Hypercholesterolemia: Code(s): E78.00 - Pure hypercholesterolemia, unspecified Category: Medical Plan: Avoid fried foods, chicken skin, eggs, butter margarine, pastries and meat. Be it pork or beef they have a lot of cholesterol LDL goal of less than 130 and triglyceride of less than 150. Patient just had blood work February and is at goal (3) Hypogonadism in male: Code(s): E29.1 - Testicular hypofunction Category: Medical Plan: Patient is being followed up by Urology and results are pending (4) GERD (gastroesophageal reflux disease): Code(s): K21.9 - Gastro-esophageal reflux disease without esophagitis Category: Medical Qualifiers: Esophagitis presence: without esophagitis Qualified Code(s): K21.9 - Gastro-esophageal reflux disease without esophagitis Plan: Avoid the foods that causes that usually spicy foods, tomato products, juices, coffee, soda and foods that your sensitive to. After eating do not lie down, allow 3-4 hours before in lie down. And keep the head of bed above 30 degrees to avoid the acid from going up. (5) Tubular adenoma of colon: Comment: (TAs on 2010 scope, normal 2017 scope) 2019 Code(s): D12.6 - Benign neoplasm of colon, unspecified Category: Medical Plan: Concern about rectal bleed and need for gastroenterology consult. Does not see any note. (6) Microscopic hematuria: Code(s): R31.29 - Other microscopic hematuria Category: Medical Plan: Patient is being followed up by Urology and urine cytology requested (7) Painful arc syndrome of right shoulder: Code(s): M75.101 - Unspecified rotator cuff tear or rupture of right shoulder, not specified as traumatic Category: Medical Plan: Patient follows up with orthopedics and just had some injections done (8) Personal history of tobacco use: Comment: (onset 11yo, 1ppd x 48yrs, 40pyh - quit ?2012) September 2023 Code(s): Z87.891 - Personal history of nicotine dependence Category: Social Hx Plan: Reminded patient on the need for another CAT scan for the lungs due to the history of smoking. (9) Compression fracture of T11 vertebra: Comment: CT scan 2021, states 08/2021 fall stairs Code(s): S22.080A - Wedge compression fracture of T11-T12 vertebra, initial encounter for closed fracture Category: Medical (10) Peripheral vascular disease: Code(s): I73.9 - Peripheral vascular disease, unspecified Category: Medical (11) Swelling of right lower extremity: Code(s): M79.89 - Other specified soft tissue disorders Category: Medical Plan: When sitting down elevate the legs, exercise, and support stockings Plan History of Present Illness The patient is a 69-year-old male presenting for a follow-up visit. The patient has a history of hypertension, hypercholesterolemia, and gastroesophageal reflux disease (GERD). He is currently on lisinopril 40 mg daily for hypertension and has achieved his cholesterol goals with recent blood work showing LDL at 106 mg/dL. The patient has a history of thoracic vertebral compression and was last seen in October 2024 for rectal bleeding, for which a gastroenterology consult was recommended but not yet completed. He was also seen by urology for microscopic hematuria and testicular hypofunction, with urine cytology performed and no cancer cells detected. In November, the patient consulted orthopedics for right shoulder pain diagnosed as painful arc syndrome, and received injections for relief. He reports intermittent soreness but manages it with patches, creams, and Tylenol. The patient has been anemic since 2019, with recent blood work showing hemoglobin at 12.7 g/dL and hematocrit at 38.6%. Other lab results indicate normal electrolytes, renal function, and liver function, with pending testosterone levels. He has a history of eczema, which he manages with a topical cream applied sparingly to affected areas on the face. The patient denies any dietary triggers for the eczema. The patient has peripheral vascular disease, with symptoms of leg swelling, particularly in the right leg, which worsens by the end of the day. He elevates his leg at night for relief and is considering an ultrasound to assess circulation. Health Maintenance - Colonoscopy follow-up recommended due to history of tubular adenoma - Chest CT scan recommended due to smoking history - Flu shot recommended in March - COVID- vaccination recommended Social History - Housing: Recently purchased a new trailer home [address] in [place], plans to reside there permanently. - Exercise: Engages in regular movement to manage shoulder pain, avoids heavy lifting. - Smoking history: Requires regular chest CT scans for monitoring. Review of Systems - Cardiovascular: Denies chest pain, reports controlled hypertension with medication. - Gastrointestinal: Reports history of rectal bleeding, denies current symptoms. - Musculoskeletal: Reports intermittent right shoulder soreness, denies severe pain. - Dermatological: Reports eczema on the face, denies widespread rash. - Genitourinary: Reports microscopic hematuria, denies dysuria. - Hematological: Reports anemia, denies significant fatigue. - Vascular: Reports leg swelling, particularly in the right leg, denies pain. Physical Exam Results - Labs: Hemoglobin 12.7 g/dL, Hematocrit 38.6%, LDL 106 mg/dL, electrolytes normal, renal and liver function normal, testosterone pending. - Tests: Urine cytology negative for cancer cells. Plan Patient was informed and verbally consented to the use of an ambient scribe for clinic note documentation during this visit. 1. Hypertension The patient is currently on lisinopril 40 mg daily, which has effectively controlled his blood pressure. 2. Hypercholesterolemia The patient's LDL cholesterol is at goal, with recent labs showing a level of 106 mg/dL. 3. Gastroesophageal Reflux Disease (Gerd) The patient has a history of GERD, and there is a concern about rectal bleeding, necessitating a gastroenterology consult. 4. Thoracic Vertebral Compression The patient has a history of thoracic vertebral compression, which is being monitored. 5. Rectal Bleeding The patient was advised to follow up with gastroenterology for rectal bleeding, but this has not yet occurred. 6. Microscopic Hematuria The patient is being followed by urology for microscopic hematuria, with urine cytology showing no cancer cells. 7. Painful Arc Syndrome Of The Right Shoulder The patient received injections for right shoulder pain and manages symptoms with patches, creams, and Tylenol. 8. Anemia The patient has chronic anemia, with recent labs showing hemoglobin at 12.7 g/dL and hematocrit at 38.6%. 9. Eczema The patient manages facial eczema with a topical cream and denies dietary triggers. 10. Peripheral Vascular Disease The patient experiences leg swelling, particularly in the right leg, and is considering an ultrasound to assess circulation. 11. Preventative Care: Colonoscopy Follow-Up A follow-up colonoscopy is recommended due to a history of tubular adenoma. 12. Preventative Care: Chest Ct Scan Due To Smoking History A chest CT scan is recommended to monitor for lung changes due to the patient's smoking history. Discussion Notes During the visit, I discussed the importance of following up with gastroenterology for the rectal bleeding and the need for a colonoscopy due to the history of tubular adenoma. I also emphasized the necessity of a chest CT scan to monitor lung health due to the patient's smoking history. We reviewed the patient's current medications, including lisinopril for hypertension and the need for a refill of tramadol for pain management. I advised the patient on managing leg swelling with elevation and support stockings and discussed the potential need for an ultrasound to assess circulation. Patient Instructions - Follow up with gastroenterology for rectal bleeding and schedule a colonoscopy. - Schedule a chest CT scan to monitor lung health due to smoking history. - Continue taking lisinopril as prescribed and refill tramadol as needed. - Manage leg swelling by elevating legs and wearing support stockings. - Apply eczema cream sparingly to affected areas on the face. - Get a flu shot in March and consider COVID-19 vaccination. Orders: Orders US venous duplex LE RT Today M79.89 - Other specified soft tissue disorders Referrals Vascular Surgery Referral I73.9 - Peripheral vascular disease, unspecified Medications: Refilled triamcinolone acetonide 0.5% 1 appl topical BID 30 grams 0RF 14 days tramadol 50 mg PO QID PRN 120 tabs 1RF pain 30 days M19.90 - Unspecified osteoarthritis, unspecified site
--- OUTSIDE RECORDS SUMMARY | 2025-03-02 09:17 | XMS_ITS | Patient Health Record ---
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 Name Role Phone Jennifer Downing MD Primary Care Provider Antoni Grace Jr Unavailable Quita ECHEVERRIA, Klaus Unavailable Unavailable Reason For Referral No Information Encounters Encounter Location Date Provider Diagnosis [facility] [address] [place] [address] [address] [place] [address] 12/12/2024 Antoni Gerardo Jr Plan Of Treatment Next Appt Details Provider Name:Antoni loera Jr, 04/19/2025 10:00:00 AM, [address] [place] [address], [address], [place], [address], Insurance Providers Payer Name Payer Address Payer Phone Subscriber Number Group Number Insured Name Patient Relationship to Insured Coverage Start Date Coverage End Date [employer] [address] [place] [phone] [id number] JERMAINE ADAIR Self - patient is the insured
== END 2025-03-02 09:02 | disposition home or self-care (01) ==
LOC: HO.HMCH 08:19
PROVIDERS: PCP Internal Medicine; Visit Provider Internal Medicine
DX: I10 Essential (primary) hypertension (principal); E78.00 Pure hypercholesterolemia, unspecified; S22.080A Wedge compression fracture of T11-T12 vertebra, initial encounter for closed fracture; K21.9 Gastro-esophageal reflux disease without esophagitis; D12.6 Benign neoplasm of colon, unspecified; R31.29 Other microscopic hematuria; M75.101 Unspecified rotator cuff tear or rupture of right shoulder, not specified as traumatic; Z87.891 Personal history of nicotine dependence; I73.9 Peripheral vascular disease, unspecified; M79.89 Other specified soft tissue disorders

== ENCOUNTER → 2025-03-02 08:18 | Outpatient (BNVA) | payer MEDICARE, SELFPAY | PROVIDERS: PCP Internal Medicine; Visit Provider Internal Medicine | DX: I10 Essential (primary) hypertension (principal); E78.00 Pure hypercholesterolemia, unspecified; E29.1 Testicular hypofunction; K21.9 Gastro-esophageal reflux disease without esophagitis; K62.5 Hemorrhage of anus and rectum; R31.29 Other microscopic hematuria; M75.101 Unspecified rotator cuff tear or rupture of right shoulder, not specified as traumatic; S22.080D Wedge compression fracture of T11-T12 vertebra, subsequent encounter for fracture with routine healing; I73.9 Peripheral vascular disease, unspecified; M79.89 Other specified soft tissue disorders; D64.9 Anemia, unspecified; L30.9 Dermatitis, unspecified; Z86.0101 Personal history of adenomatous and serrated colon polyps; Z87.891 Personal history of nicotine dependence; Z79.899 Other long term (current) drug therapy; Z13.31 Encounter for screening for depression | CPT/HCPCS: 96127; 99212 ==

== ENCOUNTER 2025-03-06 07:41 | Outpatient (REF) | payer MEDICARE, SELFPAY ==
--- OUTSIDE RECORDS SUMMARY | 2024-12-12 05:20 | XMS_ITS ---
Author Organization [facility] Address [address] [place] [address] Care Team Providers Care Glue Line Operator Name Role Phone Jennifer Downing MD Primary Care Provider Antoni Grace Jr Unavailable [phone] Quita ECHEVERRIA, Klaus Unavailable Unavailable REASON FOR VISIT COLON SCREENING Encounters Encounter Location Date Provider Diagnosis [facility] [address] [facility] [address] [place] [address] 12/12/2024 Antoni Gerardo Jr Plan Of Treatment Next Appt Details Provider Name:Antoni loera Jr, 04/19/2025 10:00:00 AM, [address] [facility], [address], [place], [address], Progress Notes * JEFRY ADAIROB:1955 (69 yo M)Acc No.[id number]:12/12/2024 Progress Notes Patient: JERMAINE MCLAIN Provider: Gordon Gerardo MD :1955 A ge:68 Y S ex:Male Date:12/12/2024 Address:[address] [place] [address] [address], [place], [place] Pcp:Jennifer Downing MD Subjective: * Chief Complaints: [...] 12/12/2024 Generated for Kian espinoza/Aly/Dania on: 0 03/06/2025 07:44 AM EDT
--- NOTE | ~2025-03-06 | US_ITS ---
EXAMINATION: US TRIPLEX LOWER EXTREMITY, RIGHT CLINICAL INFORMATION: Pain, right lower extremity. Skin redness. COMPARISON: None available. TECHNIQUE: Color-flow triplex imaging with spectral analysis and compression Doppler were performed on the right lower extremity. FINDINGS: Respiratory variation, normal compression and augmented flow are demonstrated in the interrogated right common femoral vein, superficial femoral vein, profunda femoral vein, popliteal vein and midcalf peroneal and posterior tibial venous segments . There is no Tirado's cyst. Mild edema pattern in the right lower leg without fluid collections. 2.7 cm prominent right inguinal lymph node. US/US venous duplex LE RT IMPRESSION: No acute deep venous thrombosis interrogated veins, right lower extremity. Negative for DVT. Electronically signed by: Ehsan Baptiste MD 03/06/2025 08:50 AM EDT
--- OUTSIDE RECORDS SUMMARY | 2025-03-06 07:44 | XMS_ITS | Patient Health Record ---
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 Name Role Phone Jennifer Downing MD Primary Care Provider Antoni Grace Jr Unavailable Quita ECHEVERRIA, Klaus Unavailable Unavailable Reason For Referral No Information Encounters Encounter Location Date Provider Diagnosis [facility] [address] [place] [address] [address] [place] [address] 12/12/2024 Antoni Gerardo Jr Plan Of Treatment Next Appt Details Provider Name:Antoni loera Jr, 04/19/2025 10:00:00 AM, [address] [place] [address], [address], [place], [address], Insurance Providers Payer Name Payer Address Payer Phone Subscriber Number Group Number Insured Name Patient Relationship to Insured Coverage Start Date Coverage End Date [employer] [address] [place] [phone] [id number] JERMAINE ADAIR Self - patient is the insured
== END 2025-03-06 07:42 | disposition home or self-care (01) ==
LOC: HO.US 07:41
PROVIDERS: PCP Internal Medicine; Visit Provider Internal Medicine
DX: R60.0 Localized edema (principal)
CPT/HCPCS: 93971

== ENCOUNTER → 2025-03-06 07:43 | Outpatient (BNV) | payer MEDICARE, SELFPAY | PROVIDERS: PCP Internal Medicine; Visit Provider Radiology Diagnostic Radiology | DX: M79.661 Pain in right lower leg (principal); M79.89 Other specified soft tissue disorders | CPT/HCPCS: 93971 ==

== ENCOUNTER 2025-03-16 09:40 | Outpatient (AMB) | payer MEDICARE, SELFPAY ==
--- OUTSIDE RECORDS SUMMARY | 2024-12-12 05:20 | XMS_ITS ---
Author Organization [facility] Address [address] [place] [address] Care Team Providers Care Supervisor Maintenance And Custodians Name Role Phone Jennifer Downing MD Primary Care Provider Antoni Grace Jr Unavailable Quita ECHEVERRIA, Klaus Unavailable Unavailable REASON FOR VISIT COLON SCREENING Encounters Encounter Location Date Provider Diagnosis [facility] [address] [facility] [address] [place] [address] 12/12/2024 Antoni Gerardo Jr Plan Of Treatment Next Appt Details Provider Name:Antoni loera Jr, 04/19/2025 10:00:00 AM, [address] [facility], [address], [place], [address], Progress Notes * JEFRY ADAIROB:1955 (69 yo M)Acc No.[id number]:12/12/2024 Progress Notes Patient: JERMAINE MCLAIN Provider: Gordon Gerardo MD :1955 A ge:68 Y S ex:Male Date:12/12/2024 Address:[address] [place] [address] [address], [place], [place] Pcp:Jennifer Downing MD Subjective: * Chief Complaints: * 1 . COLON SCREENING. * Medical History: Objective: * Vitals: Assessment: Plan: * Treatment: * * The named appointment provid er may or may not be the originator of this progress note, and it is not deemed complete until electronically signed by the appointment provider. Sign off status: Pending * Provider: Gordon Gerardo MD Date: 0 12/12/2024 Generated for Kian espinoza/Aly/Dania on: 0 03/16/2025 11:26 AM EDT
--- NOTE | 2025-03-16 10:14 | A.OFFVIS_ITS ---
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 He is a patient of Dr. Downing. He is seen for the following urologic conditions - microscopic hematuria - borderline hypogonadism Here for check cystoscopy No significant findings within his prostate Borderline testosterone Improvement on tadalafil Continue Testosterone: 08/15 132, 03/15 225, 03/16 335 Free testosterone: 03/15 42.5, 03/16 49 PSA: 09/09 0.29, 01/10 0.60, 08/15 0.42, 03/15 0.66 LH: 03/16 2.8 Microscopic hematuria Discovered through PCP workup 30 pack per day smoking history cease 20 years ago Denies any chemical exposure in the workplace Imaging - 08/14 - CT scan with normal kidneys in ureter, NAD Cytology - 09/11 negative Cystoscopy - 09/11 tiny areas of angio keratosis - 03/16 no change since prior cystoscopy [facility], [facility] Medical History (Updated 03/02/25 @ 08:57 by Jennifer Downing MD) Swelling of right lower extremity Multiple joint pain Hematuria Right shoulder pain Weak urinary stream Rotator cuff arthropathy of right shoulder Iron deficiency anemia Personal history of tobacco use Anemia Diverticulosis Overweight (BMI 25.0-29.9) Osteoarthritis Tubular adenoma of colon Alcohol abuse GERD (gastroesophageal reflux disease) Hypercholesterolemia Hypertension Surgical History History of colonoscopy History of excision of lesion History of tonsillectomy Family History Father CVD (cardiovascular disease) Stroke Mother No problems noted. Paternal Aunt Myocardial infarction Paternal Uncle Myocardial infarction Brother No problems noted. Sister No problems noted. Daughter No problems noted. 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 Information consent for procedure given to the patient. Discussed technical aspects, risks, benefits and alternatives in full. Addressed all of the patient's questions and concerns regarding the procedure. The patient demonstrated knowledge and understanding. They wish to proceed with this procedure. Preparation The patient was prepped in the usual manner. A employee communications coordinator was present and in the room. Genitalia was prepped with betadine solution in a sterile manner. Lidocaine Jelly 2% was placed into the urethra and 16Fr flexible Olympus cystoscope was inserted into the meatus after adequate lubrication. Procedure Cystoscopy performed using a disposable Urovue digital 16 Gambian cystoscope. Meatus circumcised Urethra anterior and posterior urethra normal Prostatic Urethra unremarkable Bladder examination with retroflexion of cystoscope Bladder Orifices normal shape and position Bladder Capacity Normal Trabeculations Grade 0 Cellule Formation None Diverticulum Formation None Mucosal Erythema tiny mucosal angio variations Bladder Tumor None [id number] DISPOSABLE SCOPE URO-G FLEXIBLE SCOPE Procedure code (CPT) selection complete Office Meds lidocaine HCl 2 % mucosal jelly in applicator Performing Provider: Arnaldo Cannon MD Performing Location: [facility] Administered by: Karla Mendoza RN on 03/16/25 10:32 Dose Route Admin Location Dispensed Lot Number Expiration Date ND Gas Brazer 10 mL intra-urethral 10 mL nitrofurantoin monohydrate/macrocrystals 100 mg capsule Performing Provider: Arnaldo Cannon MD Performing Location: [facility] Administered by: Karla Mendoza RN on 03/16/25 10:32 Dose Route Admin Location Dispensed Lot Number Expiration Date ND Gas Brazer 100 mg PO 1 cap Results AMB Urinalysis, Automated UA Leukoctes 0 Delia/uL Last Edit by LOR Triana on 03/16/25 13:26 UA Nitrite Last Edit by LOR Triana on 03/16/25 13:26 UA Urobilinogen 3.5 mg/dL Last Edit by LOR Triana on 03/16/25 13:2 6 UA Protein 15 mg/dL Last Edit by LOR Triana on 03/16/25 13:26 UA pH 5.5 Last Edit by LOR Triana on 03/16/25 13:26 UA Blood 25 Yasmany/uL Last Edit by LOR Triana on 03/16/25 13:26 UA Specific [place] 1.025 Last Edit by LOR Triana on 03/16/25 13: 26 UA Ketone Last Edit by LOR Triana on 03/16/25 13:26 UA Bilirubin 0 mg/dL Last Edit by LOR Triana on 03/16/25 13:26 UA Glucose 0 mg/dL Last Edit by LOR Triana on 03/16/25 13:26 Results Reviewed Results Reviewed: Laboratory Last Values Urine pH (Auto) 5.5 03/16/25 13:25 Specific [place] (Auto) 1.025 03/16/25 13:25 Urine Protein (Auto) 15 mg/dL 03/16/25 13:25 Glucose (UA)(Auto) 0 mg/dL 03/16/25 13:25 Urine Blood (Auto) 25 Yasmany/uL 03/16/25 13:25 Urine Bilirubin (Auto) 0 mg/dL 03/16/25 13:25 Urine Urobilinogen (Auto) 3.5 mg/dL 03/16/25 13:25 Leukocyte Esterase (Auto) 0 Delia/uL 03/16/25 13:25 Assessment & Plan Assessment & Plan (1) Microscopic hematuria: Code(s): R31.29 - Other microscopic hematuria Category: Medical (2) BPH (benign prostatic hyperplasia): Code(s): N40.0 - Benign prostatic hyperplasia without lower urinary tract symptoms Category: Medical Qualifiers: Lower urinary tract symptom presence: symptoms present Lower urinary tract symptom detail: incomplete bladder emptying Qualified Code(s): N40.1 - Benign prostatic hyperplasia with lower urinary tract symptoms; R39.14 - Feeling of incomplete bladder emptying (3) Erectile dysfunction: Code(s): N52.9 - Male erectile dysfunction, unspecified Category: Medical Plan Remain on PDE5 inhibitor Twelve month follow-up nurse-practitioner Orders: Orders AMB Cystoscopy 03/16/25 N40.1 - Benign prostatic hyperplasia with lower urinary tract symptoms, R31.29 - Other microscopic hematuria, R39.14 - Feeling of incomplete bladder emptying AMB Urinalysis Automated 03/16/25 Z13.9 - Encounter for screening, unspecified Patient Instructions: This note is constructed using voice recognition software. While every effort has been made to ensure accuracy rn endocrinology errors may have been included. Imaging studies, laboratory and physical exam results were discussed and reviewed in detail. No major barriers to patient understanding were identified. An opportunity to ask questions regarding the treatment plan was provided. All questions were answered. The patient expressed understanding and agreement with the above treatment plan. The patient is aware they should contact our office by phone for worsening of their current condition or the appearance of new urologic symptoms. Compliance is encouraged with any medications and followup testing that is ordered. It is a privilege to participate in the urologic care of your patient. If you have any questions or concerns regarding treatment for the above conditions, or other urologic issues, please do not hesitate to contact me. The office telephone contact is [phone]. Sincerely, Dr Arnaldo Cannon MD, ITA [facility] - Urology Compassionate Specialist Care for the Genitourinary System Coding Level of Care Code Est Pt Level 3 (84276) Diagnoses Microscopic hematuria R31.29 Benign prostatic hyperplasia with incomplete bladder emptying N40.1; R39.14 Lower urinary tract symptom presence: symptoms present Lower urinary tract symptom detail: incomplete bladder emptying Erectile dysfunction N52.9 CPT Codes Cystoscopy - CPT: [id number] ([id number])
--- OUTSIDE RECORDS SUMMARY | 2025-03-16 11:26 | XMS_ITS | Patient Health Record ---
Author Organization [facility] Address [address] [place] [address] Care Team Providers Care Loan Closer Name Role Phone Jennifer Downing MD Primary Care Provider Antoni Grace Jr Unavailable [phone] [place] ECHEVERRIA, Klaus Unavailable Unavailable Reason For Referral No Information Encounters Encounter Location Date Provider Diagnosis [facility] [address] [place] [address] [address] [place] [address] 12/12/2024 Antoni Gerardo Jr Plan Of Treatment Next Appt Details Provider Name:Antoni loera Jr, 04/19/2025 10:00:00 AM, [address] [place] [address], [address], [place], [address], Insurance Providers Payer Name Payer Address Payer Phone Subscriber Number Group Number Insured Name Patient Relationship to Insured Coverage Start Date Coverage End Date [employer] [address] [place] [phone] [id number] JERMAINE ADAIR Self - patient is the insured
== END 2025-03-16 10:51 | disposition home or self-care (01) ==
PROVIDERS: PCP Internal Medicine; Visit Provider Urology
DX: N40.1 Benign prostatic hyperplasia with lower urinary tract symptoms (principal); R39.14 Feeling of incomplete bladder emptying; R31.29 Other microscopic hematuria; Z13.9 Encounter for screening, unspecified
CPT/HCPCS: 52000; 99213

== ENCOUNTER → 2025-03-16 09:40 | Outpatient (BNVA) | payer MEDICARE, SELFPAY | PROVIDERS: PCP Internal Medicine; Visit Provider Urology | DX: N40.1 Benign prostatic hyperplasia with lower urinary tract symptoms (principal); R31.29 Other microscopic hematuria; R39.14 Feeling of incomplete bladder emptying; N52.9 Male erectile dysfunction, unspecified | CPT/HCPCS: 52000; 81003; 99212 ==

== ENCOUNTER 2025-05-26 08:27 | Day surgery (SDC) | payer MEDICARE, SELFPAY ==
--- OUTSIDE RECORDS SUMMARY | 2024-12-12 04:20 | XMS_ITS ---
Author Organization [facility] Address [address] [place] [address] Care Team Providers Care Building Insulation Installer Name Role Phone Jennifer Downing MD Primary Care Provider Antoni Grace Jr Unavailable REASON FOR VISIT COLON SCREENING Encounters Encounter Location Date Provider Diagnosis [facility] [address] [place] [phone] 12/12/2024 Antoni Gerardo Jr Plan Of Treatment Next Appt Details Provider Name:Antoni loera Jr, 05/26/2025 10:40:00 AM, [address] [place] [address], [id number], Progress Notes * KATE ADAIRSDOB:1955 (69 yo M)Acc No.[id number]:12/12/2024 Progress Notes Patient: JERMAINE MCLAIN Provider: Gordon Gerardo MD :1955 A ge:68 Y S ex:Male Date:12/12/2024 Address:[address] [place], [place] [phone] Pcp:Jeninfer Downing MD Subjective: * Chief Complaints: * C OLON SCREENING Billing Information: * Procedure Codes: * The named appointment provid er may or may not be the originator of this progress note, and it is not deemed complete until electronically signed by the appointment provider. Sign off status: Pending * Provider: Gordon Gerardo MD Date: 0 12/12/2024 Generated for Printi ng/Faxing/eTransmitting on: 07/11/2024 05:51 PM EST
--- OUTSIDE RECORDS SUMMARY | 2025-05-11 17:51 | XMS_ITS | Patient Health Record ---
Author Organization [facility] Address [address] [place] [address] Care Team Providers Care Metal Buffer Name Role Phone Jennifer Downing MD Primary Care Provider Antoni Grace Jr Unavailable Reason For Referral No Information Medications Medication SIG (Take, Route, Frequency, Duration) Notes Start Date End Date Status Tylenol Active traMADol HCl 5 MG/ML Solution as directed Orally Active Vitamin C Active Immunizations Vaccine Route Administration Date Status Comme nts Influenza Unknown 04/19/2024 Administered Social History Tobacco Use: Social History Observation Description Date Details (start date - stop date) Former Smoker NA - NA Social History Drug/Alcohol: Social Info Question Answer Notes AUDIT-C (Standard) Did you have a drink containing alcohol in the past year? 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 Problems Problem Type SNOMED Code ICD Code Onset Dates Problem Status W/U Status Risk Notes Problem Pre-procedure evaluation check (072246856) Encounter for other preprocedural examination (Z01.818) Active confirmed Problem Screening for colon cancer (866540262) Screening for colon cancer (Z12.11) Active confirmed Problem History of adenomatous polyp of colon (786426596) History of adenomatous polyp of colon (Z86.0101) Active confirmed Vital Signs Temperature 97.1 degrees Fahrenheit 04/19/2025 Blood pressure diastolic 01 mm Hg 04/19/2025 Height 64 in 04/19/2025 Blood pressure systolic 001 mm Hg 04/19/2025 Weight 197.1 lbs 04/19/2025 BMI 33.83 kg/m2 04/19/2025 Encounters Encounter Location Date Provider Diagnosis [facility] [address] [place] [address] 04/19/2025 Antoni Gerardo Jr Encounter for other preprocedural examination Z01.818 ; Screening for colon cancer Z12.11 and History of adenomatous polyp of colon Z86.0101 [facility] [address] [place] [address] 12/12/2024 Antoni Gerardo Jr Assessments Encounter Date Diagnosis (ICD Code) Assessment Notes Treatment Notes Treatment Clinical Notes Section Notes 04/19/2025 Encounter for other preprocedural examination (ICD-10 - Z01.818) We discussed colonoscopy including risks and benefits today. He understands these and agrees to proceed. This will be scheduled at his convenience. 04/19/2025 Screening for colon cancer (ICD-10 - Z12.11) We discussed colonoscopy including risks and benefits today. He understands these and agrees to proceed. This will be scheduled at his convenience. 04/19/2025 History of adenomatous polyp of colon (ICD-10 - Z86.0101) We discussed colonoscopy including risks and benefits today. He understands these and agrees to proceed. This will be scheduled at his convenience. Plan Of Treatment Future Test Test Name Order Date COLONOSCOPY 04/19/2025 Next Appt Details Provider Name:Antoni loera Jr, 05/26/2025 10:40:00 AM, [address] [facility] , [place], [place], [id number], Insurance Providers Payer Name Payer Address Payer Phone Subscriber Number Group Number Insured Name Patient Relationship to Insured Coverage Start Date Coverage End Date [employer] [address] [place] [phone] [id number] JERMAINE ADAIR Self - patient is the insured Medical (General) History Medical History History ICD Code Arthritis
--- NOTE | 2025-05-23 13:36 | HO.ANESPROP2 ---
Documented by User: Susan Landrum NP 05/23/25 13:37 HPI - Anesthesia Eval Consult details Narrative: 69yo M for Colonoscopy PMFSH Active Problems Active Problems: All Active Problems Swelling of right lower extremity (Acute) Peripheral vascular disease (Acute) BRBPR (bright red blood per rectum) (Acute) Annual wellness visit (Acute) Tubular adenoma of colon (Acute) Constipation (Acute) Gout attack (Acute) Hypogonadism in male (Acute) Personal history of tobacco use (Acute) Hearing difficulty (Acute) Dysphagia (Acute) Flank pain (Acute) Fall (Acute) Painful arc syndrome of right shoulder (Acute) Erectile dysfunction (Acute) BPH (benign prostatic hyperplasia) (Acute) Compression fracture of T11 vertebra (Acute) Osteoarthrosis, generalized, hand (Acute) Foot pain, bilateral (Acute) Microscopic hematuria (Acute) Diverticulosis (Acute) Chronic pain (Acute) Hoarseness (Acute) Allergic rhinitis (Acute) Bilateral lower extremity edema (Acute) Eczema (Acute) Rosacea (Acute) Osteoarthritis (Acute) GERD (gastroesophageal reflux disease) (Acute) Hypercholesterolemia (Acute) Hypertension (Acute) Past Medical History Medical History Swelling of right lower extremity Multiple joint pain Hematuria Right shoulder pain Weak urinary stream Rotator cuff arthropathy of right shoulder Iron deficiency anemia Personal history of tobacco use Anemia Diverticulosis Overweight (BMI 25.0-29.9) Osteoarthritis Tubular adenoma of colon Alcohol abuse GERD (gastroesophageal reflux disease) Hypercholesterolemia Hypertension Family History Family History Father CVD (cardiovascular disease) Stroke Mother No problems noted. Paternal Aunt Myocardial infarction Paternal Uncle Myocardial infarction Brother No problems noted. Sister No problems noted. Daughter No problems noted. Surgical History Surgical History History of colonoscopy History of excision of lesion History of tonsillectomy Social History Social History Household Members: Significant Other Housing: Apartment Are you a primary nursing care attendant to a significant other at home: No Do you presently have visiting nurse or other home services: No Alcohol intake: never Patient Tobacco Use Status: Former Tobacco user Tobacco use type: Cigarette Years Smoked: 2013, intermittent 15 year old e-Cigarette/Vaping Use: Never Used Second Hand Smoke Exposure: No Have you been hit, kicked, punched, or otherwise hurt by someone within the past year? 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 Cognitive needs: No Hearing needs: No Vision needs: Yes (glasses) Meds Allergies Allergy/AdvReac Type Severity Reaction Status Date / Time No Known Allergies (No Known Allergy Verified 03/16/25 10:14 Allergies*) Home Medications ?Medication ?Instructions ?Recorded ?Confirmed ?Last Taken ?Type Tylenol Arthritis 650 mg PO Q8-10H PRN Pain 04/26/20 05/24/25 Unknown History Assessment and Plan Assessment Anesthesia Assessment: Chart Reviewed Documented by User: Dorothy Ventura MD 05/26/25 11:07 [facility] Past Medical History Medical History Swelling of right lower extremity Multiple joint pain Hematuria Right shoulder pain Weak urinary stream Rotator cuff arthropathy of right shoulder Iron deficiency anemia Personal history of tobacco use Anemia Diverticulosis Overweight (BMI 25.0-29.9) Osteoarthritis Tubular adenoma of colon Alcohol abuse GERD (gastroesophageal reflux disease) Hypercholesterolemia Hypertension Family History Family History Father CVD (cardiovascular disease) Stroke Mother No problems noted. Paternal Aunt Myocardial infarction Paternal Uncle Myocardial infarction Brother No problems noted. Sister No problems noted. Daughter No problems noted. Family history of problems with anesthesia: No Surgical History Surgical History History of colonoscopy History of excision of lesion History of tonsillectomy History of Problems with Anesthesia: No Social History Social History Household Members: Significant Other Housing: Apartment Are you a primary nursing care attendant to a significant other at home: No Do you presently have visiting nurse or other home services: No Alcohol intake: never Patient Tobacco Use Status: Former Tobacco user Tobacco use type: Cigarette Years Smoked: 2013, intermittent 15 year old e-Cigarette/Vaping Use: Never Used Second Hand Smoke Exposure: No Have you been hit, kicked, punched, or otherwise hurt by someone within the past year? 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 Cognitive needs: No Hearing needs: No Vision needs: Yes (glasses) Meds Allergies Allergy/AdvReac Type Severity Reaction Status Date / Time No Known Allergies (No Known Allergy Verified 03/16/25 10:14 Allergies*) Home Medications ?Medication ?Instructions ?Recorded ?Confirmed ?Last Taken ?Type Tylenol Arthritis 650 mg PO Q8-10H PRN Pain 04/26/20 05/24/25 Unknown History Exam Airway Mallampati Class: II TM Dist: >3cm Neck ROM: Full 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
[2025-05-24 10:10] VITALS: BMI 33.8
[2025-05-26] MEDS: Lactated Ringers 1,000 ML 100 ML IVCONT (10:09)
[2025-05-26 10:23] VITALS: BP 160/71; PULSE 69; RESP 18; TEMP 36.6; O2SAT 98
--- NOTE | 2025-05-26 11:11 | P.HPSUR_ITS ---
Pre-Procedural Eval Section A - 24 Hr Update-Section A only Date of Service: 05/26/25 Section B - Complete if H&P > 30 days Chief Complaint: hx adenomatous colon polyps,screening Details of Present Illness: screening Relevant Family History (Specify if Yes): No Relevant Social History: None Present Medications: see Short Stay Collaborative assessment Medical History: No relevant PMH History of Previous Operations: No relevant previous surgery Allergies: Allergies Allergy/AdvReac Type Severity Reaction Status Date / Time No Known Allergies (No Known Allergy Verified 03/16/25 10:14 Allergies*) Review of Systems Sugical H&P ROS: Negative: Constitution, Cardiovascular, Respiratory, Neurological, Psychiatric, Hem-Onc, Allergic/Immunologic, Gastrointestinal, Genitourinary, Musculoskeletal, Integumentary, Endocrine and Eyes/ Ears/Nose/Throat Exam Surgical H&P Exam: Normal: HEENT, Normal: Heart, Normal: Lungs, Normal: Extremities, Normal: Abdomen, Normal: Skin and Normal: Neurological Plan Diagnosis/Plan: Unchanged I have reviewed the history and physical and performed a pertinent physical examination on my patient. No changes have occurred unless specified. Time Spent With Patient Time: Total time managing care of this patient today ____ minutes.
[2025-05-26 12:00] VITALS: BP 97/49; PULSE 67; RESP 18; TEMP 36.4; O2SAT 97
[2025-05-26 12:15] VITALS: BP 117/57; PULSE 56; RESP 16; O2SAT 98
[2025-05-26 12:30] VITALS: BP 130/90; PULSE 57; RESP 16; TEMP 36.3; O2SAT 96
--- NOTE | 2025-05-26 22:39 | OP_ITS ---
DATE OF SERVICE: 05/26/2025 SURGEON: Antoni Gerardo MD INDICATIONS: Colon cancer screening and prior history of adenomatous colon polyps. PREOPERATIVE DIAGNOSIS: POSTOPERATIVE DIAGNOSIS: PROCEDURE PERFORMED: Colonoscopy to the cecum. ESTIMATED BLOOD LOSS: COMPLICATIONS: ANESTHESIA: Monitored anesthesia care. ASSISTANTS: SPECIMENS: DESCRIPTION OF PROCEDURE: A history and physical was performed. The risks and benefits of the procedure were explained to the patient. Informed consent was obtained. The patient was placed in the left lateral decubitus position. A digital rectal exam was performed and was found to be normal. The Olympus pediatric video colonoscope was introduced into the rectum and advanced to the cecum. The cecum was identified by transillumination, palpation, and identification of ileocecal valve. Examination was performed. The scope was removed. He tolerated the procedure well and was returned to recovery area in stable condition. FINDINGS: The terminal ileum was not examined. The visualized colonic mucosa was within normal limits without evidence of masses or ulcers. The quality of the prep was fair with some liquid and semi-formed stool, limiting the sensitivity examination for detection of small polyps, this was washed and suctioned as best possible. There was moderate diverticulosis throughout the colon. Retroflexed examination was normal. IMPRESSION: Normal colonoscopy. RECOMMENDATIONS: 1. Follow up as needed. 2. Repeat colonoscopy is recommended in 5 years because of the patient's limitations on today's examination. MD AMY Humphreys/NOEL / [id number]
== END 2025-05-26 13:03 | disposition home or self-care (01) ==
PROVIDERS: PCP Internal Medicine; Visit Provider Internal Medicine Gastroenterology
PROC: 0DJD8ZZ Inspection of Lower Intestinal Tract, Via Natural or Artificial Opening Endoscopic (ICD-10-PCS; CPT 45378; principal; 2025-05-26 10:40)
DX: Z12.11 Encounter for screening for malignant neoplasm of colon (principal); Z86.0101 Personal history of adenomatous and serrated colon polyps; K57.30 Diverticulosis of large intestine without perforation or abscess without bleeding
CPT/HCPCS: G0105; J2003; J2250; J2704

== ENCOUNTER 2025-06-21 08:44 | Outpatient (AMB) | payer MEDICARE, SELFPAY ==
--- OUTSIDE RECORDS SUMMARY | 2024-12-12 04:20 | XMS_ITS ---
Author Organization [facility] Address [address] [place] [address] Care Team Providers Care Analyst Food And Beverage Name Role Phone Jennifer Downing MD Primary Care Provider Antoni Grace Jr REASON FOR VISIT COLON SCREENING Encounters Encounter Location Date Provider Diagnosis [facility] [address] [place] [phone] 12/12/2024 Antoni Gerardo Jr Plan Of Treatment No Information Progress Notes * KATE ADAIRSDOB:1955 (69 yo M)Acc No.[id number]:12/12/2024 Progress Notes Patient: JERMAINE MCLAIN Provider: Gordon Gerardo MD :1955 A ge:68 Y S ex:Male Date:12/12/2024 Address:[address] [place], [place] [phone] Pcp:Jennifer Downing MD Subjective: * Chief Complaints: * C OLON SCREENING Billing Information: * Procedure Codes: * The named appointment provid er may or may not be the originator of this progress note, and it is not deemed complete until electronically signed by the appointment provider. Sign off status: Pending * Provider: Gordon Gerardo MD Date: 0 12/12/2024 Generated for Kian espinoza/Aly/Ziaitting on: 08:48 AM EST
--- OUTSIDE RECORDS SUMMARY | 2025-05-26 05:40 | XMS_ITS ---
Author Organization [facility] Address [address] [place] [address] Care Team Providers Care Mechanical Manufacturing Technician Name Role Phone Jennifer Downing MD Primary Care Provider Antoni Grace Jr REASON FOR VISIT screening, hx polyps Encounters Encounter Location Date Provider Diagnosis [facility] [address] [place] [phone] 05/26/2025 Antoni Gerardo Jr Plan Of Treatment No Information Progress Notes * KATE ADAIRSDOB:1955 (69 yo M)Acc No.[id number]:05/26/2025 COLON WITH MAC Patient: JERMAINE MCLAIN Provider: Gordon Gerardo MD :1955 A ge:69 Y S ex:Male Date:05/26/2025 Address:[address] [place], [place] [id number] Pcp:Jnenifer Downing MD Subjective: * Chief Complaints: * S creening, hx polyps Billing Information: * Procedure Codes: * The named appointment provid er may or may not be the originator of this progress note, and it is not deemed complete until electronically signed by the appointment provider. Sign off status: Pending * Provider: Gordon Gerardo MD Date: 07/27/2024 Generated for Kian espinoza/Aly/Ziaitting on: 08:48 AM EST
--- OUTSIDE RECORDS SUMMARY | 2025-06-21 08:48 | XMS_ITS | Patient Health Record ---
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 Problems Problem Type SNOMED Code ICD Code Onset Dates Problem Status W/U Status Risk Notes Problem Pre-procedure evaluation check (924756658) Encounter for other preprocedural examination (Z01.818) Active confirmed Problem Screening for colon cancer (842679482) Screening for colon cancer (Z12.11) Active confirmed Problem History of adenomatous polyp of colon (913193216) History of adenomatous polyp of colon (Z86.0101) Active confirmed Vital Signs Temperature 97.1 degrees Fahrenheit 04/19/2025 Blood pressure diastolic 01 mm Hg 04/19/2025 Height 64 in 04/19/2025 Blood pressure systolic 001 mm Hg 04/19/2025 Weight 197.1 lbs 04/19/2025 BMI 33.83 kg/m2 04/19/2025 Encounters Encounter Location Date Provider Diagnosis [facility] [address] [place], [place] [id number] 05/26/2025 Antoni Gerardo Jr [facility] [address] [place] [id number] 04/19/2025 Antoni Gerardo Jr Encounter for other preprocedural examination Z01.818 ; Screening for colon cancer Z12.11 and History of adenomatous polyp of colon Z86.0101 [facility] [address] [place] [id number] 12/12/2024 Antoni Gerardo Jr [facility] [address] [place] [id number] 05/22/2025 Antoni Gerardo Jr Assessments Encounter Date Diagnosis [...] Test Test Name Order Date COLONOSCOPY 04/19/2025 Insurance Providers Payer Name Payer Address Payer Phone Subscriber Number Group Number Insured Name Patient Relationship to Insured Coverage Start Date Coverage End Date MEDICARE S[employer]IOR PLAN [address] [place] [phone] [id number] JERMAINE ADAIR Self - patient is the insured Medical (General) History Medical History History ICD Code Arthritis
[2025-06-21 08:51] VITALS: BP 134/68; PULSE 55; O2SAT 97; BMI 30.9
--- NOTE | 2025-06-21 08:51 | MHC.PC.OV ---
Vital Signs 06/21/25 08:51 Height 5 ft 4 in Weight 180 lb BMI 30.9 BP 134/68 Blood Pressure Location Lt brachial Position Sitting Pulse 55 Pulse Source Pulse Oximeter Pulse Oximetry (%) 97 Oxygen Delivery Method Room Air Intake Visit Reasons: Tubular adenoma, PVD Allergies No Known Allergies (No Known Allergies*) Allergy (Verified 06/21/25 08:52) Tobacco use date assessed: 03/02/25 Fall risk assessment: No Falls in past year Last assessed Fall Risk: 06/21/25 Dental Screening Dental Screen Date: 03/02/25 HPI HPI Comments History of Present Illness Details History of Present Illness The patient is a 69-year-old male presenting for follow-up on chronic conditions and a new complaint of bilateral knee pain. His past medical history is significant for obesity, hypertension, hypercholesterolemia, GERD, a compression fracture of the thoracic vertebra, benign prostatic hyperplasia (BPH), and a history of tubular adenoma of the colon. The patient reports new onset of bilateral knee pain, which started suddenly about two months ago. He describes the pain as intermittent, and if it is not in his knees, he feels it in his toes. He denies any fall or trauma to the area. The patient also reports a sensation of stiffness and heaviness in his knees. Regarding his gastrointestinal health, the patient recently underwent a colonoscopy which was normal with no polyps found. Due to family history, he is advised to have a repeat colonoscopy in five years. For his urologic issues, including hematuria and hypogonadism, he follows up with urology. A recent cystoscopy was normal, and he continues to take tadalafil. The patient has a history of lower extremity swelling, for which an ultrasound in February was negative. His labs from February 22 revealed a stable, non-severe chronic anemia, and he is taking iron and vitamin C supplements. The anemia is considered anemia of chronic disease and is not from active bleeding. Health Maintenance The patient had not yet received an influenza vaccine this season. The high-dose flu shot will be administered during today's visit. He was advised on preventive measures during flu season, such as avoiding people who are coughing and practicing good hand hygiene. Social History - Employment: The patient reports being on his feet all day for work. Results - Labs (February 22): Showed chronic anemia. - Electrolytes, renal function, blood sugar, and liver function were normal. - Cholesterol, PSA, B12, folic acid, and thyroid levels were within normal limits. - Testosterone level was 335. - Imaging (February): Lower extremity ultrasound for swelling was negative. - Procedures: A recent colonoscopy was normal with no polyps. - A recent cystoscopy was normal. [facility] Medical History (Updated 06/21/25 @ 15:21 by Jennifer Downing MD) Swelling of right lower extremity Multiple joint pain Hematuria Right shoulder pain Weak urinary stream Rotator cuff arthropathy of right shoulder Iron deficiency anemia Personal history of tobacco use Anemia Diverticulosis Overweight (BMI 25.0-29.9) Osteoarthritis Tubular adenoma of colon Alcohol abuse GERD (gastroesophageal reflux disease) Hypercholesterolemia Hypertension Surgical History History of colonoscopy History of excision of lesion History of tonsillectomy Family History Father CVD (cardiovascular disease) Stroke Mother No problems noted. Paternal Aunt Myocardial infarction Paternal Uncle Myocardial infarction Brother No problems noted. Sister No problems noted. Daughter No problems noted. 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 Cognitive needs: No Hearing needs: No Vision needs: Yes (glasses) Questionnaire Thrive Questionnaire Date Thrive assessed: 03/02/25 What is your living situation today?: I have a steady place to live Within the past 12 months, did the food you bought not last and you didn't have the money to get more?: Never true Within the past 12 months, did you worry whether your food would run out before you got money to buy more?: Sometimes True Do you have trouble paying for medicines?: No Do you have trouble getting transportation to medical appointments?: No Do you have trouble paying your heating and electricity bill?: No Do you have trouble taking care of your child, family member or friend?: No Do you have trouble with day-to-day activities such as bathing, preparing meals, shopping, managing finances, etc.?: No Are you currently unemployed and looking for a job?: No Are you interested in more education?: No Currently or been in a relationship where the following occur: No concerns reported THRIVE Score: 1 LUIS M-7 AMB Questionnaire LUIS M-7 Date LUIS M - 7 assessed: 07/28/24 Source: Developed by Drs. Mazin Puri, Felisa Smith, Khadar Garcia and colleagues, with an educational nayana from [employer]. Review of Systems Narrative Review of Systems - Constitutional: Reports feeling well. - Musculoskeletal: Reports intermittent bilateral knee pain for the past two months, describing it as stiffness and a heavy feeling. - Also reports intermittent toe pain. - Denies recent falls or trauma. - Cardiovascular: Reports history of lower extremity swelling. - Gastrointestinal: Denies polyps on recent colonoscopy. - Hematologic: Denies symptoms of active bleeding. Physical exam (Primary Care) Vital Signs: Last Vital Signs Pulse 55 06/21/25 08:51 BP 134/68 06/21/25 08:51 Pulse Ox 97 06/21/25 08:51 Oxygen Delivery Method Room Air 06/21/25 08:51 BMI result Body Mass Index 30.9 Tobacco/Smoking Status: Tobacco use Status Tobacco use date assessed 03/02/25 06/21/25 08:52 Patient Tobacco Use Status Former Tobacco user 06/21/25 08:52 Tobacco use type Cigarette 06/21/25 08:52 e-Cigarette/Vaping Use Never Used 06/21/25 08:52 Thrive Assessment: Date of Thrive Assessment Date Thrive assessed 03/02/25 06/21/25 08:52 Currently or been in a relationship where the following occur: No concerns reported Narrative Physical Exam - Respiratory: Lungs are clear to auscultation. - Musculoskeletal: On examination of the knees, no pain was elicited with superficial palpation. - Mild tenderness noted with deeper palpation. - Stiffness noted on examination. Const General: alert; No acute distress Eyes Conjunctivae: conjunctivae normal Resp Auscultation: clear to auscultation bilaterally Cardio Rate: regular rate Rhythm: regular rhythm GI Inspection: Yes normal to inspection Extrem General: Yes normal to inspection and No edema Office Procedures Flu Questionnaire Does the patient have a severe egg allergy?: No Does the patient have severe life threatening allergies?: No Does the patient have a fever or illness today?: No Has the patient ever had Guillain-[place] Syndrome?: No Has the patient ever had any past reaction to a flu shot?: No Immunizations Fluarix [id number] (PF) 45 mcg (15 mcg x 3)/0.5 mL IM syringe Performing Provider: Jennifer Downing MD [facility] Administered by: Radha Gaitan CMA on 06/21/25 09:36 Dose Route Admin Location Dispensed Lot Number Expiration Date NDC Umbrella Frame Maker 0.5 mL IM Left Deltoid 0.5 mL [id number] 12/19/25 [id number] Granular VIS Given Date VIS Provided VIS Publication Date 06/21/25 Single Vaccine 24 Eligibility Eligibility Date Funding Source Not [facility] Eligible 06/21/25 Private Coding Level of Care Code Est Pt Level 4 (50628) Add On Problem Visit Only Diagnoses Essential hypertension I10 Hypertension type: essential hypertension Hypercholesterolemia E78.00 Hypogonadism in male E29.1 Gastroesophageal reflux disease without esophagitis K21.9 Esophagitis presence: without esophagitis Tubular adenoma of colon D12.6 Erectile dysfunction N52.9 Compression fracture of T11 vertebra S22.080A Knee pain M25.569 Assessment & Plan Assessment & Plan (1) Hypertension: Code(s): I10 - Essential (primary) hypertension Category: Medical Qualifiers: Hypertension type: essential hypertension Qualified Code(s): I10 - Essential (primary) hypertension Plan: Continue with blood pressure medication. Decrease salt intake and exercise patient on lisinopril 40 mg once a day (2) Hypercholesterolemia: Code(s): E78.00 - Pure hypercholesterolemia, unspecified Category: Medical Plan: Avoid fried foods, chicken skin, eggs, butter margarine, pastries and meat. Be it pork or beef they have a lot of cholesterol LDL goal of less than 130 and triglyceride of less than 150 (3) Hypogonadism in male: Code(s): E29.1 - Testicular hypofunction Category: Medical Plan: Patient follows up with urology cystoscopy negative (4) GERD (gastroesophageal reflux disease): Code(s): K21.9 - Gastro-esophageal reflux disease without esophagitis Category: Medical Qualifiers: Esophagitis presence: without esophagitis Qualified Code(s): K21.9 - Gastro-esophageal reflux disease without esophagitis Plan: Avoid the foods that causes that usually spicy foods, tomato products, juices, coffee, soda and foods that your sensitive to. After eating do not lie down, allow 3-4 hours before in lie down. And keep the head of bed above 30 degrees to avoid the acid from going up. (5) Tubular adenoma of colon: Comment: (TAs on 2010 scope, normal 2016 scope) 2019, May 2025 Code(s): D12.6 - Benign neoplasm of colon, unspecified Category: Medical Plan: Status post colonoscopy May 2025 5 years (6) Erectile dysfunction: Code(s): N52.9 - Male erectile dysfunction, unspecified Category: Medical Plan: Placed on tadalafil (7) Compression fracture of T11 vertebra: Comment: CT scan 2021, states 08/[address]21 fall stairs Code(s): S22.080A - Wedge compression fracture of T11-T12 vertebra, initial encounter for closed fracture Category: Medical (8) Knee pain: Comment: bilateral Code(s): M25.569 - Pain in unspecified knee Category: Medical Plan Plan Patient was informed and verbally consented to the use of an ambient scribe for clinic note documentation during this visit. 1. Bilateral Knee Pain The patient presented with new onset bilateral knee pain for two months without preceding trauma, suspicious for arthritis. A referral for bilateral knee X-rays has been placed to confirm the diagnosis. A prescription for a topical gel, such as Voltaren gel, has been sent to the pharmacy for pain relief. The patient was counseled that if this is arthritis, there is no cure, and was advised against believing advertisements for miracle treatments. The importance of weight management for alleviating knee symptoms was also discussed. Will follow up on the X-ray results. 2. Hypertension The patient's hypertension is stable. He will continue taking lisinopril 40 mg daily. 3. Anemia Of Chronic Disease The patient has a stable, chronic anemia, which is not due to active bleeding per his recent negative colonoscopy. No active intervention is required at this time. 4. History Of Tubular Adenoma Of Colon The patient's recent colonoscopy was normal with no polyps found. He is advised to undergo a repeat surveillance colonoscopy in 5 years. 5. Benign Prostatic Hyperplasia With Hematuria The patient follows with urology for his BPH and history of hematuria. His recent cystoscopy was normal. He will continue tadalafil as directed by urology. 6. Pain Management A refill for the patient's tramadol was provided for his chronic pain. Discussion Notes I had a detailed discussion with the patient regarding his new onset of bilateral knee pain. I explained that given the bilateral nature and lack of trauma, arthritis is a likely cause. I informed him that we need to confirm the diagnosis with an X-ray before discussing further treatments like injections. I prescribed a topical gel for symptomatic relief while clarifying that it is not a cure, and I counseled him to be wary of advertised magic cures for arthritis. We also discussed the importance of weight management in reducing stress on his joints. I reviewed his recent test results, reassuring him that his chronic anemia is stable and not related to active bleeding, as his recent colonoscopy was negative. I confirmed his colonoscopy was normal and the plan is for surveillance in 5 years. Finally, I recommended he receive his influenza vaccine today, as he had not yet been vaccinated for the season, and he agreed. I will follow up with him once the knee X-ray results are available. Patient Instructions - Please go to the lab to have X-rays of both of your knees. - I have sent a prescription for a pain relief gel to your pharmacy. - You can rub this on your knees to help with the pain, but it will not cure the problem. - I have sent a refill for your tramadol pain medication to your pharmacy. - You will receive a flu shot today before you leave the office. - Please try to manage your weight, as this will help reduce the strain on your knees. - Continue taking all your other medications as prescribed, including lisinopril for blood pressure. - We will contact you with the results of your knee X-rays. Orders: Orders XR knee standing BI Today M25.569 - Pain in unspecified knee Influenza [id number] Immunization Today Z23 - Encounter for immunization Medications: New diclofenac sodium 1% (Voltaren Arthritis Pain) apply to single knee, ankle, foot; for foot includes sole/toes/top of foot 4 grams topical QID 100 grams 2RF M25.569 - Pain in unspecified knee
== END 2025-06-21 09:43 | disposition home or self-care (01) ==
LOC: HO.HMCH 08:45
PROVIDERS: PCP Internal Medicine; Visit Provider Internal Medicine
DX: I10 Essential (primary) hypertension (principal); E78.00 Pure hypercholesterolemia, unspecified; E29.1 Testicular hypofunction; K21.9 Gastro-esophageal reflux disease without esophagitis; D12.6 Benign neoplasm of colon, unspecified; N52.9 Male erectile dysfunction, unspecified; S22.080A Wedge compression fracture of T11-T12 vertebra, initial encounter for closed fracture; M25.569 Pain in unspecified knee; Z23 Encounter for immunization

== ENCOUNTER 2025-06-21 08:44 | Outpatient (REF) | payer MEDICARE, SELFPAY ==
--- NOTE | ~2025-06-21 | XR_ITS ---
EXAMINATION: XR KNEE AP STANDING CIARA CLINICAL INFORMATION: M25.569 - Pain in unspecified knee COMPARISON: None available. TECHNIQUE: AP view bilateral knees standing, and lateral views each knee. FINDINGS: RIGHT KNEE: No fracture, dislocation, or suspicious bone lesion. There is normal alignment. Moderate tricompartmental osteoarthritis, with more severe changes in the medial compartment where there is significant joint loss and near [id number] appearance. There is spurring of the tibial spines. There are small marginal osteophytes. There is a small suprapatellar joint effusion. The soft tissues demonstrate mild vascular calcifications. LEFT KNEE: No fracture, dislocation, or suspicious bone lesion. There is normal alignment. Moderate tricompartmental osteoarthritis, with more severe changes in the medial compartment where there is significant joint loss and near [id number] appearance. There is spurring of the tibial spines. There are small marginal osteophytes. There is a small suprapatellar joint effusion. The soft tissues demonstrate mild vascular calcifications. XR/XR knee standing BI IMPRESSION: 1. No acute bony or soft tissue abnormalities. 2. Tricompartmental osteoarthrosis, moderate to severe in the medial compartments. 3. Small joint effusions. Electronically signed by: Charanjit Herbert MD 06/21/2025 12:56 PM [facility]
== END 2025-06-21 08:45 | disposition home or self-care (01) ==
LOC: HO.XRAY 08:44
PROVIDERS: PCP Internal Medicine; Visit Provider Internal Medicine
DX: M25.561 Pain in right knee (principal); M25.562 Pain in left knee; I10 Essential (primary) hypertension; E29.1 Testicular hypofunction; K21.9 Gastro-esophageal reflux disease without esophagitis; D12.6 Benign neoplasm of colon, unspecified; N52.9 Male erectile dysfunction, unspecified; D64.9 Anemia, unspecified; N40.0 Benign prostatic hyperplasia without lower urinary tract symptoms; R31.9 Hematuria, unspecified; S22.080A Wedge compression fracture of T11-T12 vertebra, initial encounter for closed fracture; X58.XXXA Exposure to other specified factors, initial encounter; Y93.9 Activity, unspecified; Y92.9 Unspecified place or not applicable; Y99.9 Unspecified external cause status; Z23 Encounter for immunization
CPT/HCPCS: 73565; 90471; 90656; 99212

== ENCOUNTER → 2025-06-21 09:57 | Outpatient (BNV) | payer MEDICARE, SELFPAY | PROVIDERS: PCP Internal Medicine; Visit Provider Radiology Diagnostic Radiology | DX: M17.0 Bilateral primary osteoarthritis of knee (principal); M25.461 Effusion, right knee; M25.462 Effusion, left knee | CPT/HCPCS: 73565 ==